=== PATIENT | female | born 1935 | race Caucasian/White ===

== ENCOUNTER → 2017-08-07 12:31 | Outpatient (CLI) | payer MEDICARE, OTHER, SELFPAY ==
--- NOTE | 2017-08-07 | DI.RAD.S_ITS ---
PROCEDURE: FL BARIUM SWALLOW W SPEECH INDICATIONS: DYSPHAGIA TECHNIQUE: Examination was conducted in conjunction with speech pathology per standard protocol. In the lateral projection, filming was performed of the patient swallowing. AP projection filming may also be performed with patient swallowing. COMPARISON: None. FINDINGS: Function: The oral preparatory phase appears normal, with proper containment. The subsequent oral propulsive phase, pharyngeal phase, and esophageal phase of swallowing also appear normal with all proffered substances. No laryngotracheal penetration or aspiration. No pathologic vallecular pooling. In the AP view with swallowing of thick barium, secondary peristalsis appeared sluggish with residual in the proximal esophagus Morphology: No cricopharyngeal bar is identified. No cervical esophageal webs. No Zenker's diverticulum. No strictures. IMPRESSION: Normal-appearing modified barium swallow. Please see speech therapist report for details. Dictated by: Srini Bauer M.D. on 08/07/2017 at 13:46 Approved by: Srini Bauer M.D. on 08/07/2017 at 13:47
--- NOTE | 2017-08-11 11:55 | ST.SWALLOW ---
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 Modified Barium Swallow Study Start: 08/07/17 14:23 Freq: Status: Active Protocol: Document 08/07/17 14:24 TLC (Rec: 08/07/17 14:27 TLC [id number]) Modified Barium Swallow Study Total Time Visit Start Time 12:50 Visit Stop Time 01:10 Total Visit Minutes 20 Referral Referring Physician Matheus Reason for Referral hoarseness, swallowing difficulties Setting Setting Outpatient Care Patient Information Identification Type Name Patient History Oxana is an 82 year old female with history of two esophageal surgeries (1998, 1999) who presents with recent onset (8 months ago) of loss of smell and taste as well as hoarseness which she states varies from day to day. She has thyroid nodules and GERD for which she takes Nexium; however, she denied any neurological history or other significant medical history. She denies any coughing or choking when swallowing, but states occasionally she feels like food/secretions get stuck in her throat. Patient Positioning Position View Lat-A/P Imaging Lateral View Textures Administered Trials Presented Thin Liquid via Spoon Thin Liquid via Cup [place] Liquid via Spoon [place] Liquid via Cup Honey Liquid via Spoon Dysphagia Blenderized Textures Regular Textures Oral Phase Source: MBSIMP (TM) (C) Bolus Specific Scoring Grid Lip Closure No Impairment (WNL) Tongue Control During Bolus Hold No Impairment (WNL) Bolus Prep/Mastication No Impairment (WNL) Bolus Transport/Lingual Motion No Impairment (WNL) Oral Residue Mild Impairment Residue Clearing Mild Impairment Additional Oral Phase Observations Observed residue collection on tongue with all textures. Pharyngeal Phase Source: MBSIMP (TM) (C) Bolus Specific Scoring Grid Delayed Initiation of Pharyngeal Swallow No Soft Palate Elevation No Impairment (WNL) Clearance of Residue Along Tongue Base No Impairment (WNL) Laryngeal Elevation No Impairment (WNL) Anterior Hyoid Movement No Impairment (WNL) Epiglottic Range of Motion No Impairment (WNL) Vallecular Residue Yes Clearance of Vallecular Residue Mild Impairment Laryngeal Vestibular Closure No Impairment (WNL) Pharyngeal Contraction No Impairment (WNL) Posterior Pharyngeal Wall Residue Yes Clearance of Posterior Pharyngeal Wall Mild Impairment Residue Upper Esophageal Sphincter Opening No Impairment (WNL) Residue in the Pyriform Sinuses Yes Clearance of Residue in the Pyriform Mild Impairment Sinuses Additional Pharyngeal Phase Observations Moderate pharyngeal residue in vallecula and pyriform sinuses with thin liquids. Trial of throat clear and double swallow decreased residue but did not clear fully. Mild residue in vallecular with nectar thick liquids and honey thick liquids. No penetration or aspiration observed during the study. A/P View Textures Administered Trials Presented [place] Liquid via Cup Dysphagia Blenderized Textures A/P View Observations Pharyngeal Contraction No Impairment (WNL) Esophageal Observations Esophageal Function Observed esophageal retention with pudding thick texture due to decreased peristalsis per radiologist. See radiologist report for further details. Clinical Impressions Findings Oxana presents with mild oropharyngeal dysphagia characterized by collection of oral and pharyngeal residue with thin liquids and solid textures which does not clear fully with a second swallow or liquid wash. Oxana may benefit from 3-5 outpatient speech therapy visits for ongoing education as well as implementation of a home exercise program consisting of pharyngeal strengthening exercises in an effort to reduce pharyngeal residue and improve overall swallow function. Given reports of vocal changes /hoarseness, recommend ENT consult for further evaluation as well as GI consult for evaluation of esophageal peristalsis. Patient Appropriate for Therapy No Recommendations Diet Liquids Order Thin Diet Order Regular Medication Recommendation As Tolerated Treatment Plan Recommended Referrals GI Consult ENT Consult Compensatory Strategies Recommendations Sitting Upright (90 deg) Double Swallow Small Bites and Sips Alternate Liquids/Solids Placement Recommendation After Discharge Home Please Sign and Return: I have reviewed this Plan of Care and certify that the skilled therapy services above are required to meet the patient???s needs. Physician Signature Date Printed Name and Credentials
== END ==
PROVIDERS: Family Provider Family Medicine; PCP Family Medicine; Visit Provider Family Medicine
DX: R13.10 Dysphagia, unspecified (principal)
CPT/HCPCS: 74230; 92611

== ENCOUNTER 2018-01-20 17:14 | Emergency (ER) | payer MEDICARE, OTHER, SELFPAY ==
--- NOTE | 2018-01-20 17:19 | DI.RAD.S_ITS ---
PROCEDURE: XR CHEST 1V INDICATIONS: chest pain TECHNIQUE: One view of the chest was acquired. COMPARISON: [facility], , CHEST 1 VIEW, 05/11/2016, 15:58. FINDINGS: Surgical changes and devices: None. Lungs and pleura: No pleural effusions or pneumothorax. Lungs are clear. Diffuse interstitial disease/scarring. Mediastinum: Mediastinal contours appear normal. Heart size is normal. Bones and chest wall: No suspicious bony lesions. Overlying soft tissues appear unremarkable. IMPRESSION: No acute disease. Dictated by: Allen Ling M.D. on 01/20/2018 at 17:43 Approved by: Allen Ling M.D. on 01/20/2018 at 17:45
[2018-01-20 17:24] VITALS: BP 140/74; PULSE 59; RESP 17; TEMP 36.6; O2SAT 100; BMI 21.9
[2018-01-20 17:30] VITALS: BP 118/73; PULSE 58; RESP 16; O2SAT 100
--- NOTE | 2018-01-20 17:37 | ED.CHESTPAIN ---
HPI - Chest Pain <Robert Rowland, DO - Last Filed: 01/24/18 07:15> General Chief Complaint: Chest Pain Stated Complaint: Chest Pains Time Seen by Provider: 01/20/18 17:32 Source: patient Mode of arrival: ambulatory Limitations: no limitations History of Present Illness HPI narrative: Patient is an 82-year-old female here for evaluation of left-sided chest pain. She states that it started yesterday morning. She states that it feels like a pressure. States that it has been a constant pain however she has had very brief episodes of having no pain. Went to bed with it last night. Had problems sleeping last night because of the pain. Had all day today. No shortness of breath. 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 States the pain is not worse with palpation or movement or deep breaths. Related Data Home Medications Medication Instructions Recorded Confirmed melatonin 3 mg PO HS #0 06/23/16 12/28/17 alprazolam 0.25 mg tablet 0.25 mg PO DAILY 08/20/17 01/20/18 cyanocobalamin (vit B-12) 1,000 1,000 mcg PO DAILY 08/20/17 12/28/17 mcg tablet esomeprazole magnesium 40 mg 40 mg PO BID cap 12/28/17 12/28/17 capsule,delayed release colesevelam [WelChol] 01/20/18 colesevelam [WelChol] 2 tab PO BID 01/20/18 01/20/18 fluticasone 1 spray INTRANASAL DAILY PRN 01/20/18 01/20/18 nefazodone 500 mg PO BEDTIME 01/20/18 01/20/18 warfarin 1 dose PO DIRECTED 01/20/18 01/20/18 Previous Rx's Medication Instructions Recorded hyoscyamine 0.125 mg 0.125 mg PO ONCE PRN #10 tab 08/20/17 disintegrating tablet FISH OIL 1,200 mg PO .QD #30 08/28/17 arginine (L-arginine) 500 mg 500 mg PO .QHS #30 cap 08/28/17 capsule calcium carbonate 500 mg calcium 500 mg PO BID #60 cap 08/28/17 (1,250 mg) capsule cholecalciferol (vitamin D3) 400 400 unit PO DAILY #30 cap 08/28/17 unit capsule ezetimibe 10 mg tablet 5 mg PO DAILY #30 tab 08/28/17 multivitamin tablet 1 tab PO DAILY #30 tab 08/28/17 niacin 50 mg tablet 50 mg PO BID #60 tab 08/28/17 trazodone 50 mg tablet 50 mg PO BEDTIME PRN #30 tab 08/28/17 Allergies Allergy/AdvReac Type Severity Reaction Status Date / Time Sulfa (Sulfonamide Allergy Severe TROUBLE Verified 01/20/18 17:24 Antibiotics) BREATHING [SULFA (SULFONAMIDE ANTIBIOTICS)] morphine [MORPHINE] Allergy Unknown Verified 01/20/18 17:24 Penicillins [PENICILLINS] Allergy Unknown Verified 01/20/18 17:24 Review of Systems <Robert Rowland DO - Last Filed: 01/24/18 07:15> Constitutional Denies fever(s) and Denies headache(s) ENT Ears, Nose, Mouth, and Throat: Denies headache(s) Cardiovascular Reports chest pain, Denies chest pain with activity, Denies edema, Denies irregular heart rhythm, Denies leg edema, Denies palpitations, Denies dyspnea and Denies slow heart rate Respiratory Denies cough and Denies dyspnea Gastrointestinal Gastrointestinal: Denies abdominal pain, Denies nausea and Denies vomiting Musculoskeletal Denies myalgias and Denies arthralgias Integumentary/Breasts Denies lesions and Denies rash Neurologic Denies confusion and Denies headache(s) Psychiatric Denies confusion Endocrine Denies palpitations Hematologic/Lymphatic Reports easy bleeding (On Coumadin) Exam <DO Guerrero Du Last Filed: 01/24/18 07:15> Initial Vital Signs Initial Vital Signs: Vital Signs Temperature 97.9 F 01/20/18 17:24 Pulse Rate 59 L 01/20/18 17:24 Respiratory Rate 17 01/20/18 17:24 Blood Pressure 140/74 01/20/18 17:24 Pulse Oximetry 100 01/20/18 17:24 Const General: cooperative, healthy appearing, comfortable, well developed, well groomed and No acute distress Orientation: alert, awake and oriented x3 HENMT Head: normal to inspection and normocephalic Chest Other: No tenderness to palpation in the left anterior chest wall Resp Effort & Inspection: normal respiratory effort and able to speak in complete sentences Auscultation: clear to auscultation bilaterally Cardio Rate: regular rate Rhythm: regular rhythm Pulses: radial pulses present GI Inspection: non-distended Palpation: soft Skin Lesions: no lesions Rashes: no rashes Neuro General: alert, awake and oriented x3 Extrem General: normal to inspection, capillary refill normal and No edema Psych Appearance: grossly normal and well kempt <Priscilla Snider DO - Last Filed: 01/20/18 20:00> Initial Vital Signs Initial Vital Signs: Vital Signs Temperature 97.9 F 01/20/18 17:24 Pulse Rate 59 L 01/20/18 17:24 Respiratory Rate 17 01/20/18 17:24 Blood Pressure 140/74 01/20/18 17:24 Pulse Oximetry 100 01/20/18 17:24 Course <Robert Rowland DO - Last Filed: 01/24/18 07:15> Orders Ordered: Discontinued Medications Sodium Chloride (Normal Saline 0.9%) 1,000 mls @ 1,000 mls/hr IV BOLUS ONE Stop: 01/20/18 18:36 Last Infusion: 01/20/18 19:24 Dose: 1,000 mls/hr Admin: 01/20/18 18:18 Dose: 1,000 mls/hr Vital Signs - 8 hr 01/20/18 17:24 01/20/18 17:30 01/20/18 17:49 Temperature 97.9 F Pulse Rate 59 L 58 L 108 H Respiratory Rate 17 16 16 Blood Pressure 140/74 Blood Pressure [Right Arm] 118/73 133/83 Pulse Oximetry 100 100 96 01/20/18 18:00 01/20/18 18:58 Temperature Pulse Rate 60 56 L Respiratory Rate 16 16 Blood Pressure Blood Pressure [Right Arm] 128/67 Pulse Oximetry 99 99 <Priscilla Snider DO - Last Filed: 01/20/18 20:00> Orders Ordered: Discontinued Medications Sodium Chloride (Normal Saline 0.9%) 1,000 mls @ 1,000 mls/hr IV BOLUS ONE Stop: 01/20/18 18:36 Last Infusion: 01/20/18 19:24 Dose: 1,000 mls/hr Admin: 01/20/18 18:18 Dose: 1,000 mls/hr Vital Signs - 8 hr 01/20/18 17:24 01/20/18 17:30 11/07/18 17:49 Temperature 97.9 F Pulse Rate 59 L 58 L 108 H Respiratory Rate 17 16 16 Blood Pressure 140/74 Blood Pressure [Right Arm] 118/73 133/83 Pulse Oximetry 100 100 96 01/20/18 18:00 01/20/18 18:58 Temperature Pulse Rate 60 56 L Respiratory Rate 16 16 Blood Pressure Blood Pressure [Right Arm] 128/67 Pulse Oximetry 99 99 MDM - Chest Pain <Robert Rowland DO - Last Filed: 01/24/18 07:15> Lab Data Attestation: I reviewed the patient's lab results. Result diagrams: 01/20/18 17:40 01/20/18 17:40 Lab Results 01/20/18 01/20/18 01/20/18 Range/Units 17:40 17:40 17:40 WBC 5.4 (4.5-11.0) X10^3/uL RBC 4.53 (4.0-5.2) X10^6/uL Hgb 14.1 (12.0-16.0) g/dL Hct 42.4 (36-46) % MCV 93.5 (80-100) fL MCH 31.0 (26-34) PG MCHC 33.2 (30-36) % RDW 13.8 (11.6-14.8) % Plt Count 265 (150-400) X10^3/uL Neut % (Auto) 65.0 (50-75) % Lymph % (Auto) 25.7 (25-40) % [place] % (Auto) 6.3 (3-14) % Eos % (Auto) 1.8 L (2-4) % Baso % (Auto) 1.2 (0-2) % Neut # (Auto) 3500 (8340-8570) /uL PT 28.7 H (10.1-12.7) SECONDS INR 2.6 H (0.9-1.3) APTT 38 H (26.4-36.2) SECONDS Sodium 143 (137-145) mmol/L Potassium 4.6 (3.4-5.1) mmol/L Chloride 108 H (98-107) mmol/L Carbon Dioxide 28 (22-32) mmol/L BUN 17 (7-17) mg/dL Creatinine 0.90 (0.52-1.04) mg/dL Estimated GFR > 60.0 (>60) mL/min BUN/Creatinine Ratio 18.9 (6-22) Glucose 125 H (80-110) mg/dL Calcium 8.9 (8.4-10.2) mg/dL Total Bilirubin 0.8 (0.2-1.3) mg/dL AST 41 H (14-36) IU/L ALT 37 (9-52) IU/L Alkaline Phosphatase 76 (38-126) U/L Total Creatine Kinase 91 (30-135) U/L CK-MB (CK-2) TNP CK-MB (CK-2) Rel Index TNP Troponin I 0.032 (0.01-0.034) ng/mL Total Protein 7.0 (6.3-8.2) g/dL Albumin 4.4 (3.5-5.0) g/dL Globulin 2.6 (1.7-4.1) g/dL Albumin/Globulin Ratio 1.7 (1.0-2.8) Lipase 68 (23-300) U/L Imaging Data Chest x-ray: Radiologist's impression: PROCEDURE: XR CHEST 1V INDICATIONS: chest pain TECHNIQUE: One view of the chest was acquired. COMPARISON: formerly [facility], CHEST 1 VIEW, 05/11/2016, 15:58. FINDINGS: Surgical changes and devices: None. Lungs and pleura: No pleural effusions or pneumothorax. Lungs are clear. Diffuse interstitial disease/scarring. Mediastinum: Mediastinal contours appear normal. Heart size is normal. Bones and chest wall: No suspicious bony lesions. Overlying soft tissues appear unremarkable. IMPRESSION: No acute disease. Dictated by: Allen Ling M.D. on 01/20/2018 at 17:43 Approved by: Allen Ling M.D. on 01/20/2018 at 17:45 ECG Data Attestation: I personally reviewed and interpreted this ECG as follows: Prior ECG tracings: not available for review Interpretation: Sinus bradycardia Ventricular rate of 58 Normal axis Normal QRS Normal QTC No ST T wave changes MDM Narrative Medical decision making narrative: Patient is on Coumadin for left lower extremity DVT. Her chest x-ray is unremarkable. EKG shows no signs of ischemia. Has had symptoms since yesterday morning. I do feel that a CT PE protocol is warranted for the discomfort. Care turned over to night provider at change of shift to follow up on CT results. <Priscilla Snider, DO - Last Filed: 01/20/18 20:00> Lab Data Attestation: I reviewed the patient's lab results. Lab Results 01/20/18 01/20/18 01/20/18 Range/Units 17:40 17:40 17:40 WBC 5.4 (4.5-11.0) X10^3/uL RBC 4.53 (4.0-5.2) X10^6/uL Hgb 14.1 (12.0-16.0) g/dL Hct 42.4 (36-46) % MCV 93.5 (80-100) fL MCH 31.0 (26-34) PG MCHC 33.2 (30-36) % RDW 13.8 (11.6-14.8) % Plt Count 265 (150-400) X10^3/uL Neut % (Auto) 65.0 (50-75) % Lymph % (Auto) 25.7 (25-40) % [place] % (Auto) 6.3 (3-14) % Eos % (Auto) 1.8 L (2-4) % Baso % (Auto) 1.2 (0-2) % Neut # (Auto) 3500 (2042-2493) /uL PT 28.7 H (10.1-12.7) SECONDS INR 2.6 H (0.9-1.3) APTT 38 H (26.4-36.2) SECONDS Sodium 143 (137-145) mmol/L Potassium 4.6 (3.4-5.1) mmol/L Chloride 108 H (98-107) mmol/L Carbon Dioxide 28 (22-32) mmol/L BUN 17 (7-17) mg/dL Creatinine 0.90 (0.52-1.04) mg/dL Estimated GFR > 60.0 (>60) mL/min BUN/Creatinine Ratio 18.9 (6-22) Glucose 125 H (80-110) mg/dL Calcium 8.9 (8.4-10.2) mg/dL Total Bilirubin 0.8 (0.2-1.3) mg/dL AST 41 H (14-36) IU/L ALT 37 (9-52) IU/L Alkaline Phosphatase 76 (38-126) U/L Total Creatine Kinase 91 (30-135) U/L CK-MB (CK-2) TNP CK-MB (CK-2) Rel Index TNP Troponin I 0.032 (0.01-0.034) ng/mL Total Protein 7.0 (6.3-8.2) g/dL Albumin 4.4 (3.5-5.0) g/dL Globulin 2.6 (1.7-4.1) g/dL Albumin/Globulin Ratio 1.7 (1.0-2.8) Lipase 68 (23-300) U/L Imaging Data Chest x-ray: Radiologist's impression: [address] [id number] [address] Scan Report Signed Patient: Oxana Spencer LMR#: [id number] : 8Acct:[id number] Age/Sex: 82 / FDate of Service: 01/20/18 Loc: ED Accession Number: [id number] Procedure: CT angio chest PE protocol Ordering Provider: Robert Rowland D.O. PROCEDURE: CT ANGIO CHEST PE PROTOCOL INDICATIONS: hx of DVT now with L sided chest pain TECHNIQUE: After the administration of intravenous contrast, 2 mm thick sections acquired from the pulmonary apices to the posterior costophrenic angles. 3-dimensional maximum intensity projection (MIP) coronal and sagittal reformats were then acquired through the thorax. For radiation dose reduction, the following was used: automated exposure control, adjustment of mA and/or kV according to patient size. COMPARISON: None. FINDINGS: Image quality: Excellent. Pulmonary arteries: Pulmonary arteries are normal in size, and demonstrate no intraluminal filling defects to suggest central pulmonary embolism. Lungs and pleura: Lungs are clear. No pleural effusions or pneumothorax. Central and peripheral airways are patent. Mediastinum: Heart size is normal, without pericardial effusion. No mediastinal or hilar adenopathy. Incidental aberrant right subclavian artery Thoracic aorta is normal in caliber and enhancement. Esophagus is normal in caliber, without hiatal hernia. Bones and chest wall: No suspicious bony lesions. Ribs and thoracic spine appear intact throughout. Thyroid gland unremarkable. No axillary or supraclavicular adenopathy. Abdomen: Visualized upper abdominal solid organs appear normal in the early arterial phase of enhancement. IMPRESSION: No evidence of pulmonary embolism. No evidence of aortic dissection. Mild cardiomegaly. No acute consolidation. Subsegmental scattered atelectasis. Dictated by: Allen Ling M.D. on 01/20/2018 at 18:52 Approved by: Allen Ling M.D. on 01/20/2018 at 18:56 CTA PE: Radiologist's impression: ECG Data Attestation: I personally reviewed and interpreted this ECG as follows: Interpretation: Sinus bradycardia with a rate of 58, P are 192, QRS 93 and QTC of 432. No ST elevation or depression. Prior EKG from 06/19/17 appears similar except III and avL. These may be flipped leads vs. nonspecific change MDM Narrative Medical decision making narrative: Patient was signed out to myself by Dr. Rowland, patient's lab work does not show any acute changes troponin. EKG does not show any acute changes. Patient has EKG from 06/19/2017 that appears similar except 3 and aVL. The may be flipped. No other ST changes appreciated. CTA for PE is negative for pulmonary embolism, no signs of dissection or consolidation, etc. Patient has had continuous chest pain since yesterday morning, with no elevation in troponin or concerning EKG changes. The rest of her lab work seems fairly appropriate. Her CTA does not show a PE, dissection or other changes. She have a history of esophageal surgery but this also does not show any acute findings. She states she has had some issues with GERD and reflux but this feels different. We discussed signs and symptoms to watch and reasons to return emergently. Patient is comfortable with the plan at this time. She has not had anything for pain but she states she can take Tylenol if she feels she needs it she feels that it is almost gone at this time. Discharge Plan Departure Patient Disposition: Home Clinical Impression: Chest pain Discharge Date/Time: 01/20/18 19:17 Interventions: ED Discharge Assessment Last Done: 01/20/18 19:27 Instructions: DI for Chest Pain Activity Restrictions/Additional Instructions: Follow-up with your primary care physician in the next 1-2 days for recheck. Call for an appointment. Continue home medications as prescribed. Return to the emergency department for recurrent or worsening symptoms, shortness of breath, passing out or lightheadedness, new weakness, numbness or other new or concerning symptoms. Prescriptions: No Action melatonin 3 MG tablet 3 mg PO HS Qty: 0 RF: 0 esomeprazole magnesium [Nexium] 40 mg capsule,delayed release(DR/EC) 40 mg PO BID RF: 0 hyoscyamine sulfate 0.125 mg tablet,disintegrating 0.125 mg PO ONCE PRN (Reason: dyspepsia) Qty: 10 RF: 0 alprazolam 0.25 mg tablet 0.25 mg PO DAILY RF: 0 cyanocobalamin (vitamin B-12) [Vitamin B-12] 1,000 mcg tablet 1,000 mcg PO DAILY RF: 0 multivitamin tablet 1 tab PO DAILY Qty: 30 RF: 0 trazodone 50 mg tablet 50 mg PO BEDTIME PRN (Reason: insomnia) Qty: 30 RF: 0 calcium carbonate 500 mg calcium (1,250 mg) capsule 500 mg PO BID Qty: 60 RF: 0 niacin 50 mg tablet 50 mg PO BID Qty: 60 RF: 0 arginine (L-arginine) 500 mg capsule 500 mg PO .QHS Qty: 30 RF: 0 cholecalciferol (vitamin D3) 400 unit capsule 400 unit PO DAILY Qty: 30 RF: 0 ezetimibe 10 mg tablet 5 mg PO DAILY Qty: 30 RF: 0 FISH OIL 1,200 mg 1,200 mg PO .QD Qty: 30 RF: 0 colesevelam [WelChol] 625 mg tablet RF: 0 fluticasone 50 mcg/actuation spray,suspension 1 spray Intranasal DAILY PRN (Reason: Allergy Symptoms) RF: 0 nefazodone 250 mg tablet 500 mg PO BEDTIME RF: 0 colesevelam [WelChol] 625 mg tablet 2 tab PO BID RF: 0 warfarin 5 mg tablet 1 dose PO DIRECTED RF: 0 Referrals: Evita Jarvis DO [Primary Care Provider] -
[2018-01-20 17:49] VITALS: BP 133/83; PULSE 108; RESP 16; O2SAT 96
[2018-01-20 17:52] LABS: Add Manual Diff / Slide Review NO; Basophils Percent Auto 1.2 % (0-2); Eosinophils Percent Auto 1.8 % (2-4); Hematocrit 42.4 % (36-46); Hemoglobin 14.1 g/dL (12.0-16.0); Lymphocytes Percent Auto 25.7 % (25-40); Mean Corpuscular HGB Conc 33.2 % (30-36); Mean Corpuscular Volume 93.5 fL (80-100); Monocytes Percent Auto 6.3 % (3-14); Neutrophils Absolute Auto 3500 /uL (3000-5900); Platelet Count 265 X10^3/uL (150-400); Red Blood Cell Count 4.53 X10^6/uL (4.0-5.2); Red Cell Distribution Width 13.8 % (11.6-14.8); White Blood Cell Count 5.4 X10^3/uL (4.5-11.0)
--- NOTE | 2018-01-20 17:53 | PC.NURSE ---
pt reports, left chest tightness intermittent relief lasting seconds, then tight again , denies other associated sxs. denies fever,vomiting or diarrhea, denies trauma or injuries. hx of dvt , pt on warfarin.
[2018-01-20 17:59] LABS: INR 2.6 (0.9-1.3); Prothrombin Time 28.7 SECONDS (10.1-12.7)
[2018-01-20 18:00] VITALS: BP 128/67; PULSE 60; RESP 16; O2SAT 99
[2018-01-20 18:01] LABS: PTT Partial Thromboplastin Tim 38 SECONDS (26.4-36.2)
[2018-01-20 18:05] LABS: Alanine Aminotransferase 37 IU/L (9-52); Albumin 4.4 g/dL (3.5-5.0); Albumin Globulin Ratio 1.7 (1.0-2.8); Alkaline Phosphatase 76 U/L (38-126); Aspartate Aminotransferase 41 IU/L (14-36); BUN Creatinine Ratio 18.9 (6-22); Bilirubin Total 0.8 mg/dL (0.2-1.3); Blood Urea Nitrogen 17 mg/dL (7-17); Calcium 8.9 mg/dL (8.4-10.2); Carbon Dioxide 28 mmol/L (22-32); Chloride 108 mmol/L (98-107); Creatine Kinase 91 U/L (30-135); Estimated Glomerular Filt Rate > 60.0 mL/min (>60); Globulin 2.6 g/dL (1.7-4.1); Glucose 125 mg/dL (80-110); Lipase 68 U/L (23-300); Sodium 143 mmol/L (137-145)
[2018-01-20 18:07] LABS: HEMOLYSIS 68 (0-50)
[2018-01-20 18:08] LABS: Potassium 4.6 mmol/L (3.4-5.1)
[2018-01-20 18:16] LABS: Troponin I 0.032 ng/mL (0.01-0.034)
[2018-01-20] MEDS: SODIUM CHLORIDE 0.9% 1,000 ML 1000 ML IV (18:18)
[2018-01-20 18:58] VITALS: PULSE 56; RESP 16; O2SAT 99
== END 2018-01-20 19:17 | disposition home or self-care (01) ==
PROVIDERS: Emergency Medicine; Emergency Provider Emergency Medicine; Family Provider Family Medicine; PCP Family Medicine
DX: R07.89 Other chest pain (principal)
CPT/HCPCS: 36591; 71045; 71275; 80053; 82550; 83690; 84484; 85025; 85610; 85730; 93005; 93041; 96360; 99284; 99285; Q9967

== ENCOUNTER → 2018-02-06 10:54 | Outpatient (CLI) | payer MEDICARE, OTHER, SELFPAY | PROVIDERS: Family Provider Family Medicine; PCP Family Medicine; Visit Provider Physician Assistant | DX: N39.0 Urinary tract infection, site not specified (principal) | CPT/HCPCS: 87077; 87086; 87186 ==

== ENCOUNTER → 2018-03-22 11:06 | Outpatient (CLI) | payer MEDICARE, OTHER, SELFPAY | PROVIDERS: Family Provider Family Medicine; PCP Family Medicine; Visit Provider Physician Assistant | DX: R30.0 Dysuria (principal) | CPT/HCPCS: 87077; 87086; 87186 ==

== ENCOUNTER 2018-03-22 19:46 | Emergency (ER) | payer MEDICARE, OTHER, SELFPAY ==
[2018-03-22 19:49] VITALS: BP 133/69; PULSE 60; RESP 14; TEMP 36.3; O2SAT 98
--- NOTE | 2018-03-22 19:52 | DI.RAD.S_ITS ---
PROCEDURE: XR KNEE LT 3V INDICATIONS: fall TECHNIQUE: 3 views of the knee were acquired. COMPARISON: None. FINDINGS: Bones: No fractures or dislocations. No suspicious bony lesions. Soft tissues: Mild joint effusion. No suspicious soft tissue calcifications. IMPRESSION: Mild effusion. No visualized acute fracture or dislocation. However, if clinical concern and/or pain persist, short interval imaging followup in 7-10 days is recommended, as occult injury cannot be definitively excluded. Dictated by: Sirisha Mason M.D. on 03/22/2018 at 20:07 Approved by: Sirisha Mason M.D. on 03/22/2018 at 20:08
[2018-03-22] MEDS: ACETAMINOPHEN 325 MG TABLET 650 MG PO (19:55)
--- NOTE | 2018-03-22 20:11 | ED_ITS ---
HPI - Extremity Injury (Lower) <Anusha Vanegas PA-C - Last Filed: 03/22/18 21:48> General Chief Complaint: Extremity Injury, Lower Stated Complaint: FALL LEFT KNEE INJURY Time Seen by Provider: 03/22/18 20:05 Source: patient Mode of arrival: ambulatory Limitations: no limitations History of Present Illness HPI Narrative: This 82-year-old female states that she was walking on a hardwood floor in socks when she slipped and fell forward, taking the brunt of the impact on her left knee, a little bit on her right. She states that she has had pain in the left medial knee area since. She denies any other injury such as head contusion, or pain elsewhere in the extremity. She states that it has been very difficult to try to walk secondary to the pain. Related Data Home Medications Medication Instructions Recorded Confirmed melatonin 3 mg PO HS #0 06/23/16 03/22/18 alprazolam 0.25 mg tablet 0.25 mg PO DAILY 08/20/17 03/22/18 cyanocobalamin (vit B-12) 1,000 1,000 mcg PO DAILY 08/20/17 03/22/18 mcg tablet esomeprazole magnesium 40 mg 40 mg PO BID cap 12/28/17 03/22/18 capsule,delayed release colesevelam [WelChol] 01/20/18 03/22/18 colesevelam [WelChol] 2 tab PO BID 01/20/18 03/22/18 fluticasone 1 spray INTRANASAL DAILY PRN 01/20/18 03/22/18 nefazodone 500 mg PO BEDTIME 01/20/18 03/22/18 warfarin 1 dose PO DIRECTED 01/20/18 03/22/18 Previous Rx's Medication Instructions Recorded hyoscyamine 0.125 mg 0.125 mg PO ONCE PRN #10 tab 08/20/17 disintegrating tablet FISH OIL 1,200 mg PO .QD #30 08/28/17 arginine (L-arginine) 500 mg 500 mg PO .QHS #30 cap 08/28/17 capsule calcium carbonate 500 mg calcium 500 mg PO BID #60 cap 08/28/17 (1,250 mg) capsule cholecalciferol (vitamin D3) 400 400 unit PO DAILY #30 cap 08/28/17 unit capsule ezetimibe 10 mg tablet 5 mg PO DAILY #30 tab 08/28/17 multivitamin tablet 1 tab PO DAILY #30 tab 08/28/17 niacin 50 mg tablet 50 mg PO BID #60 tab 08/28/17 trazodone 50 mg tablet 50 mg PO BEDTIME PRN #30 tab 08/28/17 lidocaine [Lidoderm] 2 patch TOP DAILY PRN #30 each 03/22/18 nitrofurantoin 100 mg PO BID 7 Days #14 cap 03/22/18 monohydrate/macrocrystals 100 mg capsule Allergies Allergy/AdvReac Type Severity Reaction Status Date / Time Sulfa (Sulfonamide Allergy Severe TROUBLE Verified 03/22/18 10:55 Antibiotics) BREATHING [SULFA (SULFONAMIDE ANTIBIOTICS)] morphine [MORPHINE] Allergy Unknown Verified 03/22/18 10:55 Penicillins [PENICILLINS] Allergy Unknown Verified 03/22/18 10:55 Review of Systems <TREVON Patricia Last Filed: 03/22/18 21:48> Review of Systems All systems reviewed & are unremarkable except as noted in HPI and below Exam <TREVON Patricia Last Filed: 03/22/18 21:48> Narrative Exam Narrative: GENERAL APPEARANCE: Patient sitting comfortably, in no distress. LUNGS: Clear to auscultation bilaterally. HEART: Rate and rhythm regular without murmur, normal S1 and S2, no S3 or S4. MUSCULOSKELETAL: Left medial knee there is mild effusion. Exquisitely tender over the medial joint line as well as the soft tissue medial to the joint line, inferior border of the femur and superior border of the tibia medially. No tenderness elsewhere over the thigh, hip, lower leg, ankle or foot. She has reduced left knee flexion to about 90? with tenderness, and extension to about 10? with tenderness. Normal range of motion in the ankle and foot NEUROVASCULAR: Left foot is warm and pink with pedal pulses intact and sensation grossly intact over the lower extremity Initial Vital Signs Initial Vital Signs: Vital Signs Temperature 97.4 F L 03/22/18 19:49 Pulse Rate 60 03/22/18 19:49 Respiratory Rate 14 03/22/18 19:49 Blood Pressure 133/69 03/22/18 19:49 Pulse Oximetry 98 03/22/18 19:49 <Robert Rowland DO - Last Filed: 03/22/18 23:54> Initial Vital Signs Initial Vital Signs: Vital Signs Temperature 97.4 F L 03/22/18 19:49 Pulse Rate 60 03/22/18 19:49 Respiratory Rate 14 03/22/18 19:49 Blood Pressure 133/69 03/22/18 19:49 Pulse Oximetry 98 03/22/18 19:49 Course <Anusha Vanegas PA-C - Last Filed: 03/22/18 21:48> Orders Ordered: ED Orders 03/22/18 19:52 XR knee LT 3V Stat Discontinued Medications Acetaminophen (Tylenol) 650 mg PO NOW ONE Stop: 03/22/18 19:53 Last Admin: 03/22/18 19:55 Dose: 650 mg Lidocaine (Lidoderm) 2 each TOP NOW ONE Stop: 03/22/18 20:20 Last Admin: 03/22/18 20:28 Dose: 2 each Vital Signs - 8 hr 03/22/18 19:49 03/22/18 21:22 Temperature 97.4 F L Pulse Rate 60 65 Respiratory Rate 14 15 Blood Pressure 133/69 Blood Pressure [Left Arm] 110/61 Pulse Oximetry 98 100 <Robert Rowland DO - Last Filed: 03/22/18 23:54> Orders Ordered: ED Orders 03/22/18 19:52 XR knee LT 3V Stat Discontinued Medications Acetaminophen (Tylenol) 650 mg PO NOW ONE Stop: 03/22/18 19:53 Last Admin: 03/22/18 19:55 Dose: 650 mg Lidocaine (Lidoderm) 2 each TOP NOW ONE Stop: 03/22/18 20:20 Last Admin: 03/22/18 20:28 Dose: 2 each Vital Signs - 8 hr 03/22/18 19:49 03/22/18 21:22 Temperature 97.4 F L Pulse Rate 60 65 Respiratory Rate 14 15 Blood Pressure 133/69 Blood Pressure [Left Arm] 110/61 Pulse Oximetry 98 100 MDM - Extremity Injury (Lower) <Anusha Vanegas PA-C - Last Filed: 03/22/18 21:48> Imaging Data knee: Radiologist's impression: View Report History [address] [address] XRay Report Signed Patient: Oxana Spencer MR#: [id number] : 1935 Acct:[id number] Age/Sex: 82 / F Date of Service: 03/22/18 Loc: ED Accession Number: [id number] Procedure: XR knee LT 3V Ordering Provider: Robert Rowland D.O. PROCEDURE: XR KNEE LT 3V INDICATIONS: fall TECHNIQUE: 3 views of the knee were acquired. COMPARISON: None. FINDINGS: Bones: No fractures or dislocations. No suspicious bony lesions. Soft tissues: Mild joint effusion. No suspicious soft tissue calcifications. IMPRESSION: Mild effusion. No visualized acute fracture or dislocation. However , if clinical concern and/or pain persist, short interval imaging followup in 7-10 days is recommended, as occult injury cannot be definitively excluded. Dictated by: Sirisha Mason M.D. on 03/22/2018 at 20:07 Approved by: Sirisha Mason M.D. on 03/22/2018 at 20:08 Discharge Plan Departure Patient Disposition: Home Clinical Impression: Contusion of knee, left, Effusion of left knee joint Discharge Date/Time: 03/22/18 21:45 Interventions: ED Discharge Assessment Last Done: 03/22/18 21:53 Instructions: DI for Knee Effusion, DI for Knee Pain Activity Restrictions/Additional Instructions: Please return if you have any acutely worsening symptoms. Otherwise, please use the knee brace any time your bearing weight, avoid stairs and uneven surfaces. A little bit of gentle walking is okay as you tolerate. Take Tylenol for pain and I have printed a prescription for the patches we put on tonight if you find them helpful (if your insurance does not cover it, you can get a similar patch of 4% lidocaine [id number]). Please follow-up with your PCP by the 1st of next week to assess her progress. As we talked about, you may need further imaging studies or testing if you are not getting better Prescriptions: New lidocaine [Lidoderm] 5 % adhesive patch,medicated 2 patch TOP DAILY PRN (Reason: knee pain/swelling) Qty: 30 RF: 0 No Action nitrofurantoin monohyd/m-cryst 100 mg capsule 100 mg PO BID 7 Days Qty: 14 RF: 0 melatonin 3 MG tablet 3 mg PO HS Qty: 0 RF: 0 esomeprazole magnesium [Nexium] 40 mg capsule,delayed release(DR/EC) 40 mg PO BID RF: 0 hyoscyamine sulfate 0.125 mg tablet,disintegrating 0.125 mg PO ONCE PRN (Reason: dyspepsia) Qty: 10 RF: 0 alprazolam 0.25 mg tablet 0.25 mg PO DAILY RF: 0 cyanocobalamin (vitamin B-12) [Vitamin B-12] 1,000 mcg tablet 1,000 mcg PO DAILY RF: 0 multivitamin tablet 1 tab PO DAILY Qty: 30 RF: 0 trazodone 50 mg tablet 50 mg PO BEDTIME PRN (Reason: insomnia) Qty: 30 RF: 0 calcium carbonate 500 mg calcium (1,250 mg) capsule 500 mg PO BID Qty: 60 RF: 0 niacin 50 mg tablet 50 mg PO BID Qty: 60 RF: 0 arginine (L-arginine) 500 mg capsule 500 mg PO .QHS Qty: 30 RF: 0 cholecalciferol (vitamin D3) 400 unit capsule 400 unit PO DAILY Qty: 30 RF: 0 ezetimibe 10 mg tablet 5 mg PO DAILY Qty: 30 RF: 0 FISH OIL 1,200 mg 1,200 mg PO .QD Qty: 30 RF: 0 colesevelam [WelChol] 625 mg tablet RF: 0 fluticasone 50 mcg/actuation spray,suspension 1 spray Intranasal DAILY PRN (Reason: Allergy Symptoms) RF: 0 nefazodone 250 mg tablet 500 mg PO BEDTIME RF: 0 colesevelam [WelChol] 625 mg tablet 2 tab PO BID RF: 0 warfarin 5 mg tablet 1 dose PO DIRECTED RF: 0 Referrals: Evita Jarvis DO [Primary Care Provider] - <Robert Rowland DO - Last Filed: 03/22/18 23:54> Cosign ED Attending Phani Attestation: I was available for consultation during this patient's emergency department encounter
[2018-03-22] MEDS: LIDOCAINE PATCH 1 EACH ADH..PATCH 2 EACH TOP (20:28)
[2018-03-22 21:22] VITALS: BP 110/61; PULSE 65; RESP 15; O2SAT 100
== END 2018-03-22 21:45 | disposition home or self-care (01) ==
PROVIDERS: Emergency Provider Internal Medicine; Family Provider Family Medicine; PCP Family Medicine
DX: S80.02XA Contusion of left knee, initial encounter (principal); M25.462 Effusion, left knee; W19.XXXA Unspecified fall, initial encounter
CPT/HCPCS: 73562; 99283

== ENCOUNTER → 2018-04-19 12:16 | Outpatient (CLI) | payer MEDICARE, OTHER, SELFPAY ==
[2018-04-19 14:27] LABS: INR 3.5 (0.9-1.3); Prothrombin Time 41.3 SECONDS (10.1-12.7)
== END ==
PROVIDERS: Family Provider Family Medicine; PCP Family Medicine; Visit Provider Family Medicine
DX: I82.409 Acute embolism and thrombosis of unspecified deep veins of unspecified lower extremity (principal)
CPT/HCPCS: 36415; 85610

== ENCOUNTER 2018-04-26 14:06 | Emergency (ER) | payer MEDICARE, OTHER, SELFPAY ==
[2018-04-26 14:09] VITALS: BP 131/69; PULSE 63; RESP 18; TEMP 36.1; O2SAT 99
--- NOTE | 2018-04-26 14:26 | DI.US.S_ITS ---
PROCEDURE: US PERIPH VENOUS LOW EXTREM LT INDICATIONS: PAIN BEHIND KNEE, HX OF DVT TECHNIQUE: Real-time imaging, as well as color and pulse Doppler interrogation, were performed of the lower extremity deep veins from the inguinal ligament to the popliteal fossa. COMPARISON: [facility], , PVE UNILATERAL LEFT, 03/12/2013, 10:25. FINDINGS: The deep veins are normally compressible, and free of intraluminal thrombus. Color and pulse Doppler demonstrate normal phasic intraluminal flow. There is normal augmentation response to distal compression maneuver. In the medial aspect of the left knee in the area of swelling and recent trauma, there is a loculated subcutaneous collection measuring approximately 4.2 x 0.8 x 2.6 cm. There is no internal vascularity on color Doppler interrogation. Findings likely represent a hematoma. There is a fluid collection in the popliteal fossa measuring approximately 2.0 x 2.1 x 1.8 cm compatible with a Bryant's cyst. IMPRESSION: 1. No evidence of deep venous thrombosis in the left lower extremity. 2. Subcutaneous fluid collection medially in the knee likely represents a hematoma given history of trauma. 3. Fluid collection in the popliteal fossa compatible with a Bryant's cyst. Dictated by: Sudeep Ricks M.D. on 04/26/2018 at 15:11 Approved by: Sudeep Ricks M.D. on 04/26/2018 at 15:13
[2018-04-26 15:32] LABS: Add Manual Diff / Slide Review NO; Basophils Absolute Auto 100 /uL (0-100); Basophils Percent Auto 2.2 % (0-2); Eosinophils Absolute Auto 100 /uL (0-450); Eosinophils Percent Auto 2.1 % (2-4); Hematocrit 41.7 % (36-46); Hemoglobin 13.7 g/dL (12.0-16.0); Lymphocytes Absolute Auto 1300 /uL (1100-4500); Lymphocytes Percent Auto 25.4 % (25-40); Mean Corpuscular Hemoglobin 30.3 PG (26-34); Monocytes Absolute Auto 400 /uL (0-900); Monocytes Percent Auto 7.5 % (3-14); Neutrophils Absolute Auto 3300 /uL (1500-7000); Neutrophils Percent Auto 62.8 % (50-75); Platelet Count 276 X10^3/uL (150-400); Red Blood Cell Count 4.53 X10^6/uL (4.0-5.2); Red Cell Distribution Width 14.1 % (11.6-14.8); White Blood Cell Count 5.2 X10^3/uL (4.5-11.0)
[2018-04-26 15:35] LABS: INR 2.6 (0.9-1.3); Prothrombin Time 30.8 SECONDS (10.1-12.7)
--- NOTE | 2018-04-26 16:01 | ED.EXTPRO ---
HPI - Extremity Problem <CLAUDIO Holland - Last Filed: 04/26/18 21:58> General Chief complaint: Extremity Problem,Nontraumatic Stated complaint: left leg behind knee,pain, thinks blood clot Time Seen by Provider: 04/26/18 15:32 Source: patient Mode of arrival: ambulatory Limitations: no limitations History of Present Illness HPI Narrative: 83-year-old female with history of a DVT and is a nonsmoker here for complaint of a swelling and discomfort to her left knee. She reports she has had swelling to the left knee since she had a fall 1 month ago. She slipped on the floor causing her to land on her and knee. She reports that she has had pain and swelling to the knee since this timeframe. She was seen in the emergency room for this and x-ray was negative for fracture. She was put in a knee immobilizer for support and comfort. She reports she has not been using the knee immobilizer over the past couple of weeks. She denies any new trauma to the knee. She states she has had a history of DVT and she is concerned for a blood clot. She is currently on blood thinners. No other concerns or complaints at this timeframe. She is ambulatory into the emergency room. Complaint: extremity swelling Related Data Home Medications Medication Instructions Recorded Confirmed melatonin 3 mg PO HS #0 06/23/16 03/31/18 alprazolam 0.25 mg tablet 0.25 mg PO DAILY 08/20/17 04/26/18 cyanocobalamin (vit B-12) 1,000 1,000 mcg PO DAILY 08/20/17 03/31/18 mcg tablet esomeprazole magnesium 40 mg 40 mg PO BID cap 12/28/17 04/26/18 capsule,delayed release colesevelam [WelChol] 2 tab PO BID 01/20/18 04/26/18 fluticasone 1 spray INTRANASAL DAILY PRN 01/20/18 03/31/18 nefazodone 500 mg PO BEDTIME 01/20/18 04/26/18 warfarin 1 dose PO DIRECTED 01/20/18 04/26/18 Previous Rx's Medication Instructions Recorded hyoscyamine 0.125 mg 0.125 mg PO ONCE PRN #10 tab 08/20/17 disintegrating tablet FISH OIL 1,200 mg PO .QD #30 08/28/17 arginine (L-arginine) 500 mg 500 mg PO .QHS #30 cap 08/28/17 capsule calcium carbonate 500 mg calcium 500 mg PO BID #60 cap 08/28/17 (1,250 mg) capsule cholecalciferol (vitamin D3) 400 400 unit PO DAILY #30 cap 08/28/17 unit capsule ezetimibe 10 mg tablet 5 mg PO DAILY #30 tab 08/28/17 multivitamin tablet 1 tab PO DAILY #30 tab 08/28/17 niacin 50 mg tablet 50 mg PO BID #60 tab 08/28/17 trazodone 50 mg tablet 50 mg PO BEDTIME PRN #30 tab 08/28/17 lidocaine [Lidoderm] 2 patch TOP DAILY PRN #30 each 03/22/18 Allergies Allergy/AdvReac Type Severity Reaction Status Date / Time Sulfa (Sulfonamide Allergy Severe TROUBLE Verified 03/31/18 09:53 Antibiotics) BREATHING [SULFA (SULFONAMIDE ANTIBIOTICS)] morphine [MORPHINE] Allergy Unknown Verified 03/31/18 09:53 Penicillins [PENICILLINS] Allergy Unknown Verified 03/31/18 09:53 Review of Systems <CLAUDIO Holland - Last Filed: 04/26/18 21:58> Constitutional Denies chills, Denies fever(s), Denies lethargy and Denies weakness Eyes Denies change in vision, Denies eye discharge, Denies irritation and Denies loss of vision ENT Ears, Nose, Mouth, and Throat: Denies change in voice, Denies neck pain, Denies sore throat and Denies throat swelling Cardiovascular Denies chest pain, Denies irregular heart rhythm, Denies lightheadedness, Denies palpitations and Denies orthopnea Respiratory Denies wheezing Musculoskeletal Denies neck pain Comments: Left knee swelling and pain Integumentary/Breasts Denies pruritus, Denies erythema, Denies rash and Denies wounds Neurologic Denies confusion, Denies loss of vision and Denies weakness Psychiatric Denies anxiety, Denies confusion, Denies depression, Denies homicidal ideation and Denies suicidal ideation Endocrine Denies palpitations Allergic/Immunologic Denies urticaria, Denies throat swelling and Denies wheezing PFSH <CLAUDIO Holland - Last Filed: 04/26/18 21:58> Medical History Tubular adenoma of colon (Resolved ~04/2016) Insomnia (Chronic) Carpal tunnel syndrome, right (Chronic 2014) Left 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 (Resolved 1994) 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) Thyroid nodule (Chronic 05/24/15) Gastroesophageal reflux disease (Resolved 1997) Asymptomatic carotid artery stenosis (Chronic 05/25/15) Hyperlipidemia (Chronic 01/08/15) Lactose intolerance in adult (Chronic 10/20/16) 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) Anxiety (Chronic) Asthma (Chronic) Depression (Chronic) Eczema (Chronic) Hayfever (Chronic) Peptic ulcer disease (Chronic 1982) Plantar warts (Chronic 1951) Whiplash injury (Chronic) Anemia (Resolved) BCC (basal cell carcinoma of skin) (Resolved 2010) Cataract (Resolved) Chicken pox (Resolved) Colon polyps (Resolved 1991) Fibroids (Resolved 1994) Measles (Resolved) Painful menstrual periods (Resolved) Surgical History Anesthesia (Resolved) History of fundoplication (Resolved 2000) History of phacoemulsification of cataract of left eye with intraocular lens implantation (Resolved 04/12/14) History of phacoemulsification of cataract of right eye with intraocular lens implantation (Resolved 03/22/14) History of tonsillectomy (Resolved ~194) Status post appendectomy (Resolved) Status post cholecystectomy (Resolved) Status post hysterectomy (Resolved 1995) Status post knee surgery (Resolved 1994) History of cataract removal with insertion of prosthetic lens (03/22/14) History of cataract removal with insertion of prosthetic lens (04/12/14) Family History Son Age: 58 CAD (coronary artery disease) Heart attack Son Age: 53 Prostate cancer Father Heart disease Cardiac aneurysm Sister Age: 77 Malignant neoplasm of female breast, unspecified laterality, unspecified site of breast Brother No problems noted. Son No problems noted. Grandfather Heart attack Grandmother Cancer Mother Ovarian cancer Social History Smoking Status: Never smoker Social History Smoking Status: Never smoker Exam <CLAUDIO Holland - Last Filed: 04/26/18 21:58> Initial Vital Signs Initial Vital Signs: Vital Signs Temperature 97.0 F L 04/26/18 14:09 Pulse Rate 63 04/26/18 14:09 Respiratory Rate 18 04/26/18 14:09 Blood Pressure 131/69 04/26/18 14:09 Pulse Oximetry 99 04/26/18 14:09 Const General: cooperative and well developed Nutritional Appearance: well nourished Orientation: alert, awake, oriented x3 and not confused HENIL Mouth: oral mucosae normal and moist mucous membranes Eyes Conjunctivae: conjunctivae normal Sclera: sclerae normal Pupils: PERRL EOM: EOM intact bilaterally Cardio Rate: regular rate Rhythm: regular rhythm Heart Sounds: no click, no gallops, no murmurs and no rubs Pulses: normal peripheral pulses Neuro General: alert, oriented x3, gait normal and no focal motor deficits Speech: speech normal Extrem Other: Slight swelling to the medial aspect of the right knee. No ecchymosis. No open lesions. Full range of motion to the right knee. Distal sensation is intact. Distal pulses are intact. No signs of trauma. <Priscilla Snider DO - Last Filed: 04/30/18 07:10> Initial Vital Signs Initial Vital Signs: Vital Signs Temperature 97.0 F L 04/26/18 14:09 Pulse Rate 63 04/26/18 14:09 Respiratory Rate 18 04/26/18 14:09 Blood Pressure 131/69 04/26/18 14:09 Pulse Oximetry 99 04/26/18 14:09 Course <CLAUDIO Holland - Last Filed: 04/26/18 21:58> Orders Ordered: ED Orders 04/26/18 14:26 US periph venous low extrem lt Stat 04/26/18 15:22 CBC [Complete Blood Count AUTO DIFF] Stat PT [Prothrombin Time INR] Stat Vital Signs - 8 hr 04/26/18 14:09 04/26/18 16:10 Temperature 97.0 F L Pulse Rate 63 56 L Respiratory Rate 18 16 Blood Pressure 131/69 Blood Pressure [Left Arm] 148/77 H Pulse Oximetry 99 100 <Priscilla Snider DO - Last Filed: 04/30/18 07:10> Orders Ordered: ED Orders 04/26/18 14:26 US periph venous low extrem lt Stat 04/26/18 15:22 CBC [Complete Blood Count AUTO DIFF] Stat PT [Prothrombin Time INR] Stat Vital Signs - 8 hr 04/26/18 14:09 04/26/18 16:10 Temperature 97.0 F L Pulse Rate 63 56 L Respiratory Rate 18 16 Blood Pressure 131/69 Blood Pressure [Left Arm] 148/77 H Pulse Oximetry 99 100 MDM - Extremity (Nontraumatic) <CLAUDIO Holland - Last Filed: 04/26/18 21:58> Lab Data Result diagrams: 04/26/18 15:22 Lab Results 04/26/18 04/26/18 Range/Units 15:22 15:22 WBC 5.2 (4.5-11.0) X10^3/uL RBC 4.53 (4.0-5.2) X10^6/uL Hgb 13.7 (12.0-16.0) g/dL Hct 41.7 (36-46) % MCV 92.0 (80-100) fL MCH 30.3 (26-34) PG MCHC 33.0 (30-36) % RDW 14.1 (11.6-14.8) % Plt Count 276 (150-400) X10^3/uL Neut % (Auto) 62.8 (50-75) % Lymph % (Auto) 25.4 (25-40) % [place] % (Auto) 7.5 (3-14) % Eos % (Auto) 2.1 (2-4) % Baso % (Auto) 2.2 H (0-2) % Neut # (Auto) 3300 (7387-0644) /uL Lymph # (Auto) 1300 (6959-2720) /uL [place] # (Auto) 400 (0-900) /uL Eos # (Auto) 100 (0-450) /uL Baso # (Auto) 100 (0-100) /uL PT 30.8 H D (10.1-12.7) SECONDS INR 2.6 H (0.9-1.3) Imaging Data Venous US: Radiologist's impression: [address] [address] Ultrasound Report Signed Patient: Oxana Spencer LMR#: [id number] : 1936Acct:[id number] Age/Sex: 83 / FDate of Service: 04/26/18 Loc: ED Accession Number: [id number] Procedure: US perip venous low extrem lt Ordering Provider: Priscilla Snider D.O. PROCEDURE: US PERIPH VENOUS LOW EXTREM LT INDICATIONS: PAIN BEHIND KNEE, HX OF DVT TECHNIQUE: Real-time imaging, as well as color and pulse Doppler interrogation, were performed of the lower extremity deep veins from the inguinal ligament to the popliteal fossa. COMPARISON: [facility], , PVE UNILATERAL LEFT, 03/12/2013, 10:25. FINDINGS: The deep veins are normally compressible, and free of intraluminal thrombus. Color and pulse Doppler demonstrate normal phasic intraluminal flow. There is normal augmentation response to distal compression maneuver. In the medial aspect of the left knee in the area of swelling and recent trauma, there is a loculated subcutaneous collection measuring approximately 4.2 x 0.8 x 2.6 cm. There is no internal vascularity on color Doppler interrogation. Findings likely represent a hematoma. There is a fluid collection in the popliteal fossa measuring approximately 2.0 x 2.1 x 1.8 cm compatible with a Bryant's cyst. IMPRESSION: 1. No evidence of deep venous thrombosis in the left lower extremity. 2. Subcutaneous fluid collection medially in the knee likely represents a hematoma given history of trauma. 3. Fluid collection in the popliteal fossa compatible with a Bryant's cyst. Dictated by: Sudeep Ricks M.D. on 04/26/2018 at 15:11 Approved by: Sudeep Ricks M.D. on 04/26/2018 at 15:13 [facility] Narrative Medical decision making narrative: CBC was obtained was unremarkable. INR was 2.6 today. ultrasound of the left lower extremity was obtained was negative for any DVT. Ultrasound does show hematoma to the medial aspect of the left knee and also a signs of a Bryant cyst. Due to length of symptoms will have patient follow up with primary care provider for discussion of MRI of the left knee for further evaluation. Patient instructed to use her knee immobilizer for comfort and support. Use [id number] Tylenol as needed for any discomfort. Elevation help with any swelling. For any worsening symptoms return emergency room. <Priscilla Snider DO - Last Filed: 04/30/18 07:10> Lab Data Lab Results 04/26/18 04/26/18 Range/Units 15:22 15:22 WBC 5.2 (4.5-11.0) X10^3/uL RBC 4.53 (4.0-5.2) X10^6/uL Hgb 13.7 (12.0-16.0) g/dL Hct 41.7 (36-46) % MCV 92.0 (80-100) fL MCH 30.3 (26-34) PG MCHC 33.0 (30-36) % RDW 14.1 (11.6-14.8) % Plt Count 276 (150-400) X10^3/uL Neut % (Auto) 62.8 (50-75) % Lymph % (Auto) 25.4 (25-40) % [place] % (Auto) 7.5 (3-14) % Eos % (Auto) 2.1 (2-4) % Baso % (Auto) 2.2 H (0-2) % Neut # (Auto) 3300 (8981-4879) /uL Lymph # (Auto) 1300 (1545-4741) /uL [place] # (Auto) 400 (0-900) /uL Eos # (Auto) 100 (0-450) /uL Baso # (Auto) 100 (0-100) /uL PT 30.8 H D (10.1-12.7) SECONDS INR 2.6 H (0.9-1.3) Discharge Plan Departure Patient Disposition: Home Clinical Impression: Traumatic hematoma of left knee Qualifiers: Encounter type: initial encounter Qualified Code(s): S80.02XA - Contusion of left knee, initial encounter Discharge Date/Time: 04/26/18 16:29 Interventions: ED Discharge Assessment Last Done: 04/26/18 16:26 Instructions: DI for Knee Effusion Activity Restrictions/Additional Instructions: Ultrasound of the left lower extremity was obtained was negative for any blood clots. Signs and symptoms presents as swelling is secondary to a initial injury of the left knee 1 month ago. Due to the amount of time since injury and still had painful and swelling recommend following up with primary care provider and have discussion but obtain MRI for further evaluation. Use knee brace for comfort and support. Elevation help with any swelling. Use [id number] Tylenol as needed for any discomfort. For any worsening symptoms return to the emergency room. Prescriptions: No Action melatonin 3 MG tablet 3 mg PO HS Qty: 0 RF: 0 esomeprazole magnesium [Nexium] 40 mg capsule,delayed release(DR/EC) 40 mg PO BID RF: 0 hyoscyamine sulfate 0.125 mg tablet,disintegrating 0.125 mg PO ONCE PRN (Reason: dyspepsia) Qty: 10 RF: 0 alprazolam 0.25 mg tablet 0.25 mg PO DAILY RF: 0 cyanocobalamin (vitamin B-12) [Vitamin B-12] 1,000 mcg tablet 1,000 mcg PO DAILY RF: 0 multivitamin tablet 1 tab PO DAILY Qty: 30 RF: 0 trazodone 50 mg tablet 50 mg PO BEDTIME PRN (Reason: insomnia) Qty: 30 RF: 0 calcium carbonate 500 mg calcium (1,250 mg) capsule 500 mg PO BID Qty: 60 RF: 0 niacin 50 mg tablet 50 mg PO BID Qty: 60 RF: 0 arginine (L-arginine) 500 mg capsule 500 mg PO .QHS Qty: 30 RF: 0 cholecalciferol (vitamin D3) 400 unit capsule 400 unit PO DAILY Qty: 30 RF: 0 ezetimibe 10 mg tablet 5 mg PO DAILY Qty: 30 RF: 0 FISH OIL 1,200 mg 1,200 mg PO .QD Qty: 30 RF: 0 fluticasone 50 mcg/actuation spray,suspension 1 spray Intranasal DAILY PRN (Reason: Allergy Symptoms) RF: 0 nefazodone 250 mg tablet 500 mg PO BEDTIME RF: 0 colesevelam [WelChol] 625 mg tablet 2 tab PO BID RF: 0 warfarin 5 mg tablet 1 dose PO DIRECTED RF: 0 lidocaine [Lidoderm] 5 % adhesive patch,medicated 2 patch TOP DAILY PRN (Reason: knee pain/swelling) Qty: 30 RF: 0 Referrals: Evita Jarvis DO [Primary Care Provider] - <Priscilla Snider DO - Last Filed: 04/30/18 07:10> Cosign ED Attending Cosignature Attestation: I was immediately available in the department for consultation. This documentation has been reviewed and I agree with assessment and plan. Supervised by Priscilla Snider DO
[2018-04-26 16:10] VITALS: BP 148/77; PULSE 56; RESP 16; O2SAT 100
--- NOTE | 2018-04-26 16:23 | ED_ITS ---
HPI - Extremity Problem <CLAUDIO Holland - Last Filed: 04/26/18 21:58> General Chief complaint: Extremity Problem,Nontraumatic Stated complaint: left leg behind knee,pain, thinks blood clot Time Seen by Provider: 04/26/18 15:32 Source: patient Mode of arrival: ambulatory Limitations: no limitations History of Present Illness HPI Narrative: 83-year-old female with history of a DVT and is a nonsmoker here for complaint of a swelling and discomfort to her left knee. She reports she has had swelling to the left knee since she had a fall 1 month ago. She slipped on the floor causing her to land on her and knee. She reports that she has had pain and swelling to the knee since this timeframe. She was seen in the emergency room for this and x-ray was negative for fracture. She was put in a knee immobilizer for support and comfort. She reports she has not been using the knee immobilizer over the past couple of weeks. She denies any new trauma to the knee. She states she has had a history of DVT and she is concerned for a blood clot. She is currently on blood thinners. No other concerns or complaints at this timeframe. She is ambulatory into the emergency room. Complaint: extremity swelling Related Data Home Medications Medication Instructions Recorded Confirmed melatonin 3 mg PO HS #0 06/23/16 03/31/18 alprazolam 0.25 mg tablet 0.25 mg PO DAILY 08/20/17 04/26/18 cyanocobalamin (vit B-12) 1,000 1,000 mcg PO DAILY 08/20/17 03/31/18 mcg tablet esomeprazole magnesium 40 mg 40 mg PO BID cap 12/28/17 04/26/18 capsule,delayed release colesevelam [WelChol] 2 tab PO BID 01/20/18 04/26/18 fluticasone 1 spray INTRANASAL DAILY PRN 01/20/18 03/31/18 nefazodone 500 mg PO BEDTIME 01/20/18 04/26/18 warfarin 1 dose PO DIRECTED 01/20/18 04/26/18 Previous Rx's Medication Instructions Recorded hyoscyamine 0.125 mg 0.125 mg PO ONCE PRN #10 tab 08/20/17 disintegrating tablet FISH OIL 1,200 mg PO .QD #30 08/28/17 arginine (L-arginine) 500 mg 500 mg PO .QHS #30 cap 08/28/17 capsule calcium carbonate 500 mg calcium 500 mg PO BID #60 cap 08/28/17 (1,250 mg) capsule cholecalciferol (vitamin D3) 400 400 unit PO DAILY #30 cap 08/28/17 unit capsule ezetimibe 10 mg tablet 5 mg PO DAILY #30 tab 08/28/17 multivitamin tablet 1 tab PO DAILY #30 tab 08/28/17 niacin 50 mg tablet 50 mg PO BID #60 tab 08/28/17 trazodone 50 mg tablet 50 mg PO BEDTIME PRN #30 tab 08/28/17 lidocaine [Lidoderm] 2 patch TOP DAILY PRN #30 each 03/22/18 Allergies Allergy/AdvReac Type Severity Reaction Status Date / Time Sulfa (Sulfonamide Allergy Severe TROUBLE Verified 03/31/18 09:53 Antibiotics) BREATHING [SULFA (SULFONAMIDE ANTIBIOTICS)] morphine [MORPHINE] Allergy Unknown Verified 03/31/18 09:53 Penicillins [PENICILLINS] Allergy Unknown Verified 03/31/18 09:53 Review of Systems <CLAUDIO Holland - Last Filed: 04/26/18 21:58> Constitutional Denies chills, Denies fever(s), Denies lethargy and Denies weakness Eyes Denies change in vision, Denies eye discharge, Denies irritation and Denies loss of vision ENT Ears, Nose, Mouth, and Throat: Denies change in voice, Denies neck pain, Denies sore throat and Denies throat swelling Cardiovascular Denies chest pain, Denies irregular heart rhythm, Denies lightheadedness, Denies palpitations and Denies orthopnea Respiratory Denies wheezing Musculoskeletal Denies neck pain Comments: Left knee swelling and pain Integumentary/Breasts Denies pruritus, Denies erythema, Denies rash and Denies wounds Neurologic Denies confusion, Denies loss of vision and Denies weakness Psychiatric Denies anxiety, Denies confusion, Denies depression, Denies homicidal ideation and Denies suicidal ideation Endocrine Denies palpitations Allergic/Immunologic Denies urticaria, Denies throat swelling and Denies wheezing PFSH <LCAUDIO Holland - Last Filed: 04/26/18 21:58> Medical History Tubular adenoma of colon (Resolved ~04/2016) Insomnia (Chronic) Carpal tunnel syndrome, right (Chronic 2014) Left leg DVT (Resolved 1994) 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) Thyroid nodule (Chronic 05/24/15) Gastroesophageal reflux disease (Resolved 1997) Asymptomatic carotid artery stenosis (Chronic 05/25/15) Hyperlipidemia (Chronic 01/08/15) Lactose intolerance in adult (Chronic 10/20/16) 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) Anxiety (Chronic) Asthma (Chronic) Depression (Chronic) Eczema (Chronic) Hayfever (Chronic) Peptic ulcer disease (Chronic 1982) Plantar warts (Chronic 1951) Whiplash injury (Chronic) Anemia (Resolved) BCC (basal cell carcinoma of skin) (Resolved 2010) Cataract (Resolved) Chicken pox (Resolved) Colon polyps (Resolved 1991) Fibroids (Resolved 1994) Measles (Resolved) Painful menstrual periods (Resolved) Surgical History Anesthesia (Resolved) History of fundoplication (Resolved 2000) History of phacoemulsification of cataract of left eye with intraocular lens implantation (Resolved 04/12/14) History of phacoemulsification of cataract of right eye with intraocular lens implantation (Resolved 03/22/14) History of tonsillectomy (Resolved ~194) Status post appendectomy (Resolved) Status post cholecystectomy (Resolved) Status post hysterectomy (Resolved 1995) Status post knee surgery (Resolved 1994) History of cataract removal with insertion of prosthetic lens (03/22/14) History of cataract removal with insertion of prosthetic lens (04/12/14) Family History Son Age: 58 CAD (coronary artery disease) Heart attack Son Age: 53 Prostate cancer Father Heart disease Cardiac aneurysm Sister Age: 77 Malignant neoplasm of female breast, unspecified laterality, unspecified site of breast Brother No problems noted. Son No problems noted. Grandfather Heart attack Grandmother Cancer Mother Ovarian cancer Social History Smoking Status: Never smoker Social History Smoking Status: Never smoker Exam <CLAUDIO Holland - Last Filed: 04/26/18 21:58> Initial Vital Signs Initial Vital Signs: Vital Signs Temperature 97.0 F L 04/26/18 14:09 Pulse Rate 63 04/26/18 14:09 Respiratory Rate 18 04/26/18 14:09 Blood Pressure 131/69 04/26/18 14:09 Pulse Oximetry 99 04/26/18 14:09 Const General: cooperative and well developed Nutritional Appearance: well nourished Orientation: alert, awake, oriented x3 and not confused HENNJ Mouth: oral mucosae normal and moist mucous membranes Eyes Conjunctivae: conjunctivae normal Sclera: sclerae normal Pupils: PERRL EOM: EOM intact bilaterally Cardio Rate: regular rate Rhythm: regular rhythm Heart Sounds: no click, no gallops, no murmurs and no rubs Pulses: normal peripheral pulses Neuro General: alert, oriented x3, gait normal and no focal motor deficits Speech: speech normal Extrem Other: Slight swelling to the medial aspect of the right knee. No ecchymosis. No open lesions. Full range of motion to the right knee. Distal sensation is intact. Distal pulses are intact. No signs of trauma. <Priscilla Snider DO - Last Filed: 04/30/18 07:10> Initial Vital Signs Initial Vital Signs: Vital Signs Temperature 97.0 F L 04/26/18 14:09 Pulse Rate 63 04/26/18 14:09 Respiratory Rate 18 04/26/18 14:09 Blood Pressure 131/69 04/26/18 14:09 Pulse Oximetry 99 04/26/18 14:09 Course <CLAUDIO Holland - Last Filed: 04/26/18 21:58> Orders Ordered: ED Orders 04/26/18 14:26 US periph venous low extrem lt Stat 04/26/18 15:22 CBC [Complete Blood Count AUTO DIFF] Stat PT [Prothrombin Time INR] Stat Vital Signs - 8 hr 04/26/18 14:09 04/26/18 16:10 Temperature 97.0 F L Pulse Rate 63 56 L Respiratory Rate 18 16 Blood Pressure 131/69 Blood Pressure [Left Arm] 148/77 H Pulse Oximetry 99 100 <Priscilla Snider DO - Last Filed: 04/30/18 07:10> Orders Ordered: ED Orders 04/26/18 14:26 US periph venous low extrem lt Stat 04/26/18 15:22 CBC [Complete Blood Count AUTO DIFF] Stat PT [Prothrombin Time INR] Stat Vital Signs - 8 hr 04/26/18 14:09 04/26/18 16:10 Temperature 97.0 F L Pulse Rate 63 56 L Respiratory Rate 18 16 Blood Pressure 131/69 Blood Pressure [Left Arm] 148/77 H Pulse Oximetry 99 100 MDM - Extremity (Nontraumatic) <CLAUDIO Holland - Last Filed: 04/26/18 21:58> Lab Data Result diagrams: 04/26/18 15:22 Lab Results 04/26/18 04/26/18 Range/Units 15:22 15:22 WBC 5.2 (4.5-11.0) X10^3/uL RBC 4.53 (4.0-5.2) X10^6/uL Hgb 13.7 (12.0-16.0) g/dL Hct 41.7 (36-46) % MCV 92.0 (80-100) fL MCH 30.3 (26-34) PG MCHC 33.0 (30-36) % RDW 14.1 (11.6-14.8) % Plt Count 276 (150-400) X10^3/uL Neut % (Auto) 62.8 (50-75) % Lymph % (Auto) 25.4 (25-40) % Sheridan % (Auto) 7.5 (3-14) % Eos % (Auto) 2.1 (2-4) % Baso % (Auto) 2.2 H (0-2) % Neut # (Auto) 3300 (4245-0162) /uL Lymph # (Auto) 1300 (3066-6583) /uL [place]idan # (Auto) 400 (0-900) /uL Eos # (Auto) 100 (0-450) /uL Baso # (Auto) 100 (0-100) /uL PT 30.8 H D (10.1-12.7) SECONDS INR 2.6 H (0.9-1.3) Imaging Data Venous US: Radiologist's impression: [address] [address] Ultrasound Report Signed Patient: Oxana Spencer LMR#: [id number] : 1936Acct:[id number] Age/Sex: 83 / FDate of Service: 04/26/18 Loc: ED Accession Number: [id number] Procedure: US perip venous low extrem lt Ordering Provider: Priscilla Snider D.O. PROCEDURE: US PERIPH VENOUS LOW EXTREM LT INDICATIONS: PAIN BEHIND KNEE, HX OF DVT TECHNIQUE: Real-time imaging, as well as color and pulse Doppler interrogation, were performed of the lower extremity deep veins from the inguinal ligament to the popliteal fossa. COMPARISON: [facility], , PVE UNILATERAL LEFT, 03/12/2013, 10:25. FINDINGS: The deep veins are normally compressible, and free of intraluminal thrombus. Color and pulse Doppler demonstrate normal phasic intraluminal flow. There is normal augmentation response to distal compression maneuver. In the medial aspect of the left knee in the area of swelling and recent trauma, there is a loculated subcutaneous collection measuring approximately 4.2 x 0.8 x 2.6 cm. There is no internal vascularity on color Doppler interrogation. Findings likely represent a hematoma. There is a fluid collection in the popliteal fossa measuring approximately 2.0 x 2.1 x 1.8 cm compatible with a Bryant's cyst. IMPRESSION: 1. No evidence of deep venous thrombosis in the left lower extremity. 2. Subcutaneous fluid collection medially in the knee likely represents a hematoma given history of trauma. 3. Fluid collection in the popliteal fossa compatible with a Bryant's cyst. Dictated by: Sudeep Ricks M.D. on 04/26/2018 at 15:11 Approved by: Sudeep Ricks M.D. on 04/26/2018 at 15:13 [facility] Narrative Medical decision making narrative: CBC was obtained was unremarkable. INR was 2.6 today. ultrasound of the left lower extremity was obtained was negative for any DVT. Ultrasound does show hematoma to the medial aspect of the left knee and also a signs of a Bryant cyst. Due to length of symptoms will have patient follow up with primary care provider for discussion of MRI of the left knee for further evaluation. Patient instructed to use her knee immobilizer for comfort and support. Use [id number] Tylenol as needed for any discomfort. Elevation help with any swelling. For any worsening symptoms return emergency room. <Priscilla Snider DO - Last Filed: 04/30/18 07:10> Lab Data Lab Results 04/26/18 04/26/18 Range/Units 15:22 15:22 WBC 5.2 (4.5-11.0) X10^3/uL RBC 4.53 (4.0-5.2) X10^6/uL Hgb 13.7 (12.0-16.0) g/dL Hct 41.7 (36-46) % MCV 92.0 (80-100) fL MCH 30.3 (26-34) PG MCHC 33.0 (30-36) % RDW 14.1 (11.6-14.8) % Plt Count 276 (150-400) X10^3/uL Neut % (Auto) 62.8 (50-75) % Lymph % (Auto) 25.4 (25-40) % Sheridan % (Auto) 7.5 (3-14) % Eos % (Auto) 2.1 (2-4) % Baso % (Auto) 2.2 H (0-2) % Neut # (Auto) 3300 (7140-1811) /uL Lymph # (Auto) 1300 (3064-0978) /uL Sheridan # (Auto) 400 (0-900) /uL Eos # (Auto) 100 (0-450) /uL Baso # (Auto) 100 (0-100) /uL PT 30.8 H D (10.1-12.7) SECONDS INR 2.6 H (0.9-1.3) Discharge Plan Departure Patient Disposition: Home Clinical Impression: Traumatic hematoma of left knee Qualifiers: Encounter type: initial encounter Qualified Code(s): S80.02XA - Contusion of left knee, initial encounter Discharge Date/Time: 04/26/18 16:29 Interventions: ED Discharge Assessment Last Done: 04/26/18 16:26 Instructions: DI for Knee Effusion Activity Restrictions/Additional Instructions: Ultrasound of the left lower extremity was obtained was negative for any blood clots. Signs and symptoms presents as swelling is secondary to a initial injury of the left knee 1 month ago. Due to the amount of time since injury and still had painful and swelling recommend following up with primary care provider and have discussion but obtain MRI for further evaluation. Use knee brace for comfort and support. Elevation help with any swelling. Use [id number] Tylenol as needed for any discomfort. For any worsening symptoms return to the emergency room. Prescriptions: No Action melatonin 3 MG tablet 3 mg PO HS Qty: 0 RF: 0 esomeprazole magnesium [Nexium] 40 mg capsule,delayed release(DR/EC) 40 mg PO BID RF: 0 hyoscyamine sulfate 0.125 mg tablet,disintegrating 0.125 mg PO ONCE PRN (Reason: dyspepsia) Qty: 10 RF: 0 alprazolam 0.25 mg tablet 0.25 mg PO DAILY RF: 0 cyanocobalamin (vitamin B-12) [Vitamin B-12] 1,000 mcg tablet 1,000 mcg PO DAILY RF: 0 multivitamin tablet 1 tab PO DAILY Qty: 30 RF: 0 trazodone 50 mg tablet 50 mg PO BEDTIME PRN (Reason: insomnia) Qty: 30 RF: 0 calcium carbonate 500 mg calcium (1,250 mg) capsule 500 mg PO BID Qty: 60 RF: 0 niacin 50 mg tablet 50 mg PO BID Qty: 60 RF: 0 arginine (L-arginine) 500 mg capsule 500 mg PO .QHS Qty: 30 RF: 0 cholecalciferol (vitamin D3) 400 unit capsule 400 unit PO DAILY Qty: 30 RF: 0 ezetimibe 10 mg tablet 5 mg PO DAILY Qty: 30 RF: 0 FISH OIL 1,200 mg 1,200 mg PO .QD Qty: 30 RF: 0 fluticasone 50 mcg/actuation spray,suspension 1 spray Intranasal DAILY PRN (Reason: Allergy Symptoms) RF: 0 nefazodone 250 mg tablet 500 mg PO BEDTIME RF: 0 colesevelam [WelChol] 625 mg tablet 2 tab PO BID RF: 0 warfarin 5 mg tablet 1 dose PO DIRECTED RF: 0 lidocaine [Lidoderm] 5 % adhesive patch,medicated 2 patch TOP DAILY PRN (Reason: knee pain/swelling) Qty: 30 RF: 0 Referrals: Evita Jarvis DO [Primary Care Provider] - <Priscilla Snider DO - Last Filed: 04/30/18 07:10> Cosign ED Attending Cosignature Attestation: I was immediately available in the department for consultation. This documentation has been reviewed and I agree with assessment and plan. Supervised by Priscilla Snider DO
== END 2018-04-26 16:29 | disposition home or self-care (01) ==
PROVIDERS: Emergency Medicine; Emergency Provider Nurse Practitioner Family; Family Provider Family Medicine; PCP Family Medicine
DX: S80.02XA Contusion of left knee, initial encounter (principal)
CPT/HCPCS: 36415; 85025; 85610; 93971; 99282; 99284

== ENCOUNTER → 2018-05-07 16:26 | Outpatient (CLI) | payer MEDICARE, OTHER, SELFPAY ==
--- NOTE | 2018-05-07 16:28 | DI.MRI.S_ITS ---
PROCEDURE: MR KNEE LT WO CON INDICATIONS: Left knee pain and swelling TECHNIQUE: Noncontrast sagittal PD fast spin echo and T2 fast spin echo with fat saturation, sagittal 3-D FLASH with fat saturation; coronal T1 spin echo and PD fast spin echo with fat saturation, and axial PD fast spin echo with fat saturation through the knee. COMPARISON: None. FINDINGS: Image quality: Excellent. Menisci: There is amorphous and linear high signal intensity within the medial meniscal body and posterior horn, demonstrating inferior articular surface extension, indicating complex tearing. There is linear oblique high T2 signal intensity traversing the anterior horn lateral meniscus, demonstrating inferior articular surface extension, indicating oblique tearing. There is detachment of the anterior and posterior horns of the lateral meniscus. Cruciate ligaments: The anterior and posterior cruciate ligaments appear intact. Medial structures: The medial collateral ligament demonstrates high-grade partial-thickness tearing within its mid and superior aspects. Visualized portions of the pes anserinus tendons appear normal. No abnormal bursal fluid. Lateral structures: The lateral collateral ligament, long and short heads of the biceps femoris tendon appear intact. The popliteus tendon appears normal. Iliotibial band appears normal. Anterior structures: The quadriceps and patellar tendons appear intact. Patellar alignment is normal. No femoral trochlear dysplasia or ventral trochlear prominence. No edema in the infrapatellar fat pad. Bones and cartilage: No bone marrow contusions or fractures. There is moderate diffuse articular cartilage loss overlying the weightbearing aspects of the medial femoral condyle and medial tibial plateau. Moderate diffuse articular cartilage loss overlies the weightbearing aspect of lateral femoral condyle and lateral tibial plateau. Joint space: There is a small knee joint effusion and a small Bryant's cyst. Normal appearing synovial plicae are incidentally noted. IMPRESSION: 1. Medial and lateral meniscal tearing. 2. Partial-thickness medial collateral ligament tear. 3. Knee joint effusion and Bryant's cyst. Dictated by: Moira Willis M.D. on 05/10/2018 at 8:53 Approved by: Moira Willis M.D. on 05/10/2018 at 8:57
== END ==
PROVIDERS: Family Provider Family Medicine; PCP Family Medicine; Visit Provider Family Medicine
DX: S83.232A Complex tear of medial meniscus, current injury, left knee, initial encounter (principal); S83.282A Other tear of lateral meniscus, current injury, left knee, initial encounter; S83.411A Sprain of medial collateral ligament of right knee, initial encounter; M25.562 Pain in left knee; M71.22 Synovial cyst of popliteal space [Baker], left knee; M25.462 Effusion, left knee
CPT/HCPCS: 73721

== ENCOUNTER 2018-05-11 10:30 | Outpatient (RCR) | payer MEDICARE, OTHER, SELFPAY | END 2018-05-11 13:13 | LOC: SP 10:30 | PROVIDERS: Family Provider Family Medicine; PCP Family Medicine; Visit Provider Otolaryngology | DX: R49.0 Dysphonia (principal); R13.10 Dysphagia, unspecified | CPT/HCPCS: 92507; 92520; 92524; 92611 ==

== ENCOUNTER → 2018-05-29 09:37 | Outpatient (CLI) | payer MEDICARE, OTHER, SELFPAY | PROVIDERS: Family Provider Family Medicine; PCP Family Medicine; Visit Provider Physician Assistant | DX: N39.0 Urinary tract infection, site not specified (principal) | CPT/HCPCS: 87077; 87086; 87186 ==

== ENCOUNTER → 2018-07-22 10:56 | Outpatient (CLI) | payer MEDICARE, OTHER, SELFPAY ==
--- NOTE | 2018-07-22 | DI.MRI.S_ITS ---
PROCEDURE: MR LUMBAR SPINE WO CON INDICATIONS: LOW BACK PAIN TECHNIQUE: Noncontrast sagittal T1 spin echo and T2 fast echo, sagittal STIR, axial T1 and T2 fast spin echo through the lumbar spine. In cases with scoliosis, additional coronal T2 fast spin echo may be performed. COMPARISON: None. FINDINGS: Image quality: Excellent. Alignment and Curvature: There is normal bony alignment. Bone Marrow: Marrow is of normal overall signal. No acute vertebral body compression fractures. Spinal Cord: Conus medullaris terminates at the L1-L2 level. Visualized cord demonstrates normal signal and size. Paraspinous Soft Tissues: No paravertebral masses. L1-L2: Normal appearance. L2-L3: Broad-based posterior disc bulge and bilateral facet disease. No canal or lateral recess narrowing. No foraminal stenosis. L3-L4: Broad-based posterior disc bulge and bilateral facet arthropathy. Minimal central canal narrowing. Partial effacement of the lateral recesses although bilaterally symmetric appearance. No definite foraminal stenosis L4-L5: Broad-based posterior disc bulge bilateral facet arthropathy. Minimal central canal narrowing. Mild partial effacement of both lateral recesses although symmetric appearance. Mild bilateral foraminal narrowing L5-S1: Normal appearance. Broad-based posterior disc bulge and bilateral facet arthropathy. No central canal narrowing. Lateral recesses appear patent. Minimal bilateral foraminal narrowing IMPRESSION: No high-grade canal or foraminal stenosis. Mild lower lumbar degenerative disc disease and facet arthropathy as above. Dictated by: Allen Ling M.D. on 07/22/2018 at 13:53 Approved by: Allen Ling M.D. on 07/22/2018 at 13:59
== END ==
PROVIDERS: Family Provider Family Medicine; PCP Family Medicine; Visit Provider Physical Medicine & Rehabilitation Pain Medicine
DX: M54.5 Low back pain (principal); M51.36 Other intervertebral disc degeneration, lumbar region; M51.37 Other intervertebral disc degeneration, lumbosacral region; M47.816 Spondylosis without myelopathy or radiculopathy, lumbar region; M47.817 Spondylosis without myelopathy or radiculopathy, lumbosacral region
CPT/HCPCS: 72148

== ENCOUNTER → 2018-08-04 12:28 | Outpatient (CLI) | payer MEDICARE, OTHER, SELFPAY ==
--- NOTE | 2018-08-04 12:30 | DI.US.S_ITS ---
PROCEDURE: US THYROID INDICATIONS: NODULE TECHNIQUE: Real-time scanning was performed of the thyroid gland, with image documentation. COMPARISON: [facility], US, THYROID, 07/08/2017, 13:16. FINDINGS: Right: Thyroid lobe measures 4.6 x 1.4 x 1.5 cm, and is homogeneous in echotexture. 3 mm colloid cyst. Left: Thyroid lobe measures 4.6 x 1.4 x 1.2 cm, and is homogenous in echotexture. Isthmus: 3.0 mm thick. Nodule number: 1 Location: Fragment Size: Unchanged 1.5 x 0.7 cm. Composition: Solid Echogenicity: Hypoechoic Shape: wider than tall. Margins: Smooth Echogenic foci: None Total points: 4 ACR TI-RADS category: Moderately suspicious IMPRESSION: Stable appearance of left thyroid nodule. Recommend continued followup ultrasound as detailed below. ACR TI-RADS definitions and recommendations: TI-RADS 1 (benign): 0 points. FNA not needed. TI-RADS 2 (not suspicious): 2 points. FNA not needed. TI-RADS 3 (mildly suspicious): 3 points. * FNA if 2.5 cm or larger, follow up if 1.5 cm or larger (at 1, 3, and 5 years). TI-RADS 4 (moderately suspicious): 4-6 points. * FNA if 1.5 cm or larger, follow up if 1 cm or larger (at 1, 2, 3, and 5 years). TI-RADS 5 (highly suspicious): 7 points or more. * FNA if 1 cm or larger, follow up if 0.5 cm or larger (every year for 5 years). Dictated by: Domenico SHIN Interpreted: Raimundo Vasquez MD on 08/04/2018 at 14:32 Approved by: Raimundo Vasquez M.D. on 08/04/2018 at 14:47
--- NOTE | 2018-08-04 12:30 | DI.US.S_ITS ---
PROCEDURE: US CAROTID DOPPLER BI INDICATIONS: STENOSIS TECHNIQUE: Color and pulse Doppler interrogation was performed of both carotid systems, with image documentation and velocity measurements. COMPARISON: [facility], , CAROTID ARTERY DOPPLER BILAT, 07/08/2017, 13:08. FINDINGS: Stenosis calculations are based on SRU (Society of Radiologists in Ultrasound) criteria. Right side: Brachial blood pressure: 116/72 mm Hg. Common carotid artery peak systolic velocity: 73 cm/sec. Internal carotid artery peak systolic velocity: 75 cm/sec. Internal carotid artery end diastolic velocity: 26 cm/sec. External carotid artery peak systolic velocity: 75 cm/sec. ICA/CCA peak systolic ratio: 1.0. [place] scale imaging description: Minimal scattered plaque. Percent internal carotid artery stenosis: Less than 50%. Vertebral artery: Flow direction is antegrade. Left side: Brachial blood pressure: 114/73 mm Hg. Common carotid artery peak systolic velocity: 102 cm/sec. Internal carotid artery peak systolic velocity: 70 cm/sec. Internal carotid artery end diastolic velocity: 24 cm/sec. External carotid artery peak systolic velocity: 40 cm/sec. ICA/CCA peak systolic ratio: 0.7. [place] scale imaging description: Minimal scattered plaque. Percent internal carotid artery stenosis: Less than 50%. Vertebral artery: Flow direction is antegrade. IMPRESSION: Stable less than 50% bilateral internal carotid artery stenosis. Dictated by: Domenico Heaton [facility] Interpreted: Raimundo Vasquez MD on 08/04/2018 at 14:34 Approved by: Raimundo Vasquez M.D. on 08/04/2018 at 14:47
== END ==
PROVIDERS: Family Provider Family Medicine; PCP Family Medicine; Visit Provider Family Medicine
DX: E04.1 Nontoxic single thyroid nodule (principal); I65.23 Occlusion and stenosis of bilateral carotid arteries
CPT/HCPCS: 76536; 93880

== ENCOUNTER 2018-11-17 19:45 | Emergency (ER) | payer MEDICARE, OTHER, SELFPAY ==
[2018-11-17 19:53] VITALS: BP 157/77; PULSE 60; RESP 16; TEMP 36.6; O2SAT 99
[2018-11-17 20:00] VITALS: BP 158/84; PULSE 60; PULSE 61; RESP 15; RESP 18; O2SAT 98; O2SAT 99
--- NOTE | 2018-11-17 20:02 | ED.CHESTPAIN ---
HPI - Chest Pain General Chief Complaint: Chest Pain Stated Complaint: states light chest pain from left to right side Time Seen by Provider: 11/17/18 19:58 Source: patient Mode of arrival: ambulatory Limitations: no limitations History of Present Illness HPI narrative: 83-year-old female with history of DVT on Coumadin and angina presents with a chief complaint of a vague left-sided chest pain that moves to the right without any provocation, palliation. She states this discomfort is there with waxing and waning intensity and has been for many weeks. She denies associated symptoms such as dizziness, weakness or lightheadedness. She denies any shortness of breath nor nausea or vomiting. She frequently is at the gym and uses the treadmill and denies any change in her symptoms with exertion. She denies any injury, recent travel or history of the same MD complaint: chest pain Onset (ago): week(s) Duration: intermittent Pain location: left chest and right chest Severity: moderate Quality: aching Pain radiation: none Relieving factors: nothing Exacerbating factors: nothing Treatments prior to arrival chest pain: none Related Data Home Medications Medication Instructions Recorded Confirmed melatonin 3 mg PO HS #0 06/23/16 05/31/18 alprazolam 0.25 mg tablet 0.25 mg PO DAILY 08/20/17 05/31/18 cyanocobalamin (vitamin B-12) 1,000 mcg PO DAILY 08/20/17 05/31/18 1,000 mcg tablet esomeprazole magnesium 40 mg 40 mg PO BID cap 12/28/17 05/31/18 capsule,delayed release colesevelam [WelChol] 2 tab PO BID 01/20/18 05/31/18 nefazodone 500 mg PO BEDTIME 01/20/18 05/31/18 Previous Rx's Medication Instructions Recorded hyoscyamine sulfate 0.125 mg 0.125 mg PO ONCE PRN #10 tab 08/20/17 disintegrating tablet FISH OIL 1,200 mg PO .QD #30 08/28/17 arginine (L-arginine) 500 mg 500 mg PO .QHS #30 cap 08/28/17 capsule calcium carbonate 500 mg calcium 500 mg PO BID #60 cap 08/28/17 (1,250 mg) capsule cholecalciferol (vitamin D3) 400 400 unit PO DAILY #30 cap 08/28/17 unit capsule multivitamin 1 tab PO DAILY #30 tab 08/28/17 niacin 50 mg tablet 50 mg PO BID #60 tab 08/28/17 trazodone 50 mg tablet 50 mg PO BEDTIME PRN #30 tab 08/28/17 warfarin 5 mg tablet 5 mg PO DIRECTED #90 tab 10/11/18 Allergies Allergy/AdvReac Type Severity Reaction Status Date / Time Sulfa (Sulfonamide Allergy Severe TROUBLE Verified 05/31/18 13:01 Antibiotics) BREATHING [SULFA (SULFONAMIDE ANTIBIOTICS)] morphine [MORPHINE] Allergy Unknown Verified 05/31/18 13:01 Penicillins [PENICILLINS] Allergy Unknown Verified 05/31/18 13:01 Review of Systems Constitutional Constitutional: Denies chills, Denies fatigue, Denies fever(s), Denies frequent falls, Denies lethargy and Denies weakness Eyes Eyes: Denies change in vision, Denies eye discharge, Denies irritation and Denies loss of vision ENT Ears, Nose, Mouth, and Throat: Denies change in voice, Denies dizziness, Denies neck pain, Denies sore throat and Denies throat swelling Cardiovascular Cardiovascular: Reports chest pain, Denies irregular heart rhythm, Denies lightheadedness, Denies palpitations, Denies dyspnea, Denies dyspnea on exertion and Denies orthopnea Respiratory Respiratory: Denies cough, Denies dyspnea, Denies dyspnea on exertion and Denies wheezing Gastrointestinal Gastrointestinal: Denies abdominal pain, Denies change in bowel habits, Denies diarrhea, Denies nausea and Denies vomiting Genitourinary Genitourinary: Denies hematuria, Denies flank pain, Denies urinary incontinence and Denies urinary urgency Musculoskeletal Musculoskeletal: Denies back pain, Denies muscle weakness, Denies neck pain, Denies numbness and Denies tingling Integumentary/Breasts Skin/Breast: Denies pruritus, Denies erythema, Denies rash and Denies wounds Neurologic Neurologic: Denies behavioral changes, Denies confusion, Denies dizziness, Denies frequent falls, Denies loss of vision, Denies numbness, Denies tingling and Denies weakness Psychiatric Psychiatric: Denies anxiety, Denies behavioral changes, Denies confusion, Denies depression, Denies homicidal ideation and Denies suicidal ideation Endocrine Endocrine: Denies fatigue, Denies flushing and Denies palpitations Hematologic/Lymphatic Hematologic/Lymphatic: Denies easy bruising Allergic/Immunologic Allergic/Immunologic: Denies urticaria, Denies throat swelling and Denies wheezing [facility] Medical History Anemia (Resolved) Anxiety (Chronic) Asthma (Chronic) Asymptomatic carotid artery stenosis (Chronic 05/25/15) BCC (basal cell carcinoma of skin) (Resolved 2010) Carpal tunnel syndrome, right (Chronic 2014) Cataract (Resolved) Chicken pox (Resolved) Colon polyps (Resolved 1991) Depression (Chronic) Eczema (Chronic) Fibroids (Resolved 1994) Gastroesophageal reflux disease (Resolved 1997) Hayfever (Chronic) Hyperlipidemia (Chronic 01/08/15) Insomnia (Chronic) Lactose intolerance in adult (Chronic 10/20/16) Left leg DVT (Resolved 1994) group home 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) Measles (Resolved) Painful menstrual periods (Resolved) Peptic ulcer disease (Chronic 1982) Plantar warts (Chronic 1951) 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) Thyroid nodule (Chronic 05/24/15) Tubular adenoma of colon (Resolved ~04/2016) Whiplash injury (Chronic) Surgical History Anesthesia (Resolved) History of cataract removal with insertion of prosthetic lens (03/22/14) History of cataract removal with insertion of prosthetic lens (04/12/14) History of fundoplication (Resolved 2000) History of phacoemulsification of cataract of left eye with intraocular lens implantation (Resolved 04/12/14) History of phacoemulsification of cataract of right eye with intraocular lens implantation (Resolved 03/22/14) History of tonsillectomy (Resolved ~194) Status post appendectomy (Resolved) Status post cholecystectomy (Resolved) Status post hysterectomy (Resolved 1995) Status post knee surgery (Resolved 1994) Family History Son Age: 58 CAD (coronary artery disease) Heart attack Son Age: 53 Prostate cancer Father Heart disease Cardiac aneurysm Sister Age: 77 Malignant neoplasm of female breast, unspecified laterality, unspecified site of breast Brother No problems noted. Son No problems noted. Grandfather Heart attack Grandmother Cancer Mother Ovarian cancer Social History Smoking Status: Never smoker Family History Son Age: 58 CAD (coronary artery disease) Heart attack Son Age: 53 Prostate cancer Father Heart disease Cardiac aneurysm Sister Age: 77 Malignant neoplasm of female breast, unspecified laterality, unspecified site of breast Brother No problems noted. Son No problems noted. Grandfather Heart attack Grandmother Cancer Mother Ovarian cancer Social History Smoking Status: Never smoker Exam Narrative Exam Narrative: GENERAL: [83] year old patient appears stated age. Well-nourished, well-developed patient, in mild distress. HEAD: Atraumatic. Normocephalic. EYES: Pupils equal round and reactive. Extraocular motions intact. No scleral icterus. No injection or drainage. ENT: Nose without bleeding, purulent drainage. Throat without erythema, tonsillar hypertrophy or exudate. Airway patent. NECK: Trachea midline. Non tender CARDIOVASCULAR: Right-sided chest pain reproducible to palpation Regular rate and rhythm without murmurs, gallops, or rubs. RESPIRATORY: Clear to auscultation. Breath sounds equal bilaterally. No wheezes, rales, or rhonchi. GASTROINTESTINAL: Abdomen soft, non-tender, nondistended. EXTREMITIES: No edema or joint tenderness. BACK: Nontender without deformity or crepitance. No flank tenderness. NEURO: AOx3. SKIN: No rash or erythema of visible areas Initial Vital Signs Initial Vital Signs: Vital Signs Temperature 98 F 11/17/18 19:53 Pulse Rate 60 11/17/18 19:53 Respiratory Rate 16 11/17/18 19:53 Blood Pressure 157/77 H 11/17/18 19:53 Pulse Oximetry 99 11/17/18 19:53 Course Orders Ordered: ED Orders 11/17/18 19:59 EKG-12 Lead Stat 11/17/18 20:09 CT angio chest PE protocol Stat 11/17/18 20:10 Complete Blood Count AUTO DIFF Stat Comprehensive Metabolic Panel Stat Lipase Stat Partial Thromboplastin Time Stat Prothrombin Time INR Stat Troponin & CK Cardiac Panel Stat Discontinued Medications Sodium Chloride (Normal Saline 0.9%) 1,000 mls @ 1,000 mls/hr IV BOLUS ONE Stop: 11/17/18 22:13 Last Admin: 11/17/18 21:38 Dose: 1,000 mls/hr Documented by: GINI Vital Signs Vital signs: Vital Signs - 8 hr 11/17/18 21:45 11/17/18 22:00 11/17/18 22:30 Pulse Rate 58 L 57 L 60 Respiratory Rate 16 20 18 Blood Pressure [Left Arm] 130/80 128/72 128/72 Pulse Oximetry 97 97 96 MDM - Chest Pain Lab Data Result diagrams: 11/17/18 20:10 11/17/18 20:10 Labs: Lab Results 11/17/18 11/17/18 11/17/18 Range/Units 20:10 20:10 20:10 WBC 4.6 (4.5-11.0) X10^3/uL RBC 4.56 (4.0-5.2) X10^6/uL Hgb 14.0 (12.0-16.0) g/dL Hct 41.8 (36-46) % MCV 91.8 (80-100) fL MCH 30.8 (26-34) PG MCHC 33.5 (30-36) % RDW 13.8 (11.6-14.8) % Plt Count 269 (150-400) X10^3/uL Neut % (Auto) 54.1 (50-75) % Lymph % (Auto) 29.1 (25-40) % Posey % (Auto) 10.2 (3-14) % Eos % (Auto) 5.3 H (2-4) % Baso % (Auto) 1.3 (0-2) % Neut # (Auto) 2500 (0728-1703) /uL Lymph # (Auto) 1300 (2047-5152) /uL Posey # (Auto) 500 (0-900) /uL Eos # (Auto) 200 (0-450) /uL Baso # (Auto) 100 (0-100) /uL PT 24.6 H (10.1-12.7) SECONDS INR 2.1 H (0.9-1.3) APTT 40 H D (26.4-36.2) SECONDS Sodium 140 (137-145) mmol/L Potassium 4.2 (3.4-5.1) mmol/L Chloride 106 (98-107) mmol/L Carbon Dioxide 27 (22-32) mmol/L BUN 21 H (7-17) mg/dL Creatinine 0.90 (0.52-1.04) mg/dL Estimated GFR > 60.0 (>60) mL/min BUN/Creatinine Ratio 23.3 H (6-22) Glucose 106 (80-110) mg/dL Calcium 9.3 (8.4-10.2) mg/dL Total Bilirubin 0.9 (0.2-1.3) mg/dL AST 30 (14-36) IU/L ALT 32 (9-52) IU/L Alkaline Phosphatase 81 (38-126) U/L Total Creatine Kinase 100 (30-135) U/L CK-MB (CK-2) TNP CK-MB (CK-2) Rel Index TNP Troponin I 0.026 (0.01-0.034) ng/mL Total Protein 6.8 (6.3-8.2) g/dL Albumin 4.2 (3.5-5.0) g/dL Globulin 2.6 (1.7-4.1) g/dL Albumin/Globulin Ratio 1.6 (1.0-2.8) Lipase 91 (23-300) U/L Imaging Data CT scan - chest: Radiologist's impression: [place] [address] CT Scan Report Signed Patient: Oxana Spencer LMR#: [id number] : 8Acct:[id number] Age/Sex: 83 / FDate of Service: 11/17/18 Loc: ED Accession Number: [id number] Procedure: CT angio chest PE protocol Ordering Provider: Kyrie Valentin D.O. PROCEDURE: CT ANGIO CHEST PE PROTOCOL INDICATIONS: CP, SOB, hx DVT TECHNIQUE: After the administration of intravenous contrast, 2 mm thick sections acquired from the pulmonary apices to the posterior costophrenic angles. 3-dimensional maximum intensity projection (MIP) coronal and sagittal reformats were then acquired through the thorax. For radiation dose reduction, the following was used: automated exposure control, adjustment of mA and/or kV according to patient size. COMPARISON: [facility], CT, CT ANGIO CHEST PE PROTOCOL, 01/20/2018, 18:14. FINDINGS: Image quality: Excellent. Pulmonary arteries: Pulmonary arteries are normal in size, and demonstrate no intraluminal filling defects to suggest central pulmonary embolism. Lungs and pleura: Minimal lateral lingular atelectatic changes and minor groundglass opacity laterally at the left lower lobe and to a lesser extent at the right lung base. Mild bilateral lower lobe bronchiectasis without peribronchial thickening. No pleural effusions or pneumothorax. Mediastinum: Heart size is normal, without pericardial effusion. No mediastinal or hilar adenopathy. A retroesophageal right subclavian artery. Thoracic aorta is normal in caliber and enhancement. Esophagus is normal in caliber, and there is a small hiatal hernia. Bones and chest wall: No suspicious bony lesions. Ribs and thoracic spine appear intact throughout. Thyroid gland is normal. No axillary or supraclavicular adenopathy. Abdomen: Visualized upper abdomen demonstrates cholecystectomy changes and surgical clips in the left lobe of the liver. IMPRESSION: 1. No evidence of pulmonary embolus. 2. Minor parenchymal groundglass opacities at both lung bases may be gravitational changes versus early infection/inflammation. 3. Mild bronchiectasis suggests underlying chronic airways disease. Dictated by: Yoly Amos M.D. on 11/17/2018 at 21:41 Approved by: Yoly Amos M.D. on 11/17/2018 at 21:53 ECG Data Interpretation: EKG is normal sinus rhythm rate [ 63] and free of any signs of ischemia or ectopy. No ST segmental elevation or depression. No T wave inversions MDM Narrative Medical decision making narrative: Multiple etiologies for patient's symptoms considered including: Multiple causes of chest pain considered including HI, PE, pneumothorax, pneumonia, aortic dissection, and pleurisy. Patient reports no radiation, no diaphoresis, no provocation with exertion, and no vomiting Patient's symptoms improved or duration of stay with above-stated therapies. Findings and discharge diagnosis discussed with patient/family followed by verbalization of understanding Return precautions discussed with patient/family whom verbalize understanding. Discharge Plan Departure Patient Disposition: Home Clinical Impression: Chest pain, atypical Discharge Date/Time: 11/17/18 23:07 Instructions: DI for Atypical Chest Pain Activity Restrictions/Additional Instructions: *You have been diagnosed with [atypical chest pain. Heart attack, blood clot and other diagnoses considered but thought unlikely given the results of today's tests and physical exam] *What to do: * continue to take medications as directed *Follow up with your primary care provider in 2-3 days, call for an appointment. Let them know you were seen in the Emergency Department and that we ask that you be seen in follow up *Return to ER if you should have any new, worsening or concerning symptoms Prescriptions: No Action melatonin 3 MG tablet 3 mg PO HS Qty: 0 RF: 0 esomeprazole magnesium [Nexium] 40 mg capsule,delayed release(DR/EC) 40 mg PO BID RF: 0 hyoscyamine sulfate 0.125 mg tablet,disintegrating 0.125 mg PO ONCE PRN (Reason: dyspepsia) Qty: 10 RF: 0 alprazolam 0.25 mg tablet 0.25 mg PO DAILY RF: 0 cyanocobalamin (vitamin B-12) [Vitamin B-12] 1,000 mcg tablet 1,000 mcg PO DAILY RF: 0 multivitamin tablet 1 tab PO DAILY Qty: 30 RF: 0 trazodone 50 mg tablet 50 mg PO BEDTIME PRN (Reason: insomnia) Qty: 30 RF: 0 calcium carbonate 500 mg calcium (1,250 mg) capsule 500 mg PO BID Qty: 60 RF: 0 niacin 50 mg tablet 50 mg PO BID Qty: 60 RF: 0 arginine (L-arginine) 500 mg capsule 500 mg PO .QHS Qty: 30 RF: 0 cholecalciferol (vitamin D3) 400 unit capsule 400 unit PO DAILY Qty: 30 RF: 0 FISH OIL 1,200 mg 1,200 mg PO .QD Qty: 30 RF: 0 warfarin 5 mg tablet 5 mg PO DIRECTED Qty: 90 RF: 3 nefazodone 250 mg tablet 500 mg PO BEDTIME RF: 0 colesevelam [WelChol] 625 mg tablet 2 tab PO BID RF: 0 Referrals: Evita Jarvis DO [Primary Care Provider] -
--- NOTE | 2018-11-17 20:09 | DI.CT.S_ITS ---
PROCEDURE: CT ANGIO CHEST PE PROTOCOL INDICATIONS: CP, SOB, hx DVT TECHNIQUE: After the administration of intravenous contrast, 2 mm thick sections acquired from the pulmonary apices to the posterior costophrenic angles. 3-dimensional maximum intensity projection (MIP) coronal and sagittal reformats were then acquired through the thorax. For radiation dose reduction, the following was used: automated exposure control, adjustment of mA and/or kV according to patient size. COMPARISON: [facility], CT, CT ANGIO CHEST PE PROTOCOL, 01/20/2018, 18:14. FINDINGS: Image quality: Excellent. Pulmonary arteries: Pulmonary arteries are normal in size, and demonstrate no intraluminal filling defects to suggest central pulmonary embolism. Lungs and pleura: Minimal lateral lingular atelectatic changes and minor groundglass opacity laterally at the left lower lobe and to a lesser extent at the right lung base. Mild bilateral lower lobe bronchiectasis without peribronchial thickening. No pleural effusions or pneumothorax. Mediastinum: Heart size is normal, without pericardial effusion. No mediastinal or hilar adenopathy. A retroesophageal right subclavian artery. Thoracic aorta is normal in caliber and enhancement. Esophagus is normal in caliber, and there is a small hiatal hernia. Bones and chest wall: No suspicious bony lesions. Ribs and thoracic spine appear intact throughout. Thyroid gland is normal. No axillary or supraclavicular adenopathy. Abdomen: Visualized upper abdomen demonstrates cholecystectomy changes and surgical clips in the left lobe of the liver. IMPRESSION: 1. No evidence of pulmonary embolus. 2. Minor parenchymal groundglass opacities at both lung bases may be gravitational changes versus early infection/inflammation. 3. Mild bronchiectasis suggests underlying chronic airways disease. Dictated by: Yoly Amos M.D. on 11/17/2018 at 21:41 Approved by: Yoly Amos M.D. on 11/17/2018 at 21:53
[2018-11-17 20:19] LABS: Add Manual Diff / Slide Review NO; Basophils Absolute Auto 100 /uL (0-100); Basophils Percent Auto 1.3 % (0-2); Eosinophils Absolute Auto 200 /uL (0-450); Eosinophils Percent Auto 5.3 % (2-4); Hematocrit 41.8 % (36-46); Lymphocytes Absolute Auto 1300 /uL (1100-4500); Lymphocytes Percent Auto 29.1 % (25-40); Mean Corpuscular HGB Conc 33.5 % (30-36); Mean Corpuscular Hemoglobin 30.8 PG (26-34); Mean Corpuscular Volume 91.8 fL (80-100); Monocytes Absolute Auto 500 /uL (0-900); Monocytes Percent Auto 10.2 % (3-14); Neutrophils Absolute Auto 2500 /uL (1500-7000); Neutrophils Percent Auto 54.1 % (50-75); Platelet Count 269 X10^3/uL (150-400); Red Blood Cell Count 4.56 X10^6/uL (4.0-5.2); Red Cell Distribution Width 13.8 % (11.6-14.8); White Blood Cell Count 4.6 X10^3/uL (4.5-11.0)
[2018-11-17 20:24] LABS: INR 2.1 (0.9-1.3); Prothrombin Time 24.6 SECONDS (10.1-12.7)
[2018-11-17 20:27] LABS: PTT Partial Thromboplastin Tim 40 SECONDS (26.4-36.2)
[2018-11-17 20:29] LABS: Alanine Aminotransferase 32 IU/L (9-52); Albumin 4.2 g/dL (3.5-5.0); Albumin Globulin Ratio 1.6 (1.0-2.8); Alkaline Phosphatase 81 U/L (38-126); Aspartate Aminotransferase 30 IU/L (14-36); BUN Creatinine Ratio 23.3 (6-22); Bilirubin Total 0.9 mg/dL (0.2-1.3); Blood Urea Nitrogen 21 mg/dL (7-17); Calcium 9.3 mg/dL (8.4-10.2); Carbon Dioxide 27 mmol/L (22-32); Chloride 106 mmol/L (98-107); Creatine Kinase 100 U/L (30-135); Estimated Glomerular Filt Rate > 60.0 mL/min (>60); Globulin 2.6 g/dL (1.7-4.1); Glucose 106 mg/dL (80-110); HEMOLYSIS < 15 (0-50); Lipase 91 U/L (23-300); Potassium 4.2 mmol/L (3.4-5.1); Sodium 140 mmol/L (137-145); Total Protein 6.8 g/dL (6.3-8.2)
[2018-11-17 20:41] LABS: Troponin I 0.026 ng/mL (0.01-0.034)
[2018-11-17] MEDS: SODIUM CHLORIDE 0.9% 1,000 ML 1000 ML IV (21:38)
[2018-11-17 21:45] VITALS: BP 130/80; PULSE 58; RESP 16; O2SAT 97
[2018-11-17 22:00] VITALS: BP 128/72; PULSE 57; RESP 20; O2SAT 97
[2018-11-17 22:30] VITALS: BP 128/72; PULSE 60; RESP 18; O2SAT 96
--- NOTE | 2018-12-11 07:04 | PC.NURSE ---
1000 ml NS bolus stop time 2114 hrs.
== END 2018-11-17 23:07 | disposition home or self-care (01) ==
PROVIDERS: Emergency Provider Emergency Medicine; Family Provider Family Medicine; PCP Family Medicine
DX: R07.89 Other chest pain (principal); Z79.01 Long term (current) use of anticoagulants
CPT/HCPCS: 36415; 71275; 80053; 82550; 83690; 84484; 85025; 85610; 85730; 93005; 99283; 99284; Q9967

== ENCOUNTER → 2018-12-16 13:20 | Outpatient (CLI) | payer MEDICARE, OTHER, SELFPAY | PROVIDERS: Family Provider Family Medicine; PCP Family Medicine; Visit Provider Physician Assistant | DX: R30.0 Dysuria (principal) | CPT/HCPCS: 87077; 87086; 87186 ==

== ENCOUNTER → 2019-01-18 09:11 | Outpatient (CLI) | payer MEDICARE, OTHER, SELFPAY ==
[2019-01-18 10:45] LABS: Add Manual Diff / Slide Review NO; Basophils Absolute Auto 0 /uL (0-100); Basophils Percent Auto 0.9 % (0-2); Eosinophils Absolute Auto 100 /uL (0-450); Eosinophils Percent Auto 2.6 % (2-4); Hematocrit 42.3 % (36-46); Hemoglobin 13.9 g/dL (12.0-16.0); Lymphocytes Absolute Auto 1000 /uL (1100-4500); Lymphocytes Percent Auto 21.4 % (25-40); Mean Corpuscular HGB Conc 32.9 % (30-36); Mean Corpuscular Hemoglobin 30.6 PG (26-34); Mean Corpuscular Volume 92.9 fL (80-100); Monocytes Absolute Auto 400 /uL (0-900); Monocytes Percent Auto 7.4 % (3-14); Neutrophils Absolute Auto 3200 /uL (1500-7000); Neutrophils Percent Auto 67.7 % (50-75); Platelet Count 266 X10^3/uL (150-400); Red Blood Cell Count 4.55 X10^6/uL (4.0-5.2); Red Cell Distribution Width 14.9 % (11.6-14.8); White Blood Cell Count 4.7 X10^3/uL (4.5-11.0)
== END ==
PROVIDERS: Family Provider Family Medicine; PCP Family Medicine; Visit Provider Nurse Practitioner Family
DX: R23.3 Spontaneous ecchymoses (principal)
CPT/HCPCS: 36415; 85025

== ENCOUNTER → 2019-01-25 10:29 | Outpatient (CLI) | payer MEDICARE, OTHER, SELFPAY | PROVIDERS: Family Provider Family Medicine; PCP Family Medicine; Visit Provider Physician Assistant | DX: N30.01 Acute cystitis with hematuria (principal) | CPT/HCPCS: 87077; 87086; 87186 ==

== ENCOUNTER → 2019-01-31 09:20 | Outpatient (CLI) | payer MEDICARE, OTHER, SELFPAY ==
[2019-01-31 10:11] LABS: Add Manual Diff / Slide Review NO; Basophils Absolute Auto 0 /uL (0-100); Basophils Percent Auto 1.1 % (0-2); Eosinophils Absolute Auto 100 /uL (0-450); Eosinophils Percent Auto 2.3 % (2-4); Hemoglobin 14.1 g/dL (12.0-16.0); Lymphocytes Absolute Auto 900 /uL (1100-4500); Lymphocytes Percent Auto 23.5 % (25-40); Mean Corpuscular HGB Conc 33.7 % (30-36); Mean Corpuscular Hemoglobin 31.2 PG (26-34); Mean Corpuscular Volume 92.5 fL (80-100); Monocytes Absolute Auto 300 /uL (0-900); Monocytes Percent Auto 8.4 % (3-14); Neutrophils Absolute Auto 2600 /uL (1500-7000); Neutrophils Percent Auto 64.7 % (50-75); Platelet Count 287 X10^3/uL (150-400); Red Blood Cell Count 4.54 X10^6/uL (4.0-5.2); Red Cell Distribution Width 14.3 % (11.6-14.8)
[2019-01-31 10:23] LABS: Alanine Aminotransferase 23 IU/L (<35); Albumin 4.1 g/dL (3.5-5.0); Albumin Globulin Ratio 1.6 (1.0-2.8); Alkaline Phosphatase 87 U/L (38-126); Aspartate Aminotransferase 31 IU/L (14-36); BUN Creatinine Ratio 16.7 (6-22); Bilirubin Total 0.8 mg/dL (0.2-1.3); Blood Urea Nitrogen 15 mg/dL (7-17); Calcium 9.1 mg/dL (8.4-10.2); Carbon Dioxide 27 mmol/L (22-32); Chloride 108 mmol/L (98-107); Estimated Glomerular Filt Rate > 60.0 mL/min (>60); Globulin 2.5 g/dL (1.7-4.1); Glucose 82 mg/dL (80-110); HEMOLYSIS < 15 (0-50); Potassium 3.6 mmol/L (3.4-5.1); Sodium 142 mmol/L (137-145); Total Protein 6.6 g/dL (6.3-8.2)
== END ==
PROVIDERS: Family Provider Family Medicine; PCP Family Medicine; Visit Provider Dermatology
DX: D18.01 Hemangioma of skin and subcutaneous tissue (principal)
CPT/HCPCS: 36415; 80053; 85025

== ENCOUNTER → 2019-02-02 10:51 | Outpatient (CLI) | payer MEDICARE, OTHER, SELFPAY | PROVIDERS: PCP Family Medicine; Visit Provider Family Medicine | DX: N39.0 Urinary tract infection, site not specified (principal) | CPT/HCPCS: 87086 ==

== ENCOUNTER 2019-02-07 12:06 | Emergency (ER) | payer MEDICARE, OTHER, SELFPAY ==
[2019-02-07 12:16] VITALS: BP 159/73; PULSE 57; RESP 15; TEMP 36.5; O2SAT 96; BMI 23.0
--- NOTE | 2019-02-07 12:26 | DI.RAD.S_ITS ---
PROCEDURE: XR SHOULDER LT MIN 2V INDICATIONS: pain sp fall TECHNIQUE: 2 views of the shoulder were acquired. COMPARISON: None. FINDINGS: Bones: No fractures or dislocations. No suspicious bony lesions. Visualized ribs appear intact. Soft tissues: No suspicious soft tissue calcifications. IMPRESSION: No trauma found. Dictated by: Raimundo Vasquez M.D. on 02/07/2019 at 13:09 Approved by: Raimundo Vasquez M.D. on 02/07/2019 at 13:09
--- NOTE | 2019-02-07 12:26 | DI.RAD.S_ITS ---
PROCEDURE: XR ELBOW LT MIN 3V INDICATIONS: pain sp fall TECHNIQUE: 3 views of the elbow were acquired. COMPARISON: None. FINDINGS: Bones: No fractures or dislocations. No suspicious bony lesions. Soft tissues: No elbow joint effusion. No suspicious soft tissue calcifications. IMPRESSION: No trauma found. Dictated by: Raimundo Vasquez M.D. on 02/07/2019 at 13:08 Approved by: Raimundo Vasquez M.D. on 02/07/2019 at 13:09
[2019-02-07] MEDS: LIDOCAINE PATCH 1 EACH ADH..PATCH TOP (13:22)
[2019-02-07] MEDS: ACETAMINOPHEN 325 MG TABLET 650 MG PO (13:22)
--- NOTE | 2019-02-07 15:45 | ED_ITS ---
HPI - Extremity Injury (Upper) <Priscilla Talavera, PREVENTION COORDINATOR-BC - Last Filed: 02/07/19 20:01> General Chief Complaint: Extremity Injury, Upper Stated Complaint: Fell and Hurt Left Shoulder Time Seen by Provider: 02/07/19 12:14 Source: patient and family Mode of arrival: Ambulatory Limitations: no limitations History of Present Illness HPI narrative: The patient is an 83-year-old nonsmoker of DVT who presents with a chief complaint of left shoulder pain after tripping over [place]. She states she landed on her left shoulder, did not hit her head, to not hit her neck or her back. She does complain of left shoulder pain radiating down to her left elbow. She has not taken anything for pain. She is adamant that she did not hit her head. Her witnessed the fall and he states that she did not hit her head. A modified trauma was considered for this patient as she is on blood thinners, however the patient was declining a head CT and imaging of her head and neck. She is insistent that this is an isolated arm injury. Thus a modified trauma was considered, but not activated. Dr Driscoll was consulted regardig this decision. She denies any left hand or wrist pain. She denies any previous injury to the area. She states she is not to take anti-inflammatories because of her Coumadin, and she cannot take any narcotics because they cause esophageal spasm. Related Data Home Medications Medication Instructions Recorded Confirmed alprazolam 0.25 mg tablet 0.25 mg PO DAILY 08/20/17 02/07/19 cyanocobalamin (vitamin B-12) 1,000 mcg PO DAILY 08/20/17 01/25/19 1,000 mcg tablet esomeprazole magnesium 40 mg 40 mg PO BID cap 12/28/17 01/25/19 capsule,delayed release colesevelam [WelChol] 2 tab PO BID 01/20/18 02/07/19 nefazodone 500 mg PO BEDTIME 01/20/18 02/07/19 ezetimibe 5 mg PO DAILY 02/07/19 02/07/19 warfarin 5 mg PO DAILY 02/07/19 02/07/19 Previous Rx's Medication Instructions Recorded hyoscyamine sulfate 0.125 mg 0.125 mg PO ONCE PRN #10 tab 08/20/17 disintegrating tablet FISH OIL 1,200 mg PO .QD #30 08/28/17 arginine (L-arginine) 500 mg 500 mg PO .QHS #30 cap 08/28/17 capsule calcium carbonate 500 mg calcium 500 mg PO BID #60 cap 08/28/17 (1,250 mg) capsule cholecalciferol (vitamin D3) 400 400 unit PO DAILY #30 cap 08/28/17 unit capsule multivitamin 1 tab PO DAILY #30 tab 08/28/17 niacin 50 mg tablet 50 mg PO BID #60 tab 08/28/17 trazodone 50 mg tablet 50 mg PO BEDTIME PRN #30 tab 08/28/17 Allergies Allergy/AdvReac Type Severity Reaction Status Date / Time Sulfa (Sulfonamide Allergy Severe TROUBLE Verified 02/07/19 12:15 Antibiotics) BREATHING [SULFA (SULFONAMIDE ANTIBIOTICS)] morphine [MORPHINE] Allergy Unknown Verified 02/07/19 12:15 Penicillins [PENICILLINS] Allergy Unknown Verified 02/07/19 12:15 Review of Systems <BRONSON Chacon - Last Filed: 02/07/19 20:01> Review of Systems Narrative: GENERAL: Denies chills, fatigue, malaise, fever, sweats. HEENT: Denies sinus pain, ear pain, sore throat, difficulty swallowing, dizziness. RESPIRATORY: Denies dyspnea, cough, wheezing, hemoptysis, sputum. CARDIOVASCULAR: Denies chest pain, palpitations, orthopnea, edema, GASTROINTESTINAL: Denies nausea, vomiting, abdominal pain, diarrhea, constipation, melena. : Denies dysuria, frequency, incontinence, hematuria, urinary retention. MUSCULOSKELETAL: See HPI SKIN: Denies rash, skin lesions, or other NEUROLOGIC: Denies weakness, headache, numbness, change in speech, confusion, seizures, incoordination. PSYCHIATRIC: No concerning psychosocial issues. 12 point review of systems is negative except for those stated above Patient History <BRONSON Chacon - Last Filed: 02/07/19 20:01> Medical History Anemia (Resolved) Anxiety (Chronic) Asthma (Chronic) Asymptomatic carotid artery stenosis (Chronic 05/25/15) BCC (basal cell carcinoma of skin) (Resolved 2010) Bronchiectasis (Acute) Carpal tunnel syndrome, right (Chronic 2014) Cataract (Resolved) Chicken pox (Resolved) Colon polyps (Resolved 1991) Depression (Chronic) Eczema (Chronic) Fibroids (Resolved 1994) Gastroesophageal reflux disease (Resolved 1997) Hayfever (Chronic) Hiatal hernia (Acute) Hyperlipidemia (Chronic 01/08/15) Insomnia (Chronic) Lactose intolerance in adult (Chronic 10/20/16) Left leg DVT (Resolved 1994) FPC 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) Measles (Resolved) Painful menstrual periods (Resolved) Peptic ulcer disease (Chronic 1982) Plantar warts (Chronic 1951) 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) Thyroid nodule (Chronic 05/24/15) Tubular adenoma of colon (Resolved ~04/2016) Urinary tract infection (Acute) Whiplash injury (Chronic) Surgical History Anesthesia (Resolved) History of cataract removal with insertion of prosthetic lens (03/22/14) History of cataract removal with insertion of prosthetic lens (04/12/14) History of fundoplication (Resolved 2000) History of phacoemulsification of cataract of left eye with intraocular lens implantation (Resolved 04/12/14) History of phacoemulsification of cataract of right eye with intraocular lens implantation (Resolved 03/22/14) History of tonsillectomy (Resolved ~194) Status post appendectomy (Resolved) Status post cholecystectomy (Resolved) Status post hysterectomy (Resolved 1995) Status post knee surgery (Resolved 1994) Family History Son Age: 59 CAD (coronary artery disease) Heart attack Son Age: 54 Prostate cancer Father Heart disease Cardiac aneurysm Sister Age: 78 Malignant neoplasm of female breast, unspecified laterality, unspecified site of breast Brother No problems noted. Son No problems noted. Grandfather Heart attack Grandmother Cancer Mother Ovarian cancer Social History Smoking Status: Never smoker alcohol intake frequency: 0-2 drinks per day Substance Use Type: does not use Exam <BRONSON Chacon - Last Filed: 02/07/19 20:01> Narrative Exam Narrative: GENERAL: This is a well-nourished, well-developed patient, appears uncomfortable HEAD: Atraumatic. Normocephalic. No temporal or scalp tenderness. EYES: Pupils equal round and reactive. Extraocular motions intact. No scleral icterus. No injection or drainage. ENT: Nose without bleeding, purulent drainage or septal hematoma. Throat without erythema, tonsillar hypertrophy or exudate. Uvula midline. Airway patent. NECK: Trachea midline. No JVD or lymphadenopathy. Supple, nontender, no meningeal signs. CARDIOVASCULAR: Regular rate and rhythm without murmurs, gallops, or rubs. RESPIRATORY: Clear to auscultation. Breath sounds equal bilaterally. No wheezes, rales, or rhonchi. No cough. No increased respiratory effort. No accessory muscle use. GASTROINTESTINAL: Abdomen soft, non-tender, nondistended. No hepato- splenomegaly, or palpable masses. No guarding. EXTREMITIES: Diffuse pain from palpation left shoulder, down through left elbo w. Full range of motion noted left elbow. Patient unwilling to do range of motion left shoulder. Positive radial pulse left hand. No visible abnormalities bilateral upper extremities. BACK: Nontender without deformity or crepitance. No flank tenderness. No pain to CT or L-spine palpation. NEURO: AOx3. SKIN: No rash or erythema on visible skin. No ecchymosis laceration or abrasion noted left shoulder left arm. Initial Vital Signs Initial Vital Signs: Vital Signs Temperature 97.7 F 02/07/19 12:16 Pulse Rate 57 L 02/07/19 12:16 Respiratory Rate 15 02/07/19 12:16 Blood Pressure 159/73 H 02/07/19 12:16 Pulse Oximetry 96 02/07/19 12:16 <Jeanette Driscoll MD - Last Filed: 02/07/19 20:06> Initial Vital Signs Initial Vital Signs: Vital Signs Temperature 97.7 F 02/07/19 12:16 Pulse Rate 57 L 02/07/19 12:16 Respiratory Rate 15 02/07/19 12:16 Blood Pressure 159/73 H 02/07/19 12:16 Pulse Oximetry 96 02/07/19 12:16 Procedures <BRONSON Chacon - Last Filed: 02/07/19 20:01> Orthopedic Splinting/Casting Injury #1: Side: left Upper Extremity Injury Location: shoulder Upper Extremity Immobilizer: sling/shoulder immobilizer Post splinting neuro exam: intact Post splinting vascular exam: intact Placed by: Nursing Scores <BRONSON Chacon - Last Filed: 02/07/19 20:01> GCS Fletcher coma scale eye opening: Spontaneous [place] coma scale verbal response: Orientated Fletcher coma scale motor response: Obey commands [place] coma scale total score: 15 Nexus Score for C-Spine Focal Neurologic deficit present: No Midline spinal tenderness present: No Altered level of conciousness present: No Intoxication present: No Distracting Injury Present: No Nexus Criteria for C-spine: 0 Course <BRONSON Chacon - Last Filed: 02/07/19 20:01> Orders Ordered: ED Orders 02/07/19 12:26 XR elbow LT min 3V Stat XR shoulder LT min 2V Stat Discontinued Medications Acetaminophen (Tylenol) 650 mg PO NOW ONE Stop: 02/07/19 12:50 Last Admin: 02/07/19 13:22 Dose: 650 mg Documented by: RDORIGUE Lidocaine (Lidoderm) 1 each TOP NOW ONE Stop: 02/07/19 12:50 Last Admin: 02/07/19 13:22 Dose: 1 each Documented by: RODRIGUE Vital Signs Vital signs: Vital Signs - 8 hr 02/07/19 12:16 Temperature 97.7 F Pulse Rate 57 L Respiratory Rate 15 Blood Pressure 159/73 H Pulse Oximetry 96 <Jeanette Driscoll MD - Last Filed: 02/07/19 20:06> Orders Ordered: ED Orders 02/07/19 12:26 XR elbow LT min 3V Stat XR shoulder LT min 2V Stat Discontinued Medications Acetaminophen (Tylenol) 650 mg PO NOW ONE Stop: 02/07/19 12:50 Last Admin: 02/07/19 13:22 Dose: 650 mg Documented by: RODRIGUE Lidocaine (Lidoderm) 1 each TOP NOW ONE Stop: 02/07/19 12:50 Last Admin: 02/07/19 13:22 Dose: 1 each Documented by: RODRIGUE Vital Signs Vital signs: Vital Signs - 8 hr 02/07/19 12:16 Temperature 97.7 F Pulse Rate 57 L Respiratory Rate 15 Blood Pressure 159/73 H Pulse Oximetry 96 MDM - Extremity Injury (Upper) <BRONSON Chacon - Last Filed: 02/07/19 20:01> Imaging Data Shoulder x-ray: Radiologist's impression: XRay Report Signed Patient: Oxana Spencer LMR#: [id number] : 8Acct:[id number] Age/Sex: 83 / FDate of Service: 02/07/19 Loc: ED Accession Number: [id number] Procedure: XR shoulder LT min 2V Ordering Provider: Priscilla Talavera PROCEDURE: XR SHOULDER LT MIN 2V INDICATIONS: pain sp fall TECHNIQUE: 2 views of the shoulder were acquired. COMPARISON: None. FINDINGS: Bones: No fractures or dislocations. No suspicious bony lesions. Visualized ribs appear intact. Soft tissues: No suspicious soft tissue calcifications. IMPRESSION: No trauma found. Dictated by: Raimundo Vasquez M.D. on 02/07/2019 at 13:09 Approved by: Raimundo Vasquez M.D. on 02/07/2019 at 13:09 Elbow x-ray: Radiologist's impression: [place] [address] XRay Report Signed Patient: Oxana Spencer LMR#: [id number] : 8Acct:[id number] Age/Sex: 83 / FDate of Service: 02/07/19 Loc: ED Accession Number: [id number] Procedure: XR elbow LT min 3V Ordering Provider: Priscilla Talavera PROCEDURE: XR ELBOW LT MIN 3V INDICATIONS: pain sp fall TECHNIQUE: 3 views of the elbow were acquired. COMPARISON: None. FINDINGS: Bones: No fractures or dislocations. No suspicious bony lesions. Soft tissues: No elbow joint effusion. No suspicious soft tissue calcifications. IMPRESSION: No trauma found. Dictated by: Raimundo Vasquez M.D. on 02/07/2019 at 13:08 Approved by: Raimundo Vasquez M.D. on 02/07/2019 at 13:09 [facility] Narrative Medical decision making narrative: The patient is a 83-year-old female who presents after falling and injuring her left arm. Patient is on blood thinners, but adamantly declines any head CT I discussed presentation of head injury including dizziness, seizures etc and encourage coming back to the emergency department if needed. Patient still declined head imaging. The patient has negative x-rays, though she cannot take any pain medications other than Tylenol. She states he is allergic to NSAIDs and that she cannot have any opiates. She is neurovascularly intact throughout her stay in the emergency department. She was placed in a sling per her request, I did encourage range of motion is stated that she is more likely to have frozen shoulder she uses the sling. I did discuss that normal x-rays do not rule out occult fracture or soft tissue injury. Encouraged follow-up with PCP in the next few days. Discussed at length return precautions the emergency department cleaning confusion, decreased circulation. Patient has been of no questions or concerns upon discharge and state understanding of return precautions as well as follow-up care. Discharge Plan Departure Patient Disposition: Home Clinical Impression: Acute pain of left shoulder, Elbow pain, left, Fall from ground level Discharge Date/Time: 02/07/19 14:11 Instructions: How to Use a Sling, Exercises to Help Prevent Falls, How To Perform RICE (Rest, Ice, Compress, Elevate), How to Prevent Falls, DI for Shoulder Pain, DI for Elbow Pain Activity Restrictions/Additional Instructions: Please follow up with primary care provider. As I discussed, your x-ray shows no acute fracture. This does not rule out a soft tissue injury such as a ligament or tendon injury. It is important that you follow up with primary care provider, especially if worsening or no improvement. There can be fractures that did not show up on initial x-ray. Please use rest ice compression elevation as well as [id number] pain medications as needed and able. Please come back to the emergency department for any acute concerns. Prescriptions: No Action esomeprazole magnesium [Nexium] 40 mg capsule,delayed release(DR/EC) 40 mg PO BID RF: 0 hyoscyamine sulfate 0.125 mg tablet,disintegrating 0.125 mg PO ONCE PRN (Reason: dyspepsia) Qty: 10 RF: 0 alprazolam 0.25 mg tablet 0.25 mg PO DAILY RF: 0 cyanocobalamin (vitamin B-12) [Vitamin B-12] 1,000 mcg tablet 1,000 mcg PO DAILY RF: 0 multivitamin tablet 1 tab PO DAILY Qty: 30 RF: 0 trazodone 50 mg tablet 50 mg PO BEDTIME PRN (Reason: insomnia) Qty: 30 RF: 0 calcium carbonate 500 mg calcium (1,250 mg) capsule 500 mg PO BID Qty: 60 RF: 0 niacin 50 mg tablet 50 mg PO BID Qty: 60 RF: 0 arginine (L-arginine) 500 mg capsule 500 mg PO .QHS Qty: 30 RF: 0 cholecalciferol (vitamin D3) 400 unit capsule 400 unit PO DAILY Qty: 30 RF: 0 FISH OIL 1,200 mg 1,200 mg PO .QD Qty: 30 RF: 0 nefazodone 250 mg tablet 500 mg PO BEDTIME RF: 0 colesevelam [WelChol] 625 mg tablet 2 tab PO BID RF: 0 ezetimibe 10 mg tablet 5 mg PO DAILY RF: 0 warfarin 5 mg tablet 5 mg PO DAILY RF: 0 Referrals: Evita Jarvis DO [Primary Care Provider] -
== END 2019-02-07 14:11 | disposition home or self-care (01) ==
PROVIDERS: Emergency Provider Nurse Practitioner Family; PCP Family Medicine
DX: M25.512 Pain in left shoulder (principal); M25.522 Pain in left elbow; W01.0XXA Fall on same level from slipping, tripping and stumbling without subsequent striking against object, initial encounter
CPT/HCPCS: 73030; 73080; 99282; 99283

== ENCOUNTER → 2019-02-22 12:53 | Outpatient (CLI) | payer MEDICARE, OTHER, SELFPAY ==
[2019-02-22 14:12] LABS: Occult Blood 1 Negative (Negative)
[2019-02-22 14:13] LABS: Occult Blood 2 Negative (Negative); Occult Blood 3 Positive (Negative)
== END ==
PROVIDERS: PCP Family Medicine; Visit Provider Family Medicine
DX: N39.0 Urinary tract infection, site not specified (principal); R19.7 Diarrhea, unspecified
CPT/HCPCS: 82270; 87086

== ENCOUNTER → 2019-04-21 12:08 | Outpatient (CLI) | payer MEDICARE, OTHER, SELFPAY ==
[2019-04-21 13:45] LABS: Alanine Aminotransferase 41 IU/L (<35); Albumin 4.3 g/dL (3.5-5.0); Albumin Globulin Ratio 1.7 (1.0-2.8); Alkaline Phosphatase 86 U/L (38-126); Aspartate Aminotransferase 37 IU/L (14-36); BUN Creatinine Ratio 23.8 (6-22); Bilirubin Total 0.9 mg/dL (0.2-1.3); Blood Urea Nitrogen 19 mg/dL (7-17); Calcium 9.7 mg/dL (8.4-10.2); Carbon Dioxide 27 mmol/L (22-32); Chloride 105 mmol/L (98-107); Estimated Glomerular Filt Rate > 60.0 mL/min (>60); Globulin 2.5 g/dL (1.7-4.1); Glucose 79 mg/dL (80-110); HEMOLYSIS < 15 (0-50); Potassium 4.4 mmol/L (3.4-5.1); Sodium 139 mmol/L (137-145); Total Protein 6.8 g/dL (6.3-8.2)
== END ==
PROVIDERS: PCP Family Medicine; Referring Provider Psychiatry & Neurology Psychiatry; Visit Provider Psychiatry & Neurology Psychiatry
DX: F41.1 Generalized anxiety disorder (principal); Z79.899 Other long term (current) drug therapy
CPT/HCPCS: 36415; 80048; 80076

== ENCOUNTER → 2019-05-13 20:28 | Outpatient (CLI) | payer MEDICARE, OTHER, SELFPAY ==
--- NOTE | 2019-05-13 20:32 | DI.MRI.S_ITS ---
PROCEDURE: MR SHOULDER LT WO CON INDICATIONS: left shoulder pain TECHNIQUE: Noncontrast oblique coronal T2 fast spin echo with fat saturation, oblique sagittal T1 spin echo and T2 fast spin echo with fat saturation, axial T1 spin echo and T2 fast spin echo with fat saturation through the shoulder. COMPARISON: [facility] [place], [place], XR SHOULDER 2+ VIEWS LEFT, 03/14/2019, 9:01. FINDINGS: Image quality: Excellent. Rotator cuff: There is tendinosis and moderate grade articular and bursal surface partial-thickness tear involving distal supraspinatus and infraspinatus at their insertion the humeral head extending to the musculotendinous junction. Focal area of full-thickness perforation involving posterior fibers of distal supraspinatus near musculotendinous junction is likely present. There is distal subscapularis tendinosis and low-grade intrasubstance partial thickness tear. Sagittal images demonstrate mild to moderate supraspinatus muscle atrophy. Bones and bursae: There is edema involving greater tuberosity of humeral head with internal linear hypointense signal concerning for a nondisplaced fracture in this area. Moderate acromioclavicular joint osteoarthritic changes are seen with downward osteophyte formation depressing the musculotendinous junction of supraspinatus. Moderate glenohumeral joint osteoarthritic changes are also seen. Small to moderate amount of glenohumeral joint fluid and subacromial subdeltoid bursal fluid. Capsule and soft tissues: In the absence of intra-articular contrast, there is suggestion of superior anterior labral tear 12 to 2:00 position. The glenohumeral ligaments appear intact. Tendinosis and low to moderate grade partial-thickness tear involving proximal intra-articular portion of long head of biceps tendon is seen. The rotator interval appears normal, without fibrosis. The coracohumeral ligament is normal in thickness. IMPRESSION: 1. Tendinosis a moderate grade articular and bursal surface partial-thickness tear involving distal supraspinatus and infraspinatus extending to musculotendinous junction. Focal area of full-thickness perforation involving posterior fibers of distal supraspinatus near musculotendinous junction. Distal subscapularis tendinosis and low-grade intrasubstance partial thickness tear. Mild to moderate supraspinatus muscle atrophy. 2. Marrow edema and cortical irregularity involving greater tuberosity of humeral head suggestive of a nondisplaced fracture in this area. No other area of abnormal marrow signal. Moderate acromioclavicular joint and glenohumeral joint osteoarthritis. Small to moderate amount of joint effusion and subacromial subdeltoid bursal fluid. 3. Suggestion of superior anterior labral tear 12 to 2:00 position. Tendinosis and low to moderate grade partial-thickness tear involving proximal intra-articular portion of the biceps. Dictated by: Mitch Johnson M.D. on 05/16/2019 at 8:33 Approved by: Mitch Johnson M.D. on 05/16/2019 at 8:40
== END ==
PROVIDERS: PCP Family Medicine; Referring Provider Family Medicine; Visit Provider Family Medicine
DX: M25.512 Pain in left shoulder (principal); M75.112 Incomplete rotator cuff tear or rupture of left shoulder, not specified as traumatic; M19.012 Primary osteoarthritis, left shoulder; S46.112A Strain of muscle, fascia and tendon of long head of biceps, left arm, initial encounter
CPT/HCPCS: 73221

== ENCOUNTER → 2019-05-18 11:03 | Outpatient (CLI) | payer MEDICARE, OTHER, SELFPAY ==
--- NOTE | 2019-05-18 11:05 | DI.US.S_ITS ---
PROCEDURE: US THYROID INDICATIONS: 6 MONTH F/U THYROID NODULE TECHNIQUE: Real-time scanning was performed of the thyroid gland, with image documentation. COMPARISON: [facility], [place], US THYROID, 08/04/2018, 12:48. [facility], [place], THYROID, 07/08/2017, 13:16. FINDINGS: Right: The right thyroid lobe measures 1.3 x 1.4 x 4.6 cm, contains no nodules, and does not show evidence of abnormal vascularity. Left: The thyroid on the left measures 1.0 x 1.3 x 4.6, and contains no discrete nodules. There is a small ovoid nodule at the junction of the isthmus with the medial glandular margin discussed below. No abnormal vascularity. Isthmus: The isthmus measures 3 mm in thickness, and contains a 4 x 7 x 7 mm ovoid solid nodule that is hypoechoic and smoothly marginated without internal calcifications. IMPRESSION: The thyroid gland bilaterally appears normal except at the junction of the isthmus on the left with the left thyroid lobe. At that site a small ovoid solid nodule measures 4 x 7 x 7 mm, and is not enlarged in relationship to prior thyroid ultrasound 08/04/18 and 07/08/17. No suspicious nodules found, no followup recommended. Dictated by: Raimundo Vasquez M.D. on 05/18/2019 at 16:37 Approved by: Raimundo Vasquez M.D. on 05/18/2019 at 16:41
== END ==
PROVIDERS: PCP Family Medicine; Referring Provider Family Medicine; Visit Provider Family Medicine
DX: E04.1 Nontoxic single thyroid nodule (principal)
CPT/HCPCS: 76536

== ENCOUNTER → 2019-09-27 12:04 | Outpatient (CLI) | payer MEDICARE, OTHER, SELFPAY | PROVIDERS: PCP Family Medicine; Referring Provider Family Medicine; Visit Provider Family Medicine | DX: R30.0 Dysuria (principal); R39.15 Urgency of urination | CPT/HCPCS: 87077; 87086; 87186 ==

== ENCOUNTER → 2019-11-12 14:25 | Outpatient (CLI) | payer MEDICARE, OTHER, SELFPAY | PROVIDERS: PCP Family Medicine; Visit Provider Physician Assistant | DX: N30.01 Acute cystitis with hematuria (principal) | CPT/HCPCS: 87077; 87086; 87186 ==

== ENCOUNTER 2019-11-14 12:18 | Emergency (ER) | payer MEDICARE, OTHER, SELFPAY ==
[2019-11-14] VITALS (10 sets, daily range): BP systolic 122–148; BP diastolic 62–77; PULSE 57–84; RESP 13–24; TEMP 36.7; O2SAT 96–100
--- NOTE | 2019-11-14 12:35 | DI.RAD.S_ITS ---
PROCEDURE: XR CHEST 1V INDICATIONS: chest pain TECHNIQUE: One view of the chest was acquired. COMPARISON: [facility], CR, XR CHEST 1V, 01/20/2018, 17:22. FINDINGS: Surgical changes and devices: None. Lungs and pleura: Lungs are clear. No pleural effusions or pneumothorax. Mediastinum: Mediastinal contours appear normal. Heart size is normal. Bones and chest wall: No suspicious bony lesions. Overlying soft tissues appear unremarkable. IMPRESSION: No acute cardiopulmonary pathology. Dictated by: Mitch Johnson M.D. on 11/14/2019 at 12:55 Approved by: Mitch Johnson M.D. on 11/14/2019 at 12:56
[2019-11-14 13:35] LABS: Add Manual Diff / Slide Review NO; Basophils Absolute Auto 0 /uL (0-100); Basophils Percent Auto 0.7 % (0-2); Eosinophils Absolute Auto 0 /uL (0-450); Eosinophils Percent Auto 1.1 % (2-4); Hemoglobin 13.6 g/dL (12.0-16.0); Lymphocytes Absolute Auto 600 /uL (1100-4500); Lymphocytes Percent Auto 14.5 % (25-40); Mean Corpuscular HGB Conc 32.5 % (30-36); Mean Corpuscular Hemoglobin 30.1 PG (26-34); Mean Corpuscular Volume 92.8 fL (80-100); Monocytes Absolute Auto 300 /uL (0-900); Monocytes Percent Auto 8.9 % (3-14); Neutrophils Absolute Auto 2900 /uL (1500-7000); Neutrophils Percent Auto 74.8 % (50-75); Platelet Count 257 X10^3/uL (150-400); Red Blood Cell Count 4.52 X10^6/uL (4.0-5.2); Red Cell Distribution Width 14.4 % (11.6-14.8); White Blood Cell Count 3.9 X10^3/uL (4.5-11.0)
[2019-11-14 13:42] LABS: INR 3.3 (0.9-1.3); Prothrombin Time 37.8 SECONDS (10.1-12.7)
[2019-11-14 13:44] LABS: PTT Partial Thromboplastin Tim 43 SECONDS (26.4-36.2)
[2019-11-14 13:46] LABS: Alanine Aminotransferase 382 IU/L (<35); Albumin Globulin Ratio 1.6 (1.0-2.8); Alkaline Phosphatase 156 U/L (38-126); Aspartate Aminotransferase 718 IU/L (14-36); BUN Creatinine Ratio 18.6 (6-22); Bilirubin Total 0.9 mg/dL (0.2-1.3); Blood Urea Nitrogen 16 mg/dL (7-17); Calcium 8.7 mg/dL (8.4-10.2); Carbon Dioxide 32 mmol/L (22-32); Chloride 107 mmol/L (98-107); Creatine Kinase 55 U/L (30-135); Estimated Glomerular Filt Rate > 60.0 mL/min (>60); Globulin 2.5 g/dL (1.7-4.1); Glucose 99 mg/dL (80-110); HEMOLYSIS < 15 (0-50); Lipase 112 U/L (23-300); Potassium 4.2 mmol/L (3.4-5.1); Sodium 139 mmol/L (137-145); Total Protein 6.5 g/dL (6.3-8.2)
[2019-11-14 13:57] LABS: Troponin I < 0.012 ng/mL (0.01-0.034)
--- NOTE | 2019-11-14 14:10 | DI.MRI.S_ITS ---
PROCEDURE: MR ABDOMEN WO CON INDICATIONS: elevated LFTS, hx rozina TECHNIQUE: Coronal HASTE through the abdomen, axial 2-D FLASH in- and [id number], and breath-hold T2 FSE with fat saturation through the biliary system and pancreas. Oblique coronal and axial thin-slice HASTE, radial thick-slab HASTE centered on the extrahepatic bile ducts. Intravenous secretin: Not requested. COMPARISON: None. FINDINGS: Image quality: Excellent. Pancreas and biliary system: Status post cholecystectomy. There is mild dilatation of the central intrahepatic and extrahepatic biliary ducts. There is no choledocholithiasis. The common hepatic duct measures 7 mm. The distal common bile duct at the level of the pancreatic head measures 10 mm in diameter. Pancreas is normal in morphology, without adjacent soft tissue edema. Pancreatic duct is normal in caliber, without developmental anomalies. Other solid organs: Liver is normal in size. Spleen is normal in size. No adrenal nodules. Both kidneys are normal in size, without hydronephrosis. Nodes and vessels: No retroperitoneal or mesenteric adenopathy by size criteria. Aorta and inferior vena cava are normal in size. Bowel and peritoneum: Unenhanced bowel loops are normal in caliber. No free fluid. There is a small hiatal hernia. Lung bases: No basal pleural effusions. Heart size is normal. Bones and soft tissues: No ventral hernias. Bone marrow is of normal overall signal. IMPRESSION: Status post cholecystectomy. Mild dilatation of the extrahepatic and central intrahepatic biliary ducts are likely related to the prior cholecystectomy. No focal filling defect or stenosis is seen. Dictated by: Alonso Robert M.D. on 11/14/2019 at 15:43 Approved by: Alonso Robert M.D. on 11/14/2019 at 15:51
[2019-11-14 15:35] LABS: RBC Urine None Seen (0-5/HPF)
[2019-11-14 15:47] LABS: Bacteria Urine Few (2-10); Culture Indicated Urine Specimen Cultured; Squamous Epithelial Cell Urine 0-1 /HPF (0-5/HPF); WBC Urine 1-5/HPF (0-5/HPF)
--- NOTE | 2019-11-14 16:20 | ED_ITS ---
HPI - Chest Pain <Priscilla FowlerJONES smith-BC - Last Filed: 11/14/19 18:40> General Chief Complaint: Chest Pain Stated Complaint: Chest Pain Under Bust Line Time Seen by Provider: 11/14/19 13:44 Source: patient Mode of arrival: Ambulatory Limitations: no limitations History of Present Illness HPI narrative: The patient is a delightful 84-year-old female nonsmoker with history of peptic ulcer disease, hiatal hernia, GERD who presents with a chief complaint. of chest pain she states that it goes across her bra line over the front of her abdomen and chest. She denies any lightheadedness or dizziness, denies any nausea or vomiting. She does have history of a cholecystectomy, hysterectomy, knee surgery. Pain started last night, it comes and goes ranges from 5/10 to 10/10. Sometimes she is pain-free. She denies any cough, shortness of breath or fever. She is currently on nitrofurantoin for urinary tract infection. Related Data Home Medications Medication Instructions Recorded Confirmed alprazolam 0.25 mg tablet 0.25 mg PO DAILY 08/20/17 10/07/19 cyanocobalamin (vitamin B-12) 1,000 mcg PO DAILY 08/20/17 10/07/19 1,000 mcg tablet esomeprazole magnesium 40 mg 40 mg PO BID cap 12/28/17 10/07/19 capsule,delayed release colesevelam [WelChol] 2 tab PO BID 01/20/18 10/07/19 nefazodone 500 mg PO BEDTIME 01/20/18 10/07/19 ezetimibe 5 mg PO DAILY 02/07/19 10/07/19 Previous Rx's Medication Instructions Recorded FISH OIL 1,200 mg PO .QD #30 08/28/17 arginine (L-arginine) 500 mg 500 mg PO .QHS #30 cap 08/28/17 capsule calcium carbonate 500 mg calcium 500 mg PO BID #60 cap 08/28/17 (1,250 mg) capsule cholecalciferol (vitamin D3) 10 400 unit PO DAILY #30 cap 08/28/17 mcg (400 unit) capsule multivitamin 1 tab PO DAILY #30 tab 08/28/17 niacin 50 mg tablet 50 mg PO BID #60 tab 08/28/17 trazodone 50 mg tablet 50 mg PO BEDTIME PRN #30 tab 08/28/17 warfarin 5 mg tablet 5 mg PO DAILY #90 tab 10/07/19 Allergies Allergy/AdvReac Type Severity Reaction Status Date / Time Sulfa (Sulfonamide Allergy Severe TROUBLE Verified 11/14/19 12:34 Antibiotics) BREATHING [SULFA (SULFONAMIDE ANTIBIOTICS)] morphine [MORPHINE] Allergy Unknown Verified 11/14/19 12:34 Penicillins [PENICILLINS] Allergy Unknown Verified 11/14/19 12:34 Review of Systems <BRONSON Chacon - Last Filed: 11/14/19 18:40> Review of Systems Narrative: GENERAL: Denies chills, fatigue, malaise, fever, sweats. HEENT: Denies sinus pain, ear pain, sore throat, difficulty swallowing, dizziness. RESPIRATORY: Denies dyspnea, cough, wheezing, hemoptysis, sputum. CARDIOVASCULAR: Denies chest pain, palpitations, orthopnea, edema, GASTROINTESTINAL: See HPI : Denies dysuria, frequency, incontinence, hematuria, urinary retention. MUSCULOSKELETAL: denies weakness, joint pain, or bony pain SKIN: Denies rash, skin lesions, or other NEUROLOGIC: Denies weakness, headache, numbness, change in speech, confusion, seizures, incoordination. PSYCHIATRIC: No concerning psychosocial issues. 12 point review of systems is negative except for those stated above Patient History <BRONSON Chacon - Last Filed: 11/14/19 18:40> Medical History Anemia (Resolved) Anxiety (Chronic) Asthma (Chronic) Asymptomatic carotid artery stenosis (Chronic 05/25/15) BCC (basal cell carcinoma of skin) (Resolved 2010) Bronchiectasis (Acute) Carpal tunnel syndrome, right (Chronic 2014) Cataract (Resolved) Chicken pox (Resolved) Colon polyps (Resolved 1991) Depression (Chronic) Eczema (Chronic) Fibroids (Resolved 1994) Gastroesophageal reflux disease (Resolved 1997) Hayfever (Chronic) Hiatal hernia (Acute) Hyperlipidemia (Chronic 01/08/15) Insomnia (Chronic) Lactose intolerance in adult (Chronic 10/20/16) Left leg DVT (Resolved 1994) MCC 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) Measles (Resolved) Painful menstrual periods (Resolved) Peptic ulcer disease (Chronic 1982) Plantar warts (Chronic 1951) 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) Thyroid nodule (Chronic 05/24/15) Tubular adenoma of colon (Resolved ~04/2016) Urinary tract infection (Acute) Urinary tract infection (Acute) Whiplash injury (Chronic) Surgical History Anesthesia (Resolved) History of cataract removal with insertion of prosthetic lens (03/22/14) History of cataract removal with insertion of prosthetic lens (04/12/14) History of fundoplication (Resolved 2000) History of phacoemulsification of cataract of left eye with intraocular lens implantation (Resolved 04/12/14) History of phacoemulsification of cataract of right eye with intraocular lens implantation (Resolved 03/22/14) History of tonsillectomy (Resolved ~1941) Status post appendectomy (Resolved) Status post cholecystectomy (Resolved) Status post hysterectomy (Resolved 1995) Status post knee surgery (Resolved 1994) Family History Son Age: 59 CAD (coronary artery disease) Heart attack Son Age: 54 Prostate cancer Father Heart disease Cardiac aneurysm Sister Age: 78 Malignant neoplasm of female breast, unspecified laterality, unspecified site of breast Brother No problems noted. Son No problems noted. Grandfather Heart attack Grandmother Cancer Mother Ovarian cancer Social History Smoking Status: Never smoker Smoking Status: Never smoker alcohol intake frequency: 0-2 drinks per day Substance Use Type: does not use Exam <BRONSON Chacon - Last Filed: 11/14/19 18:40> Narrative Exam Narrative: GENERAL: This is a well-nourished, well-developed patient, in no acute distress. HEAD: Atraumatic. Normocephalic. No temporal or scalp tenderness. EYES: Pupils equal round and reactive. Extraocular motions intact. No scleral icterus. No injection or drainage. ENT: Nose without bleeding, purulent drainage or septal hematoma. Throat without erythema, tonsillar hypertrophy or exudate. Uvula midline. Airway patent. NECK: Trachea midline. No JVD or lymphadenopathy. Supple, nontender, no meningeal signs. CARDIOVASCULAR: Regular rate and rhythm RESPIRATORY: Clear to auscultation. Breath sounds equal bilaterally. No wheezes, rales, or rhonchi. No cough. No increased respiratory effort. No accessory muscle use. GASTROINTESTINAL: Abdomen soft, slight tenderness to palpation right upper quadrant across to left upper quadrant, nondistended. No hepato-splenomegaly, or palpable masses. No guarding. Active bowel sounds all 4 quadrants EXTREMITIES: No clubbing, cyanosis, or edema. No joint tenderness, effusion, or edema noted. BACK: Nontender without deformity or crepitance. No flank tenderness. NEURO: AOx3. SKIN: No rash or erythema on visible skin Initial Vital Signs Initial Vital Signs: Vital Signs Temperature 98.1 F 11/14/19 12:20 Pulse Rate 84 11/14/19 12:20 Respiratory Rate 18 11/14/19 12:20 Blood Pressure 148/77 H 11/14/19 12:20 Pulse Oximetry 100 11/14/19 12:20 <Janie Mcmahon MD - Last Filed: 11/22/19 08:25> Initial Vital Signs Initial Vital Signs: Vital Signs Temperature 98.1 F 11/14/19 12:20 Pulse Rate 84 11/14/19 12:20 Respiratory Rate 18 11/14/19 12:20 Blood Pressure 148/77 H 11/14/19 12:20 Pulse Oximetry 100 11/14/19 12:20 Scores <BRONSON Chacon - Last Filed: 11/14/19 18:40> GCS [place] coma scale eye opening: Spontaneous [place] coma scale verbal response: Orientated [place] coma scale motor response: Obey commands [place] coma scale total score: 15 Course <BRONSON Chacon - Last Filed: 11/14/19 18:40> Orders Ordered: ED Orders 11/14/19 12:35 XR chest 1V Stat EKG-12 Lead Stat 11/14/19 13:27 Complete Blood Count AUTO DIFF Stat Comprehensive Metabolic Panel Stat Lipase Stat Magnesium Stat Partial Thromboplastin Time Stat Prothrombin Time INR Stat Troponin & CK Cardiac Panel Stat 11/14/19 14:10 MR abdomen wo con Stat 11/14/19 15:33 Urine Culture Stat Urine Microscopic Stat 11/14/19 16:32 Troponin & CK Cardiac Panel Stat Vital Signs Vital signs: Vital Signs - 8 hr 11/14/19 12:20 11/14/19 13:14 11/14/19 13:17 Temperature 98.1 F Pulse Rate 84 70 65 Respiratory Rate 18 Blood Pressure 148/77 H 134/66 Pulse Oximetry 100 97 96 11/14/19 13:30 11/14/19 14:00 11/14/19 14:01 Temperature Pulse Rate 60 60 64 Respiratory Rate 13 21 20 Blood Pressure 122/64 146/65 H Pulse Oximetry 96 96 97 11/14/19 14:30 11/14/19 14:50 11/14/19 16:34 Temperature Pulse Rate 57 L 62 Respiratory Rate 24 23 Blood Pressure 134/63 136/66 Pulse Oximetry 97 11/14/19 17:31 Temperature Pulse Rate 70 Respiratory Rate 16 Blood Pressure 135/62 Pulse Oximetry 100 <Janie Mcmahon MD - Last Filed: 11/22/19 08:25> Orders Ordered: ED Orders 11/14/19 12:35 XR chest 1V Stat EKG-12 Lead Stat 11/14/19 13:27 Complete Blood Count AUTO DIFF Stat Comprehensive Metabolic Panel Stat Lipase Stat Magnesium Stat Partial Thromboplastin Time Stat Prothrombin Time INR Stat Troponin & CK Cardiac Panel Stat 11/14/19 14:10 MR abdomen wo con Stat 11/14/19 15:33 Urine Culture Stat Urine Microscopic Stat 11/14/19 16:32 Troponin & CK Cardiac Panel Stat Vital Signs Vital signs: Vital Signs - 8 hr 11/14/19 12:20 11/14/19 13:14 11/14/19 13:17 Temperature 98.1 F Pulse Rate 84 70 65 Respiratory Rate 18 Blood Pressure 148/77 H 134/66 Pulse Oximetry 100 97 96 11/14/19 13:30 11/14/19 14:00 11/14/19 14:01 Temperature Pulse Rate 60 60 64 Respiratory Rate 13 21 20 Blood Pressure 122/64 146/65 H Pulse Oximetry 96 96 97 11/14/19 14:30 11/14/19 14:50 11/14/19 16:34 Temperature Pulse Rate 57 L 62 Respiratory Rate 24 23 Blood Pressure 134/63 136/66 Pulse Oximetry 97 11/14/19 17:31 Temperature Pulse Rate 70 Respiratory Rate 16 Blood Pressure 135/62 Pulse Oximetry 100 MDM - Chest Pain <BRONSON Chacon - Last Filed: 11/14/19 18:40> Differential Diagnosis Differential diagnosis: Likely unstable angina pectoris, atypical chest pain, costochondritis and biliary colic Lab Data Result diagrams: 11/14/19 13:27 11/14/19 13:27 Labs: Lab Results 11/14/19 11/14/19 11/14/19 Range/Units 13:27 13:27 13:27 WBC 3.9 L (4.5-11.0) X10^3/uL RBC 4.52 (4.0-5.2) X10^6/uL Hgb 13.6 (12.0-16.0) g/dL Hct 42.0 (36-46) % MCV 92.8 (80-100) fL MCH 30.1 (26-34) PG MCHC 32.5 (30-36) % RDW 14.4 (11.6-14.8) % Plt Count 257 (150-400) X10^3/uL Neut % (Auto) 74.8 (50-75) % Lymph % (Auto) 14.5 L (25-40) % [place] % (Auto) 8.9 (3-14) % Eos % (Auto) 1.1 L (2-4) % Baso % (Auto) 0.7 (0-2) % Neut # (Auto) 2900 (2975-7211) /uL Lymph # (Auto) 600 L (3765-1749) /uL [place] # (Auto) 300 (0-900) /uL Eos # (Auto) 0 (0-450) /uL Baso # (Auto) 0 (0-100) /uL PT 37.8 H (10.1-12.7) SECONDS INR 3.3 H (0.9-1.3) APTT 43 H D (26.4-36.2) SECONDS Sodium 139 (137-145) mmol/L Potassium 4.2 (3.4-5.1) mmol/L Chloride 107 (98-107) mmol/L Carbon Dioxide 32 (22-32) mmol/L BUN 16 (7-17) mg/dL Creatinine 0.86 (0.52-1.04) mg/dL Estimated GFR > 60.0 (>60) mL/min BUN/Creatinine Ratio 18.6 (6-22) Glucose 99 (80-110) mg/dL Calcium 8.7 (8.4-10.2) mg/dL Magnesium 2.0 (1.6-2.3) mg/dL Total Bilirubin 0.9 (0.2-1.3) mg/dL AST 718 H (14-36) IU/L ALT 382 H (<35) IU/L Alkaline Phosphatase 156 H (38-126) U/L Total Creatine Kinase 55 (30-135) U/L CK-MB (CK-2) TNP CK-MB (CK-2) Rel Index TNP Troponin I < 0.012 (0.01-0.034) ng/mL Total Protein 6.5 (6.3-8.2) g/dL Albumin 4.0 (3.5-5.0) g/dL Globulin 2.5 (1.7-4.1) g/dL Albumin/Globulin Ratio 1.6 (1.0-2.8) Lipase 112 (23-300) U/L Urine RBC (0-5/HPF) Urine WBC (0-5/HPF) Ur Squamous Epith Cells (0-5/HPF) Urine Bacteria (None) Ur Culture Indicated? 11/14/19 11/14/19 Range/Units 15:33 16:32 WBC (4.5-11.0) X10^3/uL RBC (4.0-5.2) X10^6/uL Hgb (12.0-16.0) g/dL Hct (36-46) % MCV (80-100) fL MCH (26-34) PG MCHC (30-36) % RDW (11.6-14.8) % Plt Count (150-400) X10^3/uL Neut % (Auto) (50-75) % Lymph % (Auto) (25-40) % [place] % (Auto) (3-14) % Eos % (Auto) (2-4) % Baso % (Auto) (0-2) % Neut # (Auto) (1963-2060) /uL Lymph # (Auto) (4893-2035) /uL [place] # (Auto) (0-900) /uL Eos # (Auto) (0-450) /uL Baso # (Auto) (0-100) /uL PT (10.1-12.7) SECONDS INR (0.9-1.3) APTT (26.4-36.2) SECONDS Sodium (137-145) mmol/L Potassium (3.4-5.1) mmol/L Chloride (98-107) mmol/L Carbon Dioxide (22-32) mmol/L BUN (7-17) mg/dL Creatinine (0.52-1.04) mg/dL Estimated GFR (>60) mL/min BUN/Creatinine Ratio (6-22) Glucose (80-110) mg/dL Calcium (8.4-10.2) mg/dL Magnesium (1.6-2.3) mg/dL Total Bilirubin (0.2-1.3) mg/dL AST (14-36) IU/L ALT (<35) IU/L Alkaline Phosphatase (38-126) U/L Total Creatine Kinase 48 (30-135) U/L CK-MB (CK-2) TNP CK-MB (CK-2) Rel Index TNP Troponin I < 0.012 (0.01-0.034) ng/mL Total Protein (6.3-8.2) g/dL Albumin (3.5-5.0) g/dL Globulin (1.7-4.1) g/dL Albumin/Globulin Ratio (1.0-2.8) Lipase (23-300) U/L Urine RBC None seen (0-5/HPF) Urine WBC 1-5/hpf (0-5/HPF) Ur Squamous Epith Cells 0-1 /hpf (0-5/HPF) Urine Bacteria Few (2-10) H (None) Ur Culture Indicated? Specimen cultured Urine Dip Bedside Urine Glucose Negative Bedside Urine Bilirubin - Negative Bedside Urine Ketone - Negative Urine Specific Buhler 1.015 Bedside Urine Occult Blood - Negative Bedside Urine pH 6.0 Bedside Urine Protein - Negative Bedside Urine Urobilinogen - Negative Bedside Urine Nitrite - Negative Bedside Urine Leukocytes ++ 125 Esterase Imaging Data MRCP: Radiologist's Impression: [address] [place] [id number] Magnetic Resonance Report Signed Patient: Oxana Spencer LMR#: [id number] : 1936Acct:[id number] Age/Sex: 84 / FDate of Service: 11/14/19 Loc: ED Accession Number: [id number] Procedure: MR abdomen wo con Ordering Provider: Priscilla Talavera [employer] ENGINEERING TECHNICIAN-BC PROCEDURE: MR ABDOMEN WO CON INDICATIONS: elevated LFTS, hx rozina TECHNIQUE: Coronal HASTE through the abdomen, axial 2-D FLASH in- and [id number], and breath-hold T2 FSE with fat saturation through the biliary system and pancreas. Oblique coronal and axial thin-slice HASTE, radial thick-slab HASTE centered on the extrahepatic bile ducts. Intravenous secretin: Not requested. COMPARISON: None. FINDINGS: Image quality: Excellent. Pancreas and biliary system: Status post cholecystectomy. There is mild dilatation of the central intrahepatic and extrahepatic biliary ducts. There is no choledocholithiasis. The common hepatic duct measures 7 mm. The distal common bile duct at the level of the pancreatic head measures 10 mm in diameter. Pancreas is normal in morphology, without adjacent soft tissue edema. Pancreatic duct is normal in caliber, without developmental anomalies. Other solid organs: Liver is normal in size. Spleen is normal in size. No adrenal nodules. Both kidneys are normal in size, without hydronephrosis. Nodes and vessels: No retroperitoneal or mesenteric adenopathy by size criteria. Aorta and inferior vena cava are normal in size. Bowel and peritoneum: Unenhanced bowel loops are normal in caliber. No free fluid. There is a small hiatal hernia. Lung bases: No basal pleural effusions. Heart size is normal. Bones and soft tissues: No ventral hernias. Bone marrow is of normal overall signal. IMPRESSION: Status post cholecystectomy. Mild dilatation of the extrahepatic and central intrahepatic biliary ducts are likely related to the prior cholecystectomy. No focal filling defect or stenosis is seen. Dictated by: Alonso Robert M.D. on 11/14/2019 at 15:43 Approved by: Alonso Robert M.D. on 11/14/2019 at 15:51 Chest x-ray: Radiologist's Impression: [address] [place] [id number] XRay Report Signed Patient: Oxana Spencer LMR#: [id number] : 8Acct:[id number] Age/Sex: 84 / FDate of Service: 11/14/19 Loc: ED Accession Number: [id number] Procedure: XR chest 1V Ordering Provider: Janie Mcmahon MD PROCEDURE: XR CHEST 1V INDICATIONS: chest pain TECHNIQUE: One view of the chest was acquired. COMPARISON: [facility], CR, XR CHEST 1V, 01/20/2018, 17:22. FINDINGS: Surgical changes and devices: None. Lungs and pleura: Lungs are clear. No pleural effusions or pneumothorax. Mediastinum: Mediastinal contours appear normal. Heart size is normal. Bones and chest wall: No suspicious bony lesions. Overlying soft tissues appear unremarkable. IMPRESSION: No acute cardiopulmonary pathology. Dictated by: Mitch Johnson M.D. on 11/14/2019 at 12:55 Approved by: Mitch Johnson M.D. on 11/14/2019 at 12:56 ECG Data Attestation: I personally reviewed and interpreted this ECG as follows: Interpretation: Sinus rhythm. Ventricular rate 66. P.r. interval 194. QRS 85. viewed by Dr Mcmahon MDM Narrative Medical decision making narrative: The patient is an 84-year-old female who presents with a chief complaint of a band across her chest underneath her bra. Her initial troponin is negative, normal EKG noted. On her initial set of lab work, is noted that her LFTs were very elevated. She has history of a cholecystectomy, so an MRCP was obtained. This had no gross acute findings, normal bili room was noted. I spoke with Dr. Matias regarding the patient, who states that he believes it is a medical issue of a surgical issue. I spoke with Dr. Mcmahon regarding this patient several times throughout her stay in the emergency department. The patient's repeat troponin came back negative. Thus given my conversation with Dr. Matias, her LFT is elevated at felt to be more of a hepatitis or drug reaction. I spoke with Dr. Hernandez, on-call for the patient's primary care provider who states that they will follow up with patient tomorrow to help arrange for further evaluation and lab work. The patient declined any medications for pain or nausea throughout her stay in the emergency department. She denies any current pain, states that she does not want any pain prescriptions. She has been well appearing and nontoxic appearing throughout her stay in the emergency department. Patient has no questions or concerns upon discharge and states understanding of return precautions as well as follow-up care. <Janie Mcmahon MD - Last Filed: 11/22/19 08:25> Lab Data Labs: Lab Results 11/14/19 11/14/19 11/14/19 Range/Units 13:27 13:27 13:27 WBC 3.9 L (4.5-11.0) X10^3/uL RBC 4.52 (4.0-5.2) X10^6/uL Hgb 13.6 (12.0-16.0) g/dL Hct 42.0 (36-46) % MCV 92.8 (80-100) fL MCH 30.1 (26-34) PG MCHC 32.5 (30-36) % RDW 14.4 (11.6-14.8) % Plt Count 257 (150-400) X10^3/uL Neut % (Auto) 74.8 (50-75) % Lymph % (Auto) 14.5 L (25-40) % [place] % (Auto) 8.9 (3-14) % Eos % (Auto) 1.1 L (2-4) % Baso % (Auto) 0.7 (0-2) % Neut # (Auto) 2900 (2940-1486) /uL Lymph # (Auto) 600 L (8356-7301) /uL [place] # (Auto) 300 (0-900) /uL Eos # (Auto) 0 (0-450) /uL Baso # (Auto) 0 (0-100) /uL PT 37.8 H (10.1-12.7) SECONDS INR 3.3 H (0.9-1.3) APTT 43 H D (26.4-36.2) SECONDS Sodium 139 (137-145) mmol/L Potassium 4.2 (3.4-5.1) mmol/L Chloride 107 (98-107) mmol/L Carbon Dioxide 32 (22-32) mmol/L BUN 16 (7-17) mg/dL Creatinine 0.86 (0.52-1.04) mg/dL Estimated GFR > 60.0 (>60) mL/min BUN/Creatinine Ratio 18.6 (6-22) Glucose 99 (80-110) mg/dL Calcium 8.7 (8.4-10.2) mg/dL Magnesium 2.0 (1.6-2.3) mg/dL Total Bilirubin 0.9 (0.2-1.3) mg/dL AST 718 H (14-36) IU/L ALT 382 H (<35) IU/L Alkaline Phosphatase 156 H (38-126) U/L Total Creatine Kinase 55 (30-135) U/L CK-MB (CK-2) TNP CK-MB (CK-2) Rel Index TNP Troponin I < 0.012 (0.01-0.034) ng/mL Total Protein 6.5 (6.3-8.2) g/dL Albumin 4.0 (3.5-5.0) g/dL Globulin 2.5 (1.7-4.1) g/dL Albumin/Globulin Ratio 1.6 (1.0-2.8) Lipase 112 (23-300) U/L Urine RBC (0-5/HPF) Urine WBC (0-5/HPF) Ur Squamous Epith Cells (0-5/HPF) Urine Bacteria (None) Ur Culture Indicated? 11/14/19 11/14/19 Range/Units 15:33 16:32 WBC (4.5-11.0) X10^3/uL RBC (4.0-5.2) X10^6/uL Hgb (12.0-16.0) g/dL Hct (36-46) % MCV (80-100) fL MCH (26-34) PG MCHC (30-36) % RDW (11.6-14.8) % Plt Count (150-400) X10^3/uL Neut % (Auto) (50-75) % Lymph % (Auto) (25-40) % [place] % (Auto) (3-14) % Eos % (Auto) (2-4) % Baso % (Auto) (0-2) % Neut # (Auto) (3549-2090) /uL Lymph # (Auto) (6643-2324) /uL [place] # (Auto) (0-900) /uL Eos # (Auto) (0-450) /uL Baso # (Auto) (0-100) /uL PT (10.1-12.7) SECONDS INR (0.9-1.3) APTT (26.4-36.2) SECONDS Sodium (137-145) mmol/L Potassium (3.4-5.1) mmol/L Chloride (98-107) mmol/L Carbon Dioxide (22-32) mmol/L BUN (7-17) mg/dL Creatinine (0.52-1.04) mg/dL Estimated GFR (>60) mL/min BUN/Creatinine Ratio (6-22) Glucose (80-110) mg/dL Calcium (8.4-10.2) mg/dL Magnesium (1.6-2.3) mg/dL Total Bilirubin (0.2-1.3) mg/dL AST (14-36) IU/L ALT (<35) IU/L Alkaline Phosphatase (38-126) U/L Total Creatine Kinase 48 (30-135) U/L CK-MB (CK-2) TNP CK-MB (CK-2) Rel Index TNP Troponin I < 0.012 (0.01-0.034) ng/mL Total Protein (6.3-8.2) g/dL Albumin (3.5-5.0) g/dL Globulin (1.7-4.1) g/dL Albumin/Globulin Ratio (1.0-2.8) Lipase (23-300) U/L Urine RBC None seen (0-5/HPF) Urine WBC 1-5/hpf (0-5/HPF) Ur Squamous Epith Cells 0-1 /hpf (0-5/HPF) Urine Bacteria Few (2-10) H (None) Ur Culture Indicated? Specimen cultured Urine Dip Bedside Urine Glucose Negative Bedside Urine Bilirubin - Negative Bedside Urine Ketone - Negative Urine Specific Buhler 1.015 Bedside Urine Occult Blood - Negative Bedside Urine pH 6.0 Bedside Urine Protein - Negative Bedside Urine Urobilinogen - Negative Bedside Urine Nitrite - Negative Bedside Urine Leukocytes ++ 125 Esterase Discharge Plan Departure Patient Disposition: Home Clinical Impression: Epigastric abdominal pain, Elevated LFTs Discharge Date/Time: 11/14/19 18:40 Instructions: DI for Abdominal Pain-Adult, Liver Function Tests Activity Restrictions/Additional Instructions: Thank you for trusting us with your care today As I discussed, both cardiac sets of labs came back well. However your liver enzymes were elevated. The MRI we did of your abdomen came back with no acute findings. I spoke with surgery today regarding your scans and labs, and he believes it is a medical issue. I spoke with Dr. Hernandez, who is going to have your primary care provider's nurse call you tomorrow to help arrange follow-up. Of note your INR was slightly elevated today of 3.3 Please come back to the emergency department for any acute concerns Prescriptions: No Action esomeprazole magnesium [Nexium] 40 mg capsule,delayed release(DR/EC) 40 mg PO BID RF: 0 alprazolam 0.25 mg tablet 0.25 mg PO DAILY RF: 0 cyanocobalamin (vitamin B-12) [Vitamin B-12] 1,000 mcg tablet 1,000 mcg PO DAILY RF: 0 multivitamin tablet 1 tab PO DAILY Qty: 30 RF: 0 trazodone 50 mg tablet 50 mg PO BEDTIME PRN (Reason: insomnia) Qty: 30 RF: 0 calcium carbonate 500 mg calcium (1,250 mg) capsule 500 mg PO BID Qty: 60 RF: 0 niacin 50 mg tablet 50 mg PO BID Qty: 60 RF: 0 arginine (L-arginine) 500 mg capsule 500 mg PO .QHS Qty: 30 RF: 0 cholecalciferol (vitamin D3) 400 unit capsule 400 unit PO DAILY Qty: 30 RF: 0 FISH OIL 1,200 mg 1,200 mg PO .QD Qty: 30 RF: 0 warfarin 5 mg tablet 5 mg PO DAILY Qty: 90 RF: 3 nefazodone 250 mg tablet 500 mg PO BEDTIME RF: 0 colesevelam [WelChol] 625 mg tablet 2 tab PO BID RF: 0 ezetimibe 10 mg tablet 5 mg PO DAILY RF: 0 Referrals: Evita Jarvis DO [Primary Care Provider] - <Janie Mcmahon MD - Last Filed: 11/22/19 08:25> [facility] I was immediately available in the department for consultation throughout this patient's visit. I agree with documentation as above. Janie Mcmahon MD
[2019-11-14 16:50] LABS: Creatine Kinase 48 U/L (30-135)
[2019-11-14 17:03] LABS: Troponin I < 0.012 ng/mL (0.01-0.034)
== END 2019-11-14 18:40 | disposition home or self-care (01) ==
PROVIDERS: Emergency Medicine; Emergency Provider Nurse Practitioner Family; PCP Family Medicine
DX: R10.13 Epigastric pain (principal); R79.89 Other specified abnormal findings of blood chemistry; R07.89 Other chest pain
CPT/HCPCS: 36415; 71045; 74181; 80053; 81003; 81015; 82550; 83690; 83735; 84484; 85025; 85610; 85730; 87086; 93005; 99283; 99284

== ENCOUNTER → 2019-11-18 12:22 | Outpatient (CLI) | payer MEDICARE, OTHER, SELFPAY ==
[2019-11-18 15:00] LABS: Alanine Aminotransferase 110 IU/L (<35); Albumin Globulin Ratio 1.7 (1.0-2.8); Alkaline Phosphatase 102 U/L (38-126); Aspartate Aminotransferase 47 IU/L (14-36); BUN Creatinine Ratio 20.9 (6-22); Bilirubin Total 0.8 mg/dL (0.2-1.3); Blood Urea Nitrogen 18 mg/dL (7-17); Carbon Dioxide 28 mmol/L (22-32); Chloride 105 mmol/L (98-107); Estimated Glomerular Filt Rate > 60.0 mL/min (>60); Globulin 2.3 g/dL (1.7-4.1); Glucose 69 mg/dL (80-110); HEMOLYSIS < 15 (0-50); Potassium 4.7 mmol/L (3.4-5.1); Sodium 136 mmol/L (137-145); Total Protein 6.3 g/dL (6.3-8.2)
== END ==
PROVIDERS: PCP Family Medicine; Referring Provider Family Medicine; Visit Provider Family Medicine
DX: R79.89 Other specified abnormal findings of blood chemistry (principal)
CPT/HCPCS: 36415; 80053

== ENCOUNTER → 2019-12-09 11:16 | Outpatient (CLI) | payer MEDICARE, OTHER, SELFPAY ==
[2019-12-09 11:57] LABS: INR 2.2 (0.9-1.3); Prothrombin Time 24.7 SECONDS (10.1-12.7)
[2019-12-09 12:07] LABS: Alanine Aminotransferase 32 IU/L (<35); Albumin Globulin Ratio 1.5 (1.0-2.8); Alkaline Phosphatase 86 U/L (38-126); Aspartate Aminotransferase 44 IU/L (14-36); BUN Creatinine Ratio 24.4 (6-22); Bilirubin Total 0.9 mg/dL (0.2-1.3); Blood Urea Nitrogen 21 mg/dL (7-17); Carbon Dioxide 27 mmol/L (22-32); Chloride 106 mmol/L (98-107); Estimated Glomerular Filt Rate > 60.0 mL/min (>60); Globulin 2.6 g/dL (1.7-4.1); Glucose 84 mg/dL (80-110); HEMOLYSIS 17 (0-50); Potassium 4.3 mmol/L (3.4-5.1); Sodium 138 mmol/L (137-145); Total Protein 6.6 g/dL (6.3-8.2)
== END ==
PROVIDERS: PCP Family Medicine; Referring Provider Family Medicine; Visit Provider Family Medicine
DX: R79.89 Other specified abnormal findings of blood chemistry (principal); D68.52 Prothrombin gene mutation; I82.402 Acute embolism and thrombosis of unspecified deep veins of left lower extremity
CPT/HCPCS: 36415; 80053; 85610

== ENCOUNTER → 2020-01-11 10:31 | Outpatient (CLI) | payer MEDICARE, OTHER, SELFPAY ==
--- NOTE | 2020-01-11 10:33 | DI.RAD.S_ITS ---
PROCEDURE: XR TIBIA FIBULA RT 2V INDICATIONS: nodule on anterior bustillo TECHNIQUE: 2 views of the tibia and fibula were acquired. COMPARISON: None. FINDINGS: Bones: No fractures or dislocations. No suspicious bony lesions. Soft tissues: 5 millimeter dystrophic calcification projects over the soft tissues anterior to the lower tibia. IMPRESSION: 1. No osseous lesion. 2. 5 millimeter dystrophic calcification. If symptoms and/or clinical suspicion for pathology persists, further assessment with repeat radiographs (7-10 days) or advanced imaging (e.g. CT, MRI or bone scan) may be helpful. Dictated by: Cherelle Bustillos MD, PhD on 01/11/2020 at 16:57 Approved by: Cherelle Bustillos MD, PhD on 01/11/2020 at 16:59
== END ==
PROVIDERS: PCP Family Medicine; Referring Provider Family Medicine; Visit Provider Family Medicine
DX: R22.42 Localized swelling, mass and lump, left lower limb (principal)
CPT/HCPCS: 73590

== ENCOUNTER → 2020-07-18 13:37 | Outpatient (CLI) | payer MEDICARE, OTHER, SELFPAY | PROVIDERS: PCP Family Medicine; Visit Provider Student in an Organized Health Care Education/Training Program | DX: N34.3 Urethral syndrome, unspecified (principal) | CPT/HCPCS: 87077; 87086; 87186 ==

== ENCOUNTER → 2020-08-06 11:48 | Outpatient (CLI) | payer MEDICARE, OTHER, SELFPAY | PROVIDERS: PCP Family Medicine; Visit Provider Family Medicine | DX: N39.0 Urinary tract infection, site not specified (principal) | CPT/HCPCS: 87077; 87086 ==

== ENCOUNTER 2020-08-09 04:12 | Emergency (ER) | payer MEDICARE, OTHER, SELFPAY ==
[2020-08-09] VITALS (9 sets, daily range): BP systolic 110–138; BP diastolic 58–77; PULSE 56–77; RESP 14–26; TEMP 36.6; O2SAT 94–99
--- NOTE | 2020-08-09 04:21 | DI.RAD.S_ITS ---
PROCEDURE: XR CHEST 1V INDICATIONS: chest pain. TECHNIQUE: One view of the chest was acquired. COMPARISON: [facility], CR, XR CHEST 1V, 11/14/2019, 12:39. FINDINGS: Surgical changes and devices: None. Lungs and pleura: Lungs are clear. No pleural effusions or pneumothorax. Mediastinum: Mediastinal contours appear normal. Heart size is normal. Bones and chest wall: No suspicious bony lesions. Overlying soft tissues appear unremarkable. IMPRESSION: No acute cardiopulmonary disease process. Dictated by: Cherelle Bustillos MD, PhD on 08/09/2020 at 9:07 Approved by: Cherelle Bustillos MD, PhD on 08/09/2020 at 9:08
--- NOTE | 2020-08-09 04:22 | ED.CHESTPAIN ---
HPI - Chest Pain General Chief Complaint: Chest Pain Stated Complaint: Chest Pain Time Seen by Provider: 08/09/20 04:13 Source: patient and EMS Mode of arrival: EMS Limitations: no limitations History of Present Illness HPI narrative: This is an 85-year-old female comes emergency department with complaint of chest pain that is been present for 4-5 days. Patient states it has been present the entire time but waxing and waning in intensity. Patient states more on the left side of the chest but has started to radiate over to the right. Patient denies any fevers, no chills, no cough cold or congestion. This evening she woke up nauseated with some intensification of the chest pain. She has not had any emesis. Patient denies any abdominal, back or flank pain. Patient denies any diarrhea or constipation. She denies any urinary symptoms. Patient denies any new pain or swelling in her extremities. Patient does have a history significant for DVT most recently 2 or 3 years ago and prior to that about 20 years ago. Patient states that she has been on warfarin and her last several INRs have been therapeutic. She states she does take a medication for cholesterol and several vitamins. She states that she had surgery on her stomach. She describes having them wrapped the stomach and the loosen it. I suspect she had a Remi fundoplication but she is unsure of the name. She has also had hysterectomy, cholecystectomy and knee surgery in the past. Any tobacco, alcohol or illicit. She states she cannot take narcotics she states they make her esophagus spasm. Related Data Home Medications Medication Instructions Recorded Confirmed alprazolam 0.25 mg tablet 0.25 mg PO DAILY 08/20/17 02/01/20 cyanocobalamin (vitamin B-12) 1,000 mcg PO DAILY 08/20/17 02/01/20 1,000 mcg tablet esomeprazole magnesium 40 mg 40 mg PO BID cap 12/28/17 02/01/20 capsule,delayed release colesevelam [WelChol] 2 tab PO BID 01/20/18 02/01/20 ezetimibe 5 mg PO DAILY 02/07/19 02/01/20 Previous Rx's Medication Instructions Recorded FISH OIL 1,200 mg PO .QD #30 08/28/17 arginine (L-arginine) 500 mg 500 mg PO .QHS #30 cap 08/28/17 capsule calcium carbonate 500 mg calcium 500 mg PO BID #60 cap 08/28/17 (1,250 mg) capsule cholecalciferol (vitamin D3) 10 400 unit PO DAILY #30 cap 08/28/17 mcg (400 unit) capsule multivitamin 1 tab PO DAILY #30 tab 08/28/17 warfarin 5 mg tablet See Rx Instructions PO DAILY #90 03/07/20 tab Allergies Allergy/AdvReac Type Severity Reaction Status Date / Time Sulfa (Sulfonamide Allergy Severe TROUBLE Verified 07/18/20 13:58 Antibiotics) BREATHING [SULFA (SULFONAMIDE ANTIBIOTICS)] morphine [MORPHINE] Allergy Unknown Verified 07/18/20 13:58 Penicillins [PENICILLINS] Allergy Unknown Verified 07/18/20 13:58 nitrofurantoin AdvReac Intermediate elevated Verified 07/18/20 13:58 liver enzymes Review of Systems Review of Systems ROS Unobtainable: All systems reviewed & are unremarkable except as noted in HPI and below Patient History Medical History Anemia Anxiety Asthma Asymptomatic carotid artery stenosis (05/25/15) BCC (basal cell carcinoma of skin) (2010) Bronchiectasis Carpal tunnel syndrome, right (2014) Cataract Chicken pox Colon polyps (1991) Depression Eczema Elevated LFTs Fibroids (1994) Gastroesophageal reflux disease (1997) Hayfever Hiatal hernia Hyperlipidemia (01/08/15) Insomnia Lactose intolerance in adult (10/20/16) Left leg DVT (1994) 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) Measles Painful menstrual periods Peptic ulcer disease (1982) Plantar warts (1951) Plantar warts 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) Thyroid nodule (05/24/15) Tubular adenoma of colon (~04/2016) Whiplash injury Surgical History Anesthesia History of cataract removal with insertion of prosthetic lens (03/22/14) History of cataract removal with insertion of prosthetic lens (04/12/14) History of fundoplication (2000) History of phacoemulsification of cataract of left eye with intraocular lens implantation (04/12/14) History of phacoemulsification of cataract of right eye with intraocular lens implantation (03/22/14) History of tonsillectomy (~1942) Status post appendectomy Status post cholecystectomy Status post hysterectomy (1995) Status post knee surgery (1994) Family History Son Age: 60 CAD (coronary artery disease) Heart attack Son Age: 55 Prostate cancer Father Heart disease Cardiac aneurysm Sister Age: 79 Malignant neoplasm of female breast, unspecified laterality, unspecified site of breast Brother No problems noted. Son No problems noted. Grandfather Heart attack Grandmother Cancer Mother Ovarian cancer Social History Smoking Status: Never smoker Smoking Status: Never smoker alcohol intake frequency: 0-2 drinks per day Substance Use Type: does not use Exam Narrative Exam Narrative: GENERAL: Alert and oriented x three, well-nourished elderly female in mild distress. HEENT: Head normocephalic, atraumatic, EOMI, pupils reactive, face symmetric, moist mucous membranes NECK: Supple, full range of motion CARDIOVASCULAR: Regular rate and rhythm without murmurs, rubs or gallops. No JVD. No swelling bilateral lower extremities. RESPIRATORY: Breath sounds equal bilaterally, no wheezes rales or rhonchi. No tachypnea accessory muscle use. Patient speaks in full sentences. ABDOMEN: Soft, nontender. Normoactive bowel sounds all 4 quadrants. No guarding or rebound, rigidity, no mass : No CVA tenderness EXTREMITIES: Normal range of motion, no clubbing or edema. Neurovascularly intact NEUROLOGICAL: Cranial nerves II through XII grossly intact. Moving all extremities SKIN: Warm, dry, no petechiae, no rashes or lesions. Initial Vital Signs Initial Vital Signs: Vital Signs Temperature 98 F 08/09/20 04:10 Pulse Rate 76 08/09/20 04:10 Respiratory Rate 20 08/09/20 04:10 Blood Pressure 132/69 08/09/20 04:10 Pulse Oximetry 99 08/09/20 04:10 Course Orders Ordered: ED Orders 08/09/20 04:21 XR chest 1V Stat EKG-12 Lead Stat 08/09/20 04:25 Complete Blood Count AUTO DIFF Stat Comprehensive Metabolic Panel Stat Lipase Stat NT-proBNP (BNP-Adult 18+) Stat Partial Thromboplastin Time Stat Prothrombin Time INR Stat Troponin & CK Cardiac Panel Stat 08/09/20 05:33 CT angio chest PE protocol Stat Discontinued Medications Aspirin (Aspirin 81 Mg Chew Tab) 324 mg PO NOW ONE Stop: 08/09/20 04:21 Last Admin: 08/09/20 04:34 Dose: Not Given Documented by: JOSE Sodium Chloride (Normal Saline 0.9%) 1,000 mls @ 150 mls/hr IV CONT ELLEN Last Admin: 08/09/20 04:38 Dose: 150 mls/hr Documented by: JOSE Pantoprazole Sodium (Pantoprazole 40 Mg Vial) 40 mg IV NOW ONE Stop: 08/09/20 05:34 Last Admin: 08/09/20 05:39 Dose: 40 mg Documented by: JOSE Reevaluation(s) Reevaluation #1: Patient feels the same. She discussed today's findings. Patient states nitro made small amount of change in the field. She does not want any narcotics here because they make her sick. With 5 days of symptoms without break I would expect elevation of troponin or change in EKG. She does have a history of DVTs and has had intermittently therapeutic warfarin although her vital signs appear stable here discussed CT angio to rule out PE. Patient is agreeable to this. Time: 05:36 Reevaluation #2: Reviewed patient's CTA, shows an aberrant vessel but no other clear changes. She does have some spondylitic changes of the thoracic spine on discussion we do not have a clear cause of her symptoms but does not appear any emergent symptoms she does have follow-up with Cardiology. We also discussed possibly being evaluated with EGD patient feels comfortable turning home. She defers any medications for discomfort at home. Time: 06:31 Vital Signs Vital signs: Vital Signs - 8 hr 08/09/20 04:10 08/09/20 04:17 08/09/20 04:21 Temperature 98 F Pulse Rate 76 77 73 Respiratory Rate 20 14 17 Blood Pressure 132/69 132/69 Pulse Oximetry 99 94 94 08/09/20 04:30 08/09/20 05:00 08/09/20 05:30 Temperature Pulse Rate 71 65 61 Respiratory Rate 14 20 19 Blood Pressure 110/58 L 110/62 115/65 Pulse Oximetry 96 94 96 08/09/20 05:57 08/09/20 06:00 08/09/20 06:30 Temperature Pulse Rate 56 L 56 L 60 Respiratory Rate 18 20 26 H Blood Pressure 127/77 132/63 138/75 Pulse Oximetry 98 97 96 MDM - Chest Pain Lab Data Attestation: I reviewed the patient's lab results. Result diagrams: 08/09/20 04:25 08/09/20 04:25 Labs: Lab Results 08/09/20 08/09/20 08/09/20 Range/Units 04:25 04:25 04:25 WBC 4.8 (4.5-11.0) X10^3/uL RBC 4.71 (4.0-5.2) X10^6/uL Hgb 14.1 (12.0-16.0) g/dL Hct 42.9 (36-46) % MCV 91.1 (80-100) fL MCH 30.0 (26-34) PG MCHC 32.9 (30-36) % RDW 14.6 (11.6-14.8) % Plt Count 260 (150-400) X10^3/uL Neut % (Auto) 51.9 (50-75) % Lymph % (Auto) 32.3 (25-40) % Dickens % (Auto) 10.5 (3-14) % Eos % (Auto) 3.7 (2-4) % Baso % (Auto) 1.6 (0-2) % Neut # (Auto) 2500 (7740-4947) /uL Lymph # (Auto) 1500 (0183-5038) /uL Dickens # (Auto) 500 (0-900) /uL Eos # (Auto) 200 (0-450) /uL Baso # (Auto) 100 (0-100) /uL PT 25.5 H (10.1-12.7) SECONDS INR 2.2 H (0.9-1.3) APTT 41 H (26.4-36.2) SECONDS Sodium (137-145) mmol/L Potassium (3.4-5.1) mmol/L Chloride (98-107) mmol/L Carbon Dioxide (22-32) mmol/L BUN (7-17) mg/dL Creatinine (0.52-1.04) mg/dL Estimated GFR (>60) mL/min BUN/Creatinine Ratio (6-22) Glucose (80-110) mg/dL Calcium (8.4-10.2) mg/dL Total Bilirubin (0.2-1.3) mg/dL AST (14-36) IU/L ALT (<35) IU/L Alkaline Phosphatase (38-126) U/L Total Creatine Kinase (30-135) U/L CK-MB (CK-2) CK-MB (CK-2) Rel Index Troponin I (0.01-0.034) ng/mL NT-Pro-B Natriuret Pep 145 (<450) pg/mL Total Protein (6.3-8.2) g/dL Albumin (3.5-5.0) g/dL Globulin (1.7-4.1) g/dL Albumin/Globulin Ratio (1.0-2.8) Lipase (23-300) U/L // Range/Units 04:25 WBC (4.5-11.0) X10^3/uL RBC (4.0-5.2) X10^6/uL Hgb (12.0-16.0) g/dL Hct (36-46) % MCV (80-100) fL MCH (26-34) PG MCHC (30-36) % RDW (11.6-14.8) % Plt Count (150-400) X10^3/uL Neut % (Auto) (50-75) % Lymph % (Auto) (25-40) % Dickens % (Auto) (3-14) % Eos % (Auto) (2-4) % Baso % (Auto) (0-2) % Neut # (Auto) (7823-4107) /uL Lymph # (Auto) (4455-2262) /uL Dickens # (Auto) (0-900) /uL Eos # (Auto) (0-450) /uL Baso # (Auto) (0-100) /uL PT (10.1-12.7) SECONDS INR (0.9-1.3) APTT (26.4-36.2) SECONDS Sodium 141 (137-145) mmol/L Potassium 3.9 (3.4-5.1) mmol/L Chloride 110 H (98-107) mmol/L Carbon Dioxide 27 (22-32) mmol/L BUN 18 H (7-17) mg/dL Creatinine 0.78 (0.52-1.04) mg/dL Estimated GFR > 60.0 (>60) mL/min BUN/Creatinine Ratio 23.1 H (6-22) Glucose 105 (80-110) mg/dL Calcium 9.2 (8.4-10.2) mg/dL Total Bilirubin 1.0 (0.2-1.3) mg/dL AST 36 (14-36) IU/L ALT 26 (<35) IU/L Alkaline Phosphatase 100 (38-126) U/L Total Creatine Kinase 60 (30-135) U/L CK-MB (CK-2) TNP CK-MB (CK-2) Rel Index TNP Troponin I < 0.012 (0.01-0.034) ng/mL NT-Pro-B Natriuret Pep (<450) pg/mL Total Protein 6.5 (6.3-8.2) g/dL Albumin 3.9 (3.5-5.0) g/dL Globulin 2.6 (1.7-4.1) g/dL Albumin/Globulin Ratio 1.5 (1.0-2.8) Lipase 53 (23-300) U/L Imaging Data Chest x-ray: Attestation: I personally reviewed and interpreted this imaging study as follows: My Impression: nap CT scan - chest: Radiologist's Impression: No pulmonary emboli, no aortic dissection. No pulmonary nodule pulmonary infiltrate. 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 No adenopathy. Central airways are patent. Small hiatal hernia. Multilevel spondylitic changes of the thoracic spine. ECG Data Attestation: I personally reviewed and interpreted this ECG as follows: Prior ECG tracings: available for review Interpretation: Sinus rhythm rate of 73 P are 22, QRS is 72 and QTC of 429. Patient has acute 2, 3 and AVF with some slightly depressed T-wave in lead 3. No other elevation or depression appreciated. Nonspecific change. Patient has prior EKG from 11/14/2019 which appears similar. [facility] Narrative Medical decision making narrative: This is an 85-year-old female comes in with left-sided chest pain that began radiating to the right side of her chest and developed nausea overnight. She has had 5 days of symptoms have not relented but have been intermittent in their intensity. Patient's troponin is negative. Her EKG does not show acute changes and she has a prior for comparison from 2019 with no new changes. Her labs do not show any acute changes to pancreatic enzymes, chest x-ray does not show any major changes. Patient does have some risk factors for PE with past DVT is recently as 2 years ago and chronically anticoagulated on warfarin with occasional subtherapeutic levels. CTA of the chest was ordered noted there is no apparent blood vessel on but this is unlikely cause of her symptoms. Patient also noted to have some spondylitic changes thoracic spine but she does not have increased symptoms with rotation or movement or reproducible symptoms. Discussed with patient due feels appropriate for her to follow-up with cardiology which she has in process. She also has not had evaluation with EGD this may also be helpful for her. She did not have much improvement with the Protonix here but she defers any additional medication and prefers to return home at this time. Discharge Plan Departure Patient Disposition: Home Clinical Impression: Atypical chest pain Instructions: DI for Atypical Chest Pain Activity Restrictions/Additional Instructions: Follow up with your physician in the next several days. Call for an appointment. You may continue your medications as prescribed. I do not have a clear cause of your symptoms today, with a negative troponin with no new EKG changes and a normal CT angio of the chest my suspicion for cardiac or pulmonary or embolic cause is low. Please return for fevers greater than 100.4F, there worsening chest pain or pressure, shortness of breath, lightheadedness or passing out, persistent vomiting, black or bloody stools or other new or concerning symptoms. Prescriptions: No Action warfarin 5 mg tablet See Rx Instructions PO DAILY Qty: 90 RF: 3 esomeprazole magnesium [Nexium] 40 mg capsule,delayed release(DR/EC) 40 mg PO BID RF: 0 alprazolam 0.25 mg tablet 0.25 mg PO DAILY RF: 0 cyanocobalamin (vitamin B-12) [Vitamin B-12] 1,000 mcg tablet 1,000 mcg PO DAILY RF: 0 multivitamin tablet 1 tab PO DAILY Qty: 30 RF: 0 calcium carbonate 500 mg calcium (1,250 mg) capsule 500 mg PO BID Qty: 60 RF: 0 arginine (L-arginine) 500 mg capsule 500 mg PO .QHS Qty: 30 RF: 0 cholecalciferol (vitamin D3) 400 unit capsule 400 unit PO DAILY Qty: 30 RF: 0 FISH OIL 1,200 mg 1,200 mg PO .QD Qty: 30 RF: 0 colesevelam [WelChol] 625 mg tablet 2 tab PO BID RF: 0 ezetimibe 10 mg tablet 5 mg PO DAILY RF: 0 Referrals: Evita Jarvis DO [Primary Care Provider] -
[2020-08-09] MEDS: SODIUM CHLORIDE 0.9% 1,000 ML 150 ML IV (04:38)
[2020-08-09 04:45] LABS: INR 2.2 (0.9-1.3); Prothrombin Time 25.5 SECONDS (10.1-12.7)
[2020-08-09 04:47] LABS: Add Manual Diff / Slide Review NO; Basophils Absolute Auto 100 /uL (0-100); Basophils Percent Auto 1.6 % (0-2); Eosinophils Absolute Auto 200 /uL (0-450); Eosinophils Percent Auto 3.7 % (2-4); Hematocrit 42.9 % (36-46); Hemoglobin 14.1 g/dL (12.0-16.0); Lymphocytes Absolute Auto 1500 /uL (1100-4500); Lymphocytes Percent Auto 32.3 % (25-40); Mean Corpuscular HGB Conc 32.9 % (30-36); Mean Corpuscular Volume 91.1 fL (80-100); Monocytes Absolute Auto 500 /uL (0-900); Monocytes Percent Auto 10.5 % (3-14); Neutrophils Absolute Auto 2500 /uL (1500-7000); Neutrophils Percent Auto 51.9 % (50-75); Platelet Count 260 X10^3/uL (150-400); Red Blood Cell Count 4.71 X10^6/uL (4.0-5.2); Red Cell Distribution Width 14.6 % (11.6-14.8); White Blood Cell Count 4.8 X10^3/uL (4.5-11.0)
[2020-08-09 04:48] LABS: PTT Partial Thromboplastin Tim 41 SECONDS (26.4-36.2)
[2020-08-09 04:56] LABS: Alanine Aminotransferase 26 IU/L (<35); Albumin 3.9 g/dL (3.5-5.0); Albumin Globulin Ratio 1.5 (1.0-2.8); Alkaline Phosphatase 100 U/L (38-126); Aspartate Aminotransferase 36 IU/L (14-36); BUN Creatinine Ratio 23.1 (6-22); Blood Urea Nitrogen 18 mg/dL (7-17); Calcium 9.2 mg/dL (8.4-10.2); Carbon Dioxide 27 mmol/L (22-32); Chloride 110 mmol/L (98-107); Creatine Kinase 60 U/L (30-135); Estimated Glomerular Filt Rate > 60.0 mL/min (>60); Globulin 2.6 g/dL (1.7-4.1); Glucose 105 mg/dL (80-110); HEMOLYSIS < 15 (0-50); Lipase 53 U/L (23-300); Potassium 3.9 mmol/L (3.4-5.1); Sodium 141 mmol/L (137-145); Total Protein 6.5 g/dL (6.3-8.2)
[2020-08-09 05:05] LABS: NT-proBNP (BNP-Adult 18+) 145 pg/mL (<450)
[2020-08-09 05:07] LABS: Troponin I < 0.012 ng/mL (0.01-0.034)
--- NOTE | 2020-08-09 05:33 | DI.CT.S_ITS ---
PROCEDURE: CT ANGIO CHEST PE PROTOCOL INDICATIONS: chest pain, left side radiates to right, hx dvt TECHNIQUE: After the administration of intravenous contrast, 2 mm thick sections acquired from the pulmonary apices to the posterior costophrenic angles. 3-dimensional maximum intensity projection (MIP) coronal and sagittal reformats were then acquired through the thorax. For radiation dose reduction, the following was used: automated exposure control, adjustment of mA and/or kV according to patient size. COMPARISON: [facility], CT, CT ANGIO CHEST PE PROTOCOL, 11/17/2018, 20:39. FINDINGS: Image quality: Excellent. Pulmonary arteries: Pulmonary arteries are normal in size, and demonstrate no intraluminal filling defects to suggest central pulmonary embolism. Lungs and pleura: Lungs are clear. No pleural effusions or pneumothorax. Central and peripheral airways are patent. Mediastinum: Heart size is mildly enlarged, without pericardial effusion. No mediastinal or hilar adenopathy. Thoracic aorta is normal in caliber and enhancement. Esophagus is normal in caliber, with minimal hiatal hernia. 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 Bones and chest wall: No suspicious bony lesions. Ribs and thoracic spine appear intact throughout. Thyroid gland is unremarkable. No axillary or supraclavicular adenopathy. Abdomen: Visualized upper abdominal solid organs appear normal in the early arterial phase of enhancement. IMPRESSION: 1. No pulmonary embolism. 2. Lungs are clear. The above findings are concordant with preliminary report. Dictated by: Sirisha Mason M.D. on 08/09/2020 at 9:13 Approved by: Sirisha Mason M.D. on 08/09/2020 at 9:14
[2020-08-09] MEDS: PANTOPRAZOLE 40 MG VIAL IV (05:39)
--- NOTE | 2020-08-15 18:40 | PC.NURSE ---
Late entry, IV fluids discontinued at 0630.
== END 2020-08-09 06:39 | disposition home or self-care (01) ==
PROVIDERS: Emergency Provider Emergency Medicine; PCP Family Medicine
DX: R07.89 Other chest pain (principal); R11.0 Nausea
CPT/HCPCS: 36415; 71045; 71275; 80053; 82550; 83690; 83880; 84484; 85025; 85610; 85730; 93005; 96361; 96374; 99284; C9113; Q9967

== ENCOUNTER → 2020-08-23 13:57 | Outpatient (CLI) | payer MEDICARE, OTHER, SELFPAY ==
--- NOTE | 2020-08-23 13:59 | DI.US.S_ITS ---
PROCEDURE: US PERIPH VENOUS LOW EXTREM LT INDICATIONS: left lower leg pain TECHNIQUE: Real-time imaging, as well as color and pulse Doppler interrogation, were performed of the lower extremity deep veins from the inguinal ligament to the popliteal fossa. COMPARISON: [facility], CT, CT ANGIO CHEST PE PROTOCOL, 08/09/2020, 5:45. [facility], , PERIP VENOUS LOW EXTREM LT, 04/26/2018, 14:45. FINDINGS: The common femoral, femoral and popliteal veins are normally compressible, and free of intraluminal thrombus. Color and pulse Doppler demonstrate normal phasic intraluminal flow. There is normal augmentation response to distal compression maneuver. IMPRESSION: Negative for deep venous thrombosis. Dictated by: Julio Pina M.D. on 08/23/2020 at 13:45 Approved by: Julio Pina M.D. on 08/23/2020 at 13:45
== END ==
PROVIDERS: PCP Family Medicine; Referring Provider Registered Nurse; Visit Provider Registered Nurse
DX: M79.605 Pain in left leg (principal)
CPT/HCPCS: 93971

== ENCOUNTER 2020-11-10 02:25 | Emergency (ER) | payer MEDICARE, OTHER, SELFPAY ==
[2020-11-10 02:37] VITALS: BP 144/83; PULSE 64; RESP 18; TEMP 36.2; O2SAT 98
--- NOTE | 2020-11-10 02:50 | DI.RAD.S_ITS ---
PROCEDURE: XR CHEST 1V INDICATIONS: shaking chills, chest pain TECHNIQUE: One view of the chest was acquired. COMPARISON: [facility], CR, XR CHEST 1V, 08/09/2020, 4:24. FINDINGS: Surgical changes and devices: None. Lungs and pleura: Lungs are clear. No pleural effusions or pneumothorax. Mediastinum: Mediastinal contours appear normal. Heart size is normal. Bones and chest wall: No suspicious bony lesions. Overlying soft tissues appear unremarkable. IMPRESSION: No acute cardiopulmonary abnormality. Dictated by: Андрей Peoples M.D. on 11/10/2020 at 7:28 Approved by: Андрей Peoples M.D. on 11/10/2020 at 7:29
--- NOTE | 2020-11-10 02:51 | ED_ITS ---
HPI - Nausea/Vomiting/Diarrhea General Chief complaint: Nausea/Vomiting/Diarrhea Stated complaint: woke up shaking, nauseas, tingling Time Seen by Provider: 11/10/20 02:30 Source: patient Mode of arrival: Ambulatory Limitations: no limitations History of Present Illness HPI Narrative: 85-year-old female nonsmoker with history of carotid artery stenosis, hyperlipidemia, dyskinesia of esophagus, DVT on warfarin presents with her in the chief complaint of a few hours of shaking and shivering. She states that she was in her normal state of health all day yesterday and went to bed feeling totally normal. She woke up a few hours ago with chills as noted as well as fatigue, dizziness and lightheadedness and some anterior chest pressure. She states her chest discomfort has been persistent for the past few hours, she denies any provocation, palliation or radiation. She denies runny nose or sore throat. She denies any trouble breathing. She denies any nausea, vomiting or diarrhea. She has no trouble urinating such as dysuria, frequency or urgency. She denies any medication change. She denies any dietary change. Related Data Home Medications Medication Instructions Recorded Confirmed alprazolam 0.25 mg tablet 0.25 mg PO DAILY 08/20/17 08/21/20 cyanocobalamin (vitamin B-12) 1,000 mcg PO DAILY 08/20/17 08/21/20 1,000 mcg tablet (Vitamin B-12) esomeprazole magnesium 40 mg 40 mg PO BID cap 12/28/17 08/21/20 capsule,delayed release (Nexium) colesevelam 625 mg tablet (WelChol) 2 tab PO BID 01/20/18 08/21/20 melatonin 10 mg capsule 10 mg PO BEDTIME PRN 10/12/20 10/12/20 theanine 200 mg capsule 400 mg PO BID cap 10/12/20 10/12/20 Previous Rx's Medication Instructions Recorded FISH OIL 1,200 mg PO .QD #30 08/28/17 arginine (L-arginine) 500 mg 500 mg PO .QHS #30 cap 08/28/17 capsule calcium carbonate 500 mg calcium 500 mg PO BID #60 cap 08/28/17 (1,250 mg) capsule cholecalciferol (vitamin D3) 10 400 unit PO DAILY #30 cap 08/28/17 mcg (400 unit) capsule multivitamin 1 tab PO DAILY #30 tab 08/28/17 warfarin 5 mg tablet See Rx Instructions PO DAILY #90 03/07/20 tab ezetimibe 10 mg tablet 5 mg PO DAILY #30 tab 10/12/20 Allergies Allergy/AdvReac Type Severity Reaction Status Date / Time Sulfa (Sulfonamide Allergy Severe TROUBLE Verified 10/12/20 11:46 Antibiotics) BREATHING [SULFA (SULFONAMIDE ANTIBIOTICS)] morphine [MORPHINE] Allergy Unknown Verified 10/12/20 11:46 Penicillins [PENICILLINS] Allergy Unknown Verified 10/12/20 11:46 nitrofurantoin AdvReac Intermediate elevated Verified 10/12/20 11:46 liver enzymes Review of Systems Review of Systems Narrative: GENERAL: See HPI HEENT: Denies sinus pain, ear pain, sore throat, difficulty swallowing, dizziness. RESPIRATORY: Denies dyspnea, cough, wheezing, hemoptysis, sputum. CARDIOVASCULAR: See HPI GASTROINTESTINAL: Denies nausea, vomiting, abdominal pain, diarrhea, constipation, melena. : Denies dysuria, frequency, incontinence, hematuria, urinary retention. MUSCULOSKELETAL: denies weakness, joint pain, or bony pain SKIN: Denies rash, skin lesions, or other NEUROLOGIC: Denies weakness, headache, numbness, change in speech, confusion, seizures, incoordination. PSYCHIATRIC: No concerning psychosocial issues. 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 (05/08/15) Measles Painful menstrual periods Peptic ulcer disease (1982) Plantar warts (1951) Plantar warts 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) Thyroid nodule (05/24/15) Tubular adenoma of colon (~04/2016) Whiplash injury Surgical History Anesthesia History of cataract removal with insertion of prosthetic lens (03/22/14) History of cataract removal with insertion of prosthetic lens (04/12/14) History of fundoplication (2000) History of phacoemulsification of cataract of left eye with intraocular lens implantation (04/12/14) History of phacoemulsification of cataract of right eye with intraocular lens implantation (03/22/14) History of tonsillectomy (~1942) Status post appendectomy Status post cholecystectomy Status post hysterectomy (1995) Status post knee surgery (1994) Family History Son Age: 60 CAD (coronary artery disease) Heart attack Son Age: 55 Prostate cancer Father Heart disease Cardiac aneurysm Sister Age: 79 Malignant neoplasm of female breast, unspecified laterality, unspecified site of breast Brother No problems noted. Son No problems noted. Grandfather Heart attack Grandmother Cancer Mother Ovarian cancer Social History Smoking Status: Never smoker Smoking Status: Never smoker alcohol intake frequency: 0-2 drinks per day Substance Use Type: does not use Exam Narrative Exam Narrative: GENERAL: [85] year old patient appears stated age. Well-devel oped patient, in mild distress. HEAD: Atraumatic. Normocephalic. EYES: Pupils equal round and reactive. Extraocular motions intact. No scleral icterus. No injection or drainage. ENT: Nose without bleeding, purulent drainage. Throat without erythema, tonsillar hypertrophy or exudate. Airway patent. NECK: Trachea midline. Non tender CARDIOVASCULAR: Regular rate and rhythm without murmurs, gallops, or rubs. RESPIRATORY: Clear to auscultation. Breath sounds equal bilaterally. No wheezes, rales, or rhonchi. GASTROINTESTINAL: Abdomen soft, non-tender, nondistended. EXTREMITIES: No edema or joint tenderness. BACK: Nontender without deformity or crepitance. No flank tenderness. NEURO: AOx3. SKIN: No rash or erythema of visible areas Initial Vital Signs Initial Vital Signs: Vital Signs Temperature 97.1 F L 11/10/20 02:37 Pulse Rate 64 11/10/20 02:37 Respiratory Rate 18 11/10/20 02:37 Blood Pressure 144/83 H 11/10/20 02:37 Pulse Oximetry 98 11/10/20 02:37 Course Orders Ordered: Discontinued Medications Sodium Chloride (Normal Saline 0.9%) 1,000 mls @ 150 mls/hr IV CONT ELLEN Last Infusion: 11/10/20 07:31 Dose: 0 mls/hr Documented by: Admin: 11/10/20 03:09 Dose: 150 mls/hr Documented by: JOSE Ondansetron HCl (Ondansetron 4 Mg/2 Ml Inj) 4 mg IV NOW ONE Stop: 11/10/20 05:32 Last Admin: 11/10/20 05:36 Dose: 4 mg Documented by: JOSE Vital Signs Vital signs: Vital Signs - 8 hr 11/10/20 02:37 Temperature 97.1 F L Pulse Rate 64 Respiratory Rate 18 Blood Pressure 144/83 H Pulse Oximetry 98 MDM - Nausea/Vomiting/Diarrhea Lab Data Result diagrams: 11/10/20 03:20 11/10/20 03:20 Labs: Lab Results 11/10/20 11/10/20 11/10/20 Range/Units 03:20 03:20 03:20 WBC 4.8 (4.5-11.0) X10^3/uL RBC 4.74 (4.0-5.2) X10^6/uL Hgb 14.0 (12.0-16.0) g/dL Hct 43.3 (36-46) % MCV 91.4 (80-100) fL MCH 29.5 (26-34) PG MCHC 32.3 (30-36) % RDW 14.8 (11.6-14.8) % Plt Count 265 (150-400) X10^3/uL Neut % (Auto) 46.4 L (50-75) % Lymph % (Auto) 38.9 (25-40) % [place] % (Auto) 8.9 (3-14) % Eos % (Auto) 4.9 H (2-4) % Baso % (Auto) 0.9 (0-2) % Neut # (Auto) 2200 (0210-7076) /uL Lymph # (Auto) 1900 (4301-7617) /uL [place] # (Auto) 400 (0-900) /uL Eos # (Auto) 200 (0-450) /uL Baso # (Auto) 0 (0-100) /uL PT 29.3 H (10.1-12.7) SECONDS INR 2.6 H (0.9-1.3) Sodium 141 (137-145) mmol/L Potassium 4.0 (3.4-5.1) mmol/L Chloride 108 H (98-107) mmol/L Carbon Dioxide 28 (22-32) mmol/L BUN 19 H (7-17) mg/dL Creatinine 0.97 (0.52-1.04) mg/dL Estimated GFR 54.8 L (>60) mL/min BUN/Creatinine Ratio 19.6 (6-22) Glucose 109 (80-110) mg/dL Lactate (0.7-2.1) mmol/L Calcium 9.1 (8.4-10.2) mg/dL Total Bilirubin 0.7 (0.2-1.3) mg/dL AST 34 (14-36) IU/L ALT 28 (<35) IU/L Alkaline Phosphatase 125 (38-126) U/L Total Creatine Kinase (30-135) U/L CK-MB (CK-2) CK-MB (CK-2) Rel Index Troponin I (0.01-0.034) ng/mL Total Protein 6.8 (6.3-8.2) g/dL Albumin 3.9 (3.5-5.0) g/dL Globulin 2.9 (1.7-4.1) g/dL Albumin/Globulin Ratio 1.3 (1.0-2.8) Urine RBC (0-5/HPF) Urine WBC (0-5/HPF) Ur Squamous Epith Cells (0-5/HPF) Urine Bacteria (None) Ur Culture Indicated? SARS-CoV-2 (PCR) (Negative) 11/10/20 11/10/20 11/10/20 Range/Units 03:20 03:20 05:35 WBC (4.5-11.0) X10^3/uL RBC (4.0-5.2) X10^6/uL Hgb (12.0-16.0) g/dL Hct (36-46) % MCV (80-100) fL MCH (26-34) PG MCHC (30-36) % RDW (11.6-14.8) % Plt Count (150-400) X10^3/uL Neut % (Auto) (50-75) % Lymph % (Auto) (25-40) % [place] % (Auto) (3-14) % Eos % (Auto) (2-4) % Baso % (Auto) (0-2) % Neut # (Auto) (7214-5875) /uL Lymph # (Auto) (8180-2313) /uL [place] # (Auto) (0-900) /uL Eos # (Auto) (0-450) /uL Baso # (Auto) (0-100) /uL PT (10.1-12.7) SECONDS INR (0.9-1.3) Sodium (137-145) mmol/L Potassium (3.4-5.1) mmol/L Chloride (98-107) mmol/L Carbon Dioxide (22-32) mmol/L BUN (7-17) mg/dL Creatinine (0.52-1.04) mg/dL Estimated GFR (>60) mL/min BUN/Creatinine Ratio (6-22) Glucose (80-110) mg/dL Lactate 1.1 (0.7-2.1) mmol/L Calcium (8.4-10.2) mg/dL Total Bilirubin (0.2-1.3) mg/dL AST (14-36) IU/L ALT (<35) IU/L Alkaline Phosphatase (38-126) U/L Total Creatine Kinase 66 (30-135) U/L CK-MB (CK-2) TNP CK-MB (CK-2) Rel Index TNP Troponin I 0.023 0.022 (0.01-0.034) ng/mL Total Protein (6.3-8.2) g/dL Albumin (3.5-5.0) g/dL Globulin (1.7-4.1) g/dL Albumin/Globulin Ratio (1.0-2.8) Urine RBC (0-5/HPF) Urine WBC (0-5/HPF) Ur Squamous Epith Cells (0-5/HPF) Urine Bacteria (None) Ur Culture Indicated? SARS-CoV-2 (PCR) (Negative) 11/10/20 11/10/20 Range/Units 05:45 06:50 WBC (4.5-11.0) X10^3/uL RBC (4.0-5.2) X10^6/uL Hgb (12.0-16.0) g/dL Hct (36-46) % MCV (80-100) fL MCH (26-34) PG MCHC (30-36) % RDW (11.6-14.8) % Plt Count (150-400) X10^3/uL Neut % (Auto) (50-75) % Lymph % (Auto) (25-40) % [place] % (Auto) (3-14) % Eos % (Auto) (2-4) % Baso % (Auto) (0-2) % Neut # (Auto) (9571-5388) /uL Lymph # (Auto) (9964-8563) /uL [place] # (Auto) (0-900) /uL Eos # (Auto) (0-450) /uL Baso # (Auto) (0-100) /uL PT (10.1-12.7) SECONDS INR (0.9-1.3) Sodium (137-145) mmol/L Potassium (3.4-5.1) mmol/L Chloride (98-107) mmol/L Carbon Dioxide (22-32) mmol/L BUN (7-17) mg/dL Creatinine (0.52-1.04) mg/dL Estimated GFR (>60) mL/min BUN/Creatinine Ratio (6-22) Glucose (80-110) mg/dL Lactate (0.7-2.1) mmol/L Calcium (8.4-10.2) mg/dL Total Bilirubin (0.2-1.3) mg/dL AST (14-36) IU/L ALT (<35) IU/L Alkaline Phosphatase (38-126) U/L Total Creatine Kinase (30-135) U/L CK-MB (CK-2) CK-MB (CK-2) Rel Index Troponin I (0.01-0.034) ng/mL Total Protein (6.3-8.2) g/dL Albumin (3.5-5.0) g/dL Globulin (1.7-4.1) g/dL Albumin/Globulin Ratio (1.0-2.8) Urine RBC None seen (0-5/HPF) Urine WBC 0-1/hpf (0-5/HPF) Ur Squamous Epith Cells 1-5 /hpf (0-5/HPF) Urine Bacteria None seen (None) Ur Culture Indicated? Culture not indicate SARS-CoV-2 (PCR) Negative (Negative) Urine Dip Bedside Urine Glucose Negative Bedside Urine Bilirubin - Negative Bedside Urine Ketone - Negative Urine Specific Clements 1.015 Bedside Urine Occult Blood +/- Bedside Urine pH 6.0 Bedside Urine Protein - Negative Bedside Urine Urobilinogen - Negative Bedside Urine Nitrite - Negative Bedside Urine Leukocytes - Negative Esterase ECG Data Interpretation: EKG is normal sinus rhythm rate [65 ] and free of any signs of ischemia or ectopy. No ST segmental elevation or depression. No T wave inversions Discharge Plan Departure Patient Disposition: Home Clinical Impression: Nausea Instructions: DI for Nausea -- Adult Activity Restrictions/Additional Instructions: *You have been diagnosed with [nausea and fatigue. Your physical exam, EKG, labs and all testing is very reassuring.] *What to do: *Please continue to take your regular medications as directed. [ ] New medication prescriptions sent to your pharmacy: [ ] [ ] New medication written as a paper prescription [ x] No new medications given *Please follow up with your primary care provider in 2-3 days, call for an appointment. Let them know you were seen in the Emergency Department and that we ask that you be seen in follow up. We will electronically transmit a record of david doran's note if your PCP is in our system *If you do not have a primary care provider please contact the [facility] Resource line at [phone]. They will ask some questions about your medical history and help get you set up with a doctor in the community. *Return to Emergency Department if you should have any new, worsening or concerning symptoms, such as [fever greater than 101 F, shaking chills, worsening pain, persistent vomiting or other bothersome symptoms] Prescriptions: No Action warfarin 5 mg tablet See Rx Instructions PO DAILY Qty: 90 RF: 3 esomeprazole magnesium [Nexium] 40 mg capsule,delayed release(DR/EC) 40 mg PO BID RF: 0 ezetimibe 10 mg tablet 5 mg PO DAILY Qty: 30 RF: 0 melatonin 10 mg capsule 10 mg PO BEDTIME PRNRF: 0 theanine 200 mg capsule 400 mg PO BID RF: 0 alprazolam 0.25 mg tablet 0.25 mg PO DAILY RF: 0 cyanocobalamin (vitamin B-12) [Vitamin B-12] 1,000 mcg tablet 1,000 mcg PO DAILY RF: 0 multivitamin tablet 1 tab PO DAILY Qty: 30 RF: 0 calcium carbonate 500 mg calcium (1,250 mg) capsule 500 mg PO BID Qty: 60 RF: 0 arginine (L-arginine) 500 mg capsule 500 mg PO .QHS Qty: 30 RF: 0 cholecalciferol (vitamin D3) 400 unit capsule 400 unit PO DAILY Qty: 30 RF: 0 FISH OIL 1,200 mg 1,200 mg PO .QD Qty: 30 RF: 0 colesevelam [WelChol] 625 mg tablet 2 tab PO BID RF: 0 Referrals: Evita Jarvis DO [Primary Care Provider] -
[2020-11-10] MEDS: SODIUM CHLORIDE 0.9% 1,000 ML 150 ML IV (03:09)
[2020-11-10 03:46] LABS: INR 2.6 (0.9-1.3); Prothrombin Time 29.3 SECONDS (10.1-12.7)
[2020-11-10 03:49] LABS: Add Manual Diff / Slide Review NO; Basophils Absolute Auto 0 /uL (0-100); Basophils Percent Auto 0.9 % (0-2); Eosinophils Absolute Auto 200 /uL (0-450); Eosinophils Percent Auto 4.9 % (2-4); Hematocrit 43.3 % (36-46); Lactate (Lactic Acid) 1.1 mmol/L (0.7-2.1); Lymphocytes Absolute Auto 1900 /uL (1100-4500); Lymphocytes Percent Auto 38.9 % (25-40); Mean Corpuscular HGB Conc 32.3 % (30-36); Mean Corpuscular Hemoglobin 29.5 PG (26-34); Mean Corpuscular Volume 91.4 fL (80-100); Monocytes Absolute Auto 400 /uL (0-900); Monocytes Percent Auto 8.9 % (3-14); Neutrophils Absolute Auto 2200 /uL (1500-7000); Neutrophils Percent Auto 46.4 % (50-75); Platelet Count 265 X10^3/uL (150-400); Red Blood Cell Count 4.74 X10^6/uL (4.0-5.2); Red Cell Distribution Width 14.8 % (11.6-14.8); White Blood Cell Count 4.8 X10^3/uL (4.5-11.0)
[2020-11-10 03:50] LABS: Alanine Aminotransferase 28 IU/L (<35); Albumin 3.9 g/dL (3.5-5.0); Albumin Globulin Ratio 1.3 (1.0-2.8); Alkaline Phosphatase 125 U/L (38-126); Aspartate Aminotransferase 34 IU/L (14-36); BUN Creatinine Ratio 19.6 (6-22); Bilirubin Total 0.7 mg/dL (0.2-1.3); Blood Urea Nitrogen 19 mg/dL (7-17); Calcium 9.1 mg/dL (8.4-10.2); Carbon Dioxide 28 mmol/L (22-32); Chloride 108 mmol/L (98-107); Estimated Glomerular Filt Rate 54.8 mL/min (>60); Globulin 2.9 g/dL (1.7-4.1); Glucose 109 mg/dL (80-110); HEMOLYSIS < 15 (0-50); Sodium 141 mmol/L (137-145); Total Protein 6.8 g/dL (6.3-8.2)
[2020-11-10 04:44] LABS: Creatine Kinase 66 U/L (30-135)
[2020-11-10 04:57] LABS: Troponin I 0.023 ng/mL (0.01-0.034)
[2020-11-10] MEDS: ONDANSETRON 4 MG/2 ML INJ IV (05:36)
[2020-11-10 05:57] LABS: Bacteria Urine None Seen; RBC Urine None Seen (0-5/HPF)
[2020-11-10 06:09] LABS: Squamous Epithelial Cell Urine 1-5 /HPF (0-5/HPF); WBC Urine 0-1/HPF (0-5/HPF)
[2020-11-10 06:10] LABS: Troponin I 0.022 ng/mL (0.01-0.034)
[2020-11-10 07:13] LABS: COVID19 -Nasal RAPID Negative (Negative)
[2020-11-10 07:23] VITALS: BP 131/66; PULSE 74; RESP 14; O2SAT 96
--- NOTE | 2020-11-10 19:05 | ED_ITS ---
HPI - Nausea/Vomiting/Diarrhea General Chief complaint: Nausea/Vomiting/Diarrhea Stated complaint: woke up shaking, nauseas, tingling Time Seen by Provider: 11/10/20 02:30 Source: patient Mode of arrival: Ambulatory Limitations: no limitations Related Data Home Medications Medication Instructions Recorded Confirmed alprazolam 0.25 mg tablet 0.25 mg PO DAILY 08/20/17 08/21/20 cyanocobalamin (vitamin B-12) 1,000 mcg PO DAILY 08/20/17 08/21/20 1,000 mcg tablet (Vitamin B-12) esomeprazole magnesium 40 mg 40 mg PO BID cap 12/28/17 08/21/20 capsule,delayed release (Nexium) colesevelam 625 mg tablet (WelChol) 2 tab PO BID 01/20/18 08/21/20 melatonin 10 mg capsule 10 mg PO BEDTIME PRN 10/12/20 10/12/20 theanine 200 mg capsule 400 mg PO BID cap 10/12/20 10/12/20 Previous Rx's Medication Instructions Recorded FISH OIL 1,200 mg PO .QD #30 08/28/17 arginine (L-arginine) 500 mg 500 mg PO .QHS #30 cap 08/28/17 capsule calcium carbonate 500 mg calcium 500 mg PO BID #60 cap 08/28/17 (1,250 mg) capsule cholecalciferol (vitamin D3) 10 400 unit PO DAILY #30 cap 08/28/17 mcg (400 unit) capsule multivitamin 1 tab PO DAILY #30 tab 08/28/17 warfarin 5 mg tablet See Rx Instructions PO DAILY #90 03/07/20 tab ezetimibe 10 mg tablet 5 mg PO DAILY #30 tab 10/12/20 Allergies Allergy/AdvReac Type Severity Reaction Status Date / Time Sulfa (Sulfonamide Allergy Severe TROUBLE Verified 10/12/20 11:46 Antibiotics) BREATHING [SULFA (SULFONAMIDE ANTIBIOTICS)] morphine [MORPHINE] Allergy Unknown Verified 10/12/20 11:46 Penicillins [PENICILLINS] Allergy Unknown Verified 10/12/20 11:46 nitrofurantoin AdvReac Intermediate elevated Verified 10/12/20 11:46 liver enzymes Patient History Medical History Anemia Anxiety Asthma Asymptomatic carotid artery stenosis (05/25/15) BCC (basal cell carcinoma of skin) (2010) Bronchiectasis Carpal tunnel syndrome, right (2014) Cataract Chicken pox Colon polyps (1991) Depression Eczema Elevated LFTs Fibroids (1994) Gastroesophageal reflux disease (1997) Hayfever Hiatal hernia Hyperlipidemia (01/08/15) Insomnia Lactose intolerance in adult (10/20/16) Left leg DVT (1994) 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/15) Measles Painful menstrual periods Peptic ulcer disease (1982) Plantar warts (195) Plantar warts 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) Thyroid nodule (05/24/15) Tubular adenoma of colon (~04/2016) Whiplash injury Surgical History Anesthesia History of cataract removal with insertion of prosthetic lens (03/22/14) History of cataract removal with insertion of prosthetic lens (04/12/14) History of fundoplication (2000) History of phacoemulsification of cataract of left eye with intraocular lens implantation (04/12/14) History of phacoemulsification of cataract of right eye with intraocular lens im plantation (03/22/14) History of tonsillectomy (~194) Status post appendectomy Status post cholecystectomy Status post hysterectomy (1995) Status post knee surgery (1994) Family History Son Age: 60 CAD (coronary artery disease) Heart attack Son Age: 55 Prostate cancer Father Heart disease Cardiac aneurysm Sister Age: 79 Malignant neoplasm of female breast, unspecified laterality, unspecified site of breast Brother No problems noted. Son No problems noted. Grandfather Heart attack Grandmother Cancer Mother Ovarian cancer Social History Smoking Status: Never smoker Smoking Status: Never smoker alcohol intake frequency: 0-2 drinks per day Substance Use Type: does not use Exam Initial Vital Signs Initial Vital Signs: Vital Signs Temperature 97.1 F L 11/10/20 02:37 Pulse Rate 64 11/10/20 02:37 Respiratory Rate 18 11/10/20 02:37 Blood Pressure 144/83 H 11/10/20 02:37 Pulse Oximetry 98 11/10/20 02:37 Course Orders Ordered: Discontinued Medications Sodium Chloride (Normal Saline 0.9%) 1,000 mls @ 150 mls/hr IV CONT ELLEN Last Infusion: 11/10/20 07:31 Dose: 0 mls/hr Documented by: Admin: 11/10/20 03:09 Dose: 150 mls/hr Documented by: JOSE Ondansetron HCl (Ondansetron 4 Mg/2 Ml Inj) 4 mg IV NOW ONE Stop: 11/10/20 05:32 Last Admin: 11/10/20 05:36 Dose: 4 mg Documented by: JOSE MDM - Nausea/Vomiting/Diarrhea Lab Data Result diagrams: 11/10/20 03:20 11/10/20 03:20 Labs: Lab Results 11/10/20 11/10/20 11/10/20 Range/Units 03:20 03:20 03:20 WBC 4.8 (4.5-11.0) X10^3/uL RBC 4.74 (4.0-5.2) X10^6/uL Hgb 14.0 (12.0-16.0) g/dL Hct 43.3 (36-46) % MCV 91.4 (80-100) fL MCH 29.5 (26-34) PG MCHC 32.3 (30-36) % RDW 14.8 (11.6-14.8) % Plt Count 265 (150-400) X10^3/uL Neut % (Auto) 46.4 L (50-75) % Lymph % (Auto) 38.9 (25-40) % Barron % (Auto) 8.9 (3-14) % Eos % (Auto) 4.9 H (2-4) % Baso % (Auto) 0.9 (0-2) % Neut # (Auto) 2200 (4264-1052) /uL Lymph # (Auto) 1900 (9859-1311) /uL Barron # (Auto) 400 (0-900) /uL Eos # (Auto) 200 (0-450) /uL Baso # (Auto) 0 (0-100) /uL PT 29.3 H (10.1-12.7) SECONDS INR 2.6 H (0.9-1.3) Sodium 141 (137-145) mmol/L Potassium 4.0 (3.4-5.1) mmol/L Chloride 108 H (98-107) mmol/L Carbon Dioxide 28 (22-32) mmol/L BUN 19 H (7-17) mg/dL Creatinine 0.97 (0.52-1.04) mg/dL Estimated GFR 54.8 L (>60) mL/min BUN/Creatinine Ratio 19.6 (6-22) Glucose 109 (80-110) mg/dL Lactate (0.7-2.1) mmol/L Calcium 9.1 (8.4-10.2) mg/dL Total Bilirubin 0.7 (0.2-1.3) mg/dL AST 34 (14-36) IU/L ALT 28 (<35) IU/L Alkaline Phosphatase 125 (38-126) U/L Total Creatine Kinase (30-135) U/L CK-MB (CK-2) CK-MB (CK-2) Rel Index Troponin I (0.01-0.034) ng/mL Total Protein 6.8 (6.3-8.2) g/dL Albumin 3.9 (3.5-5.0) g/dL Globulin 2.9 (1.7-4.1) g/dL Albumin/Globulin Ratio 1.3 (1.0-2.8) Urine RBC (0-5/HPF) Urine WBC (0-5/HPF) Ur Squamous Epith Cells (0-5/HPF) Urine Bacteria (None) Ur Culture Indicated? SARS-CoV-2 (PCR) (Negative) 11/10/20 11/10/20 11/10/20 Range/Units 03:20 03:20 05:35 WBC (4.5-11.0) X10^3/uL RBC (4.0-5.2) X10^6/uL Hgb (12.0-16.0) g/dL Hct (36-46) % MCV (80-100) fL MCH (26-34) PG MCHC (30-36) % RDW (11.6-14.8) % Plt Count (150-400) X10^3/uL Neut % (Auto) (50-75) % Lymph % (Auto) (25-40) % Barron % (Auto) (3-14) % Eos % (Auto) (2-4) % Baso % (Auto) (0-2) % Neut # (Auto) (0074-0804) /uL Lymph # (Auto) (4207-1119) /uL Barron # (Auto) (0-900) /uL Eos # (Auto) (0-450) /uL Baso # (Auto) (0-100) /uL PT (10.1-12.7) SECONDS INR (0.9-1.3) Sodium (137-145) mmol/L Potassium (3.4-5.1) mmol/L Chloride (98-107) mmol/L Carbon Dioxide (22-32) mmol/L BUN (7-17) mg/dL Creatinine (0.52-1.04) mg/dL Estimated GFR (>60) mL/min BUN/Creatinine Ratio (6-22) Glucose (80-110) mg/dL Lactate 1.1 (0.7-2.1) mmol/L Calcium (8.4-10.2) mg/dL Total Bilirubin (0.2-1.3) mg/dL AST (14-36) IU/L ALT (<35) IU/L Alkaline Phosphatase (38-126) U/L Total Creatine Kinase 66 (30-135) U/L CK-MB (CK-2) TNP CK-MB (CK-2) Rel Index TNP Troponin I 0.023 0.022 (0.01-0.034) ng/mL Total Protein (6.3-8.2) g/dL Albumin (3.5-5.0) g/dL Globulin (1.7-4.1) g/dL Albumin/Globulin Ratio (1.0-2.8) Urine RBC (0-5/HPF) Urine WBC (0-5/HPF) Ur Squamous Epith Cells (0-5/HPF) Urine Bacteria (None) Ur Culture Indicated? SARS-CoV-2 (PCR) (Negative) 11/10/20 11/10/20 Range/Units 05:45 06:50 WBC (4.5-11.0) X10^3/uL RBC (4.0-5.2) X10^6/uL Hgb (12.0-16.0) g/dL Hct (36-46) % MCV (80-100) fL MCH (26-34) PG MCHC (30-36) % RDW (11.6-14.8) % Plt Count (150-400) X10^3/uL Neut % (Auto) (50-75) % Lymph % (Auto) (25-40) % Barron % (Auto) (3-14) % Eos % (Auto) (2-4) % Baso % (Auto) (0-2) % Neut # (Auto) (1582-9474) /uL Lymph # (Auto) (1303-0130) /uL Barron # (Auto) (0-900) /uL Eos # (Auto) (0-450) /uL Baso # (Auto) (0-100) /uL PT (10.1-12.7) SECONDS INR (0.9-1.3) Sodium (137-145) mmol/L Potassium (3.4-5.1) mmol/L Chloride (98-107) mmol/L Carbon Dioxide (22-32) mmol/L BUN (7-17) mg/dL Creatinine (0.52-1.04) mg/dL Estimated GFR (>60) mL/min BUN/Creatinine Ratio (6-22) Glucose (80-110) mg/dL Lactate (0.7-2.1) mmol/L Calcium (8.4-10.2) mg/dL Total Bilirubin (0.2-1.3) mg/dL AST (14-36) IU/L ALT (<35) IU/L Alkaline Phosphatase (38-126) U/L Total Creatine Kinase (30-135) U/L CK-MB (CK-2) CK-MB (CK-2) Rel Index Troponin I (0.01-0.034) ng/mL Total Protein (6.3-8.2) g/dL Albumin (3.5-5.0) g/dL Globulin (1.7-4.1) g/dL Albumin/Globulin Ratio (1.0-2.8) Urine RBC None seen (0-5/HPF) Urine WBC 0-1/hpf (0-5/HPF) Ur Squamous Epith Cells 1-5 /hpf (0-5/HPF) Urine Bacteria None seen (None) Ur Culture Indicated? Culture not indicate SARS-CoV-2 (PCR) Negative (Negative) Urine Dip Bedside Urine Glucose Negative Bedside Urine Bilirubin - Negative Bedside Urine Ketone - Negative Urine Specific [place] 1.015 Bedside Urine Occult Blood +/- Bedside Urine pH 6.0 Bedside Urine Protein - Negative Bedside Urine Urobilinogen - Negative Bedside Urine Nitrite - Negative Bedside Urine Leukocytes - Negative Esterase Discharge Plan Departure Patient Disposition: Home Clinical Impression: Nausea Instructions: DI for Nausea -- Adult Activity Restrictions/Additional Instructions: *You have been diagnosed with [nausea and fatigue. Your physical exam, EKG, labs and all testing is very reassuring.] *What to do: *Please continue to take your regular medications as directed. [ ] New medication prescriptions sent to your pharmacy: [ ] [ ] New medication written as a paper prescription [ x] No new medications given *Please follow up with your primary care provider in 2-3 days, call for an appointment. Let them know you were seen in the Emergency Department and that we ask that you be seen in follow up. We will electronically transmit a record of today's note if your PCP is in our system *If you do not have a primary care provider please contact the [facility] Resource line at [phone]. They will ask some questions about your medical h istory and help get you set up with a doctor in the community. *Return to Emergency Department if you should have any new, worsening or concerning symptoms, such as [fever greater than 101 F, shaking chills, worsening pain, persistent vomiting or other bothersome symptoms] Prescriptions: No Action warfarin 5 mg tablet See Rx Instructions PO DAILY Qty: 90 RF: 3 esomeprazole magnesium [Nexium] 40 mg capsule,delayed release(DR/EC) 40 mg PO BID RF: 0 ezetimibe 10 mg tablet 5 mg PO DAILY Qty: 30 RF: 0 melatonin 10 mg capsule 10 mg PO BEDTIME PRNRF: 0 theanine 200 mg capsule 400 mg PO BID RF: 0 alprazolam 0.25 mg tablet 0.25 mg PO DAILY RF: 0 cyanocobalamin (vitamin B-12) [Vitamin B-12] 1,000 mcg tablet 1,000 mcg PO DAILY RF: 0 multivitamin tablet 1 tab PO DAILY Qty: 30 RF: 0 calcium carbonate 500 mg calcium (1,250 mg) capsule 500 mg PO BID Qty: 60 RF: 0 arginine (L-arginine) 500 mg capsule 500 mg PO .QHS Qty: 30 RF: 0 cholecalciferol (vitamin D3) 400 unit capsule 400 unit PO DAILY Qty: 30 RF: 0 FISH OIL 1,200 mg 1,200 mg PO .QD Qty: 30 RF: 0 colesevelam [WelChol] 625 mg tablet 2 tab PO BID RF: 0 Referrals: Evita Jarvis DO [Primary Care Provider] -
== END 2020-11-10 07:41 | disposition home or self-care (01) ==
PROVIDERS: Emergency Provider Emergency Medicine; PCP Family Medicine
DX: R11.0 Nausea (principal); R53.83 Other fatigue; R42 Dizziness and giddiness; R07.9 Chest pain, unspecified; Z20.822 Contact with and (suspected) exposure to COVID-19
CPT/HCPCS: 36415; 71045; 80053; 81003; 81015; 82550; 83605; 84484; 85025; 85610; 87040; 87086; 87635; 93005; 93010; 96361; 96374; 99284; C9803; J2405

== ENCOUNTER → 2021-03-18 13:04 | Outpatient (CLI) | payer MEDICARE, OTHER, SELFPAY ==
[2021-03-18 14:09] LABS: Appearance Urine UA SL CLOUDY; Bilirubin Urine UA NEGATIVE (NEGATIVE); Color Urine UA YELLOW; Glucose Urine UA NEGATIVE (Negative); Ketones Urine UA TRACE (NEGATIVE); Leukocyte Esterase Urine UA 2+ (NEGATIVE); Nitrite Urine UA POSITIVE (Negative); Occult Blood Urine UA 3+ (Negative); Protein Urine UA NEGATIVE (Negative); Specific Gravity Urine UA 1.025 (1.000-1.035); Urobilinogen Urine UA 0.2 E.U./dL (0.2)
[2021-03-18 14:21] LABS: Bacteria Urine Many (>30); Culture Indicated Urine Specimen Cultured; RBC Urine 10-30/HPF (0-5/HPF); Squamous Epithelial Cell Urine 1-5 /HPF (0-5/HPF); WBC Urine 10-30/HPF (0-5/HPF)
== END ==
PROVIDERS: PCP Family Medicine; Referring Provider Family Medicine; Visit Provider Family Medicine
DX: R30.0 Dysuria (principal)
CPT/HCPCS: 81001; 87077; 87086; 87186

== ENCOUNTER 2021-04-15 10:54 | Emergency (ER) | payer MEDICARE, OTHER, SELFPAY ==
[2021-04-15 11:42] VITALS: BP 170/78; PULSE 66; RESP 14; TEMP 36.2; O2SAT 97
--- NOTE | 2021-04-15 11:46 | DI.US.S_ITS ---
PROCEDURE: US [facility] VENOUS LOW EXTREM LT INDICATIONS: PAIN. HISTORY OF DEEP VEIN THROMBOSIS. TECHNIQUE: Real-time imaging, as well as color and pulse Doppler interrogation, were performed of the lower extremity deep veins from the inguinal ligament to the popliteal fossa. COMPARISON: [facility], [facility], 08/23/2020, 13:24. FINDINGS: The common femoral, femoral and popliteal veins are normally compressible, and free of intraluminal thrombus. Color and pulse Doppler demonstrate normal phasic intraluminal flow. There is normal augmentation response to distal compression maneuver. IMPRESSION: No evidence of deep venous thrombosis, left lower extremity Approved by: Dom Moore M.D. on 04/15/2021 at 11:47
[2021-04-15 13:00] VITALS: PULSE 77
--- NOTE | 2021-04-15 15:38 | ED.EXTPRO ---
HPI - Extremity Problem <Precious Bryan PA-C - Last Filed: 04/15/21 21:31> General Chief complaint: Extremity Problem,Nontraumatic Stated complaint: LEFT LEG SWELLING,HX OF CLOTS Time Seen by Provider: 04/15/21 13:36 History of Present Illness HPI Narrative: 85-year-old female with a history of DVTs, hyperlipidemia, carotid artery stenosis presents to the ED with 3 days of left leg swelling and pain. Patient states that she feels the pain in the left popliteal area. Patient denies trauma. Patient denies fever, chills, chest pain, shortness of breath, lightheadedness, dizziness, syncope. Patient is currently on warfarin. Patient's last INR as of this morning was 3.7. Patient was sent by her doctor to the ED to rule out a DVT. Related Data Home Medications Medication Instructions Recorded Confirmed cyanocobalamin (vitamin B-12) 1,000 mcg PO DAILY 08/20/17 04/01/21 1,000 mcg tablet (Vitamin B-12) esomeprazole magnesium 40 mg 40 mg PO BID cap 12/28/17 04/01/21 capsule,delayed release (Nexium) colesevelam 625 mg tablet (WelChol) 2 tab PO BID 01/20/18 04/01/21 melatonin 10 mg capsule 10 mg PO BEDTIME PRN 10/12/20 04/01/21 theanine 200 mg capsule 400 mg PO BID cap 10/12/20 04/01/21 alprazolam 0.25 mg tablet 0.25 mg PO BEDTIME PRN 02/11/21 04/01/21 warfarin 5 mg tablet See Rx Instructions PO DAILY tab 04/15/21 Previous Rx's Medication Instructions Recorded arginine (L-arginine) 500 mg 500 mg PO .QHS #30 cap 08/28/17 capsule calcium carbonate 500 mg calcium 500 mg PO BID #60 cap 08/28/17 (1,250 mg) capsule cholecalciferol (vitamin D3) 10 400 unit PO DAILY #30 cap 08/28/17 mcg (400 unit) capsule multivitamin 1 tab PO DAILY #30 tab 08/28/17 ezetimibe 10 mg tablet 5 mg PO DAILY #30 tab 10/12/20 FISH OIL 2,800 mg PO .QD #60 cap 02/11/21 apixaban 5 mg tablet 5 mg PO BID #60 tab 04/01/21 Allergies Allergy/AdvReac Type Severity Reaction Status Date / Time Sulfa (Sulfonamide Allergy Severe TROUBLE Verified 04/15/21 11:46 Antibiotics) BREATHING [SULFA (SULFONAMIDE ANTIBIOTICS)] morphine [MORPHINE] Allergy Unknown Verified 04/15/21 11:46 Penicillins [PENICILLINS] Allergy Unknown Verified 04/15/21 11:46 nitrofurantoin AdvReac Intermediate elevated Verified 04/15/21 11:46 liver enzymes Review of Systems <Precious Bryan PA-C - Last Filed: 04/15/21 21:31> Review of Systems ROS Unobtainable: All systems reviewed & are unremarkable except as noted in HPI and below Constitutional Constitutional: Denies chills, Denies fatigue, Denies fever(s), Denies frequent falls, Denies lethargy and Denies weakness Eyes Eyes: Denies change in vision, Denies eye discharge, Denies irritation and Denies loss of vision ENT Ears, Nose, Mouth, and Throat: Denies change in voice, Denies dizziness, Denies neck pain, Denies sore throat and Denies throat swelling Cardiovascular Cardiovascular: Denies chest pain, Denies irregular heart rhythm, Denies lightheadedness, Denies palpitations, Denies dyspnea, Denies dyspnea on exertion and Denies orthopnea Respiratory Respiratory: Denies cough, Denies dyspnea, Denies dyspnea on exertion and Denies wheezing Gastrointestinal Gastrointestinal: Denies abdominal pain, Denies change in bowel habits, Denies diarrhea, Denies nausea and Denies vomiting Genitourinary Genitourinary: Denies hematuria, Denies flank pain, Denies urinary incontinence and Denies urinary urgency Musculoskeletal Musculoskeletal: Denies back pain, Denies muscle weakness, Denies neck pain, Denies numbness and Denies tingling Comments: Left leg swelling, pain Integumentary/Breasts Skin/Breast: Denies pruritus, Denies erythema, Denies rash and Denies wounds Neurologic Neurologic: Denies behavioral changes, Denies confusion, Denies dizziness, Denies frequent falls, Denies loss of vision, Denies numbness, Denies tingling and Denies weakness Psychiatric Psychiatric: Denies anxiety, Denies behavioral changes, Denies confusion, Denies depression, Denies homicidal ideation and Denies suicidal ideation Endocrine Endocrine: Denies fatigue, Denies flushing and Denies palpitations Hematologic/Lymphatic Hematologic/Lymphatic: Denies easy bruising Allergic/Immunologic Allergic/Immunologic: Denies urticaria, Denies throat swelling and Denies wheezing Patient History <Precious Bryan PA-C - Last Filed: 04/15/21 21:31> Medical History Anemia Anxiety Asthma Asymptomatic carotid artery stenosis (05/25/15) BCC (basal cell carcinoma of skin) (2010) Bronchiectasis Carpal tunnel syndrome, right (2014) Cataract Chicken pox Colon polyps (1991) Depression Eczema Elevated LFTs Fibroids (1994) Gastroesophageal reflux disease (1997) Hayfever Hiatal hernia Hyperlipidemia (01/08/15) Insomnia Lactose intolerance in adult (10/20/16) Left leg DVT (1994) 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/15) Measles Painful menstrual periods Peptic ulcer disease (1982) Plantar warts (1951) Plantar warts 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) Thyroid nodule (05/24/15) Tubular adenoma of colon (~04/2016) Whiplash injury Surgical History Anesthesia History of cataract removal with insertion of prosthetic lens (03/22/14) History of cataract removal with insertion of prosthetic lens (04/12/14) History of fundoplication (2000) History of phacoemulsification of cataract of left eye with intraocular lens implantation (04/12/14) History of phacoemulsification of cataract of right eye with intraocular lens implantation (03/22/14) History of tonsillectomy (~1942) Status post appendectomy Status post cholecystectomy Status post hysterectomy (1995) Status post knee surgery (1994) Family History Son Age: 61 CAD (coronary artery disease) Heart attack Son Age: 56 Prostate cancer Father Heart disease Cardiac aneurysm Sister Age: 80 Malignant neoplasm of female breast, unspecified laterality, unspecified site of breast Brother No problems noted. Son No problems noted. Grandfather Heart attack Grandmother Cancer Mother Ovarian cancer Social History Smoking Status: Never smoker Smoking Status: Never smoker alcohol intake frequency: 0-2 drinks per day Substance Use Type: does not use Exam <Precious Bryan PA-C - Last Filed: 04/15/21 21:31> Initial Vital Signs Initial Vital Signs: Vital Signs Temperature 97.2 F L 04/15/21 11:42 Pulse Rate 66 04/15/21 11:42 Respiratory Rate 14 04/15/21 11:42 Blood Pressure 170/78 H 04/15/21 11:42 Pulse Oximetry 97 04/15/21 11:42 Const General: cooperative, healthy appearing and comfortable [facility] Head: normal to inspection Eyes General: appearance normal, both eyes and all related structures Neck Neck: normal visual inspection Chest Chest: normal inspection of the chest Resp Effort & Inspection: normal respiratory effort Auscultation: clear to auscultation bilaterally Cardio Rate: regular rate Rhythm: regular rhythm Skin General: no rashes or lesions noted Neuro General: patient alert, patient awake and patient oriented x3 Extrem Other: Left lower leg appears swollen compared to the right, tenderness to palpation in the popliteal region. No erythema, wounds, rashes. Neurovascularly intact. Full range of motion. Normal gait. Psych Appearance: grossly normal <Janie Mcmahon MD - Last Filed: 04/22/21 03:57> Initial Vital Signs Initial Vital Signs: Vital Signs Temperature 97.2 F L 04/15/21 11:42 Pulse Rate 66 04/15/21 11:42 Respiratory Rate 14 04/15/21 11:42 Blood Pressure 170/78 H 04/15/21 11:42 Pulse Oximetry 97 04/15/21 11:42 Course <Precious Bryan PA-C - Last Filed: 04/15/21 21:31> Orders Ordered: ED Orders 04/15/21 11:46 US perip venous low extrem lt Stat Vital Signs Vital signs: Vital Signs - 8 hr 04/15/21 11:42 04/15/21 13:00 Temperature 97.2 F L Pulse Rate 66 Pulse Rate [Left Dorsalis Pedis] 77 Respiratory Rate 14 Blood Pressure 170/78 H Pulse Oximetry 97 <Janie Mcmahon MD - Last Filed: 04/22/21 03:57> Orders Ordered: ED Orders 04/15/21 11:46 perip venous low extrem lt Stat Vital Signs Vital signs: Vital Signs - 8 hr 04/15/21 11:42 04/15/21 13:00 Temperature 97.2 F L Pulse Rate 66 Pulse Rate [Left Dorsalis Pedis] 77 Respiratory Rate 14 Blood Pressure 170/78 H Pulse Oximetry 97 MDM - Extremity (Nontraumatic) <Precious Bryan PA-C - Last Filed: 04/15/21 21:31> Imaging Data US - DVT: Radiologist's Impression: PROCEDURE:? US [facility] VENOUS LOW EXTREM LT ? INDICATIONS:? PAIN. HISTORY OF DEEP VEIN THROMBOSIS. ? TECHNIQUE:? Real-time imaging, as well as color and pulse Doppler interrogation, were performed of the lower extremity deep veins from the inguinal ligament to the popliteal fossa.? ? COMPARISON:? [facility], PERIP VENOUS LOW EXTREM LT, 08/23/2020, 13:24. ? FINDINGS:? The common femoral, femoral and popliteal veins are normally compressible, and free of intraluminal thrombus.? Color and pulse Doppler demonstrate normal phasic intraluminal flow.? There is normal augmentation response to distal compression maneuver. ? ? IMPRESSION:? No evidence of deep venous thrombosis, left lower extremity ? ? ? Approved by: Dom Moore M.D. on 04/15/2021 at 11:47? [facility] Narrative Medical decision making narrative: 85-year-old female with a history of DVTs, hyperlipidemia, carotid artery stenosis presents to the ED with 3 days of left leg swelling and pain. Concern for DVT versus cellulitis versus musculoskeletal sprain/strain. Doppler ultrasound negative for DVTs. Physical exam reassuring for no cellulitis. Will discharge patient home with ED return precautions, PCP follow-up. Patient verbalized understanding. Discharge Plan Departure Patient Disposition: Home Clinical Impression: Left leg swelling Instructions: DI for Leg Pain Activity Restrictions/Additional Instructions: You were evaluated in the ED today for left-sided leg pain and swelling. Your ultrasound showed no evidence of blood clots. Please continue taking your regular dose of warfarin. Your symptoms are likely due to a musculoskeletal sprain/strain. You may rest, ice, compress, elevate your left leg. Return to the ED if you notice worsening symptoms, chest pain, shortness of breath. Please follow-up with your PCP as soon as possible. Prescriptions: No Action esomeprazole magnesium [Nexium] 40 mg capsule,delayed release(DR/EC) 40 mg PO BID 0RF ezetimibe 10 mg tablet 5 mg PO DAILY Qty: 30 0RF melatonin 10 mg capsule 10 mg PO BEDTIME PRN0RF theanine 200 mg capsule 400 mg PO BID 0RF warfarin 5 mg tablet See Rx Instructions PO DAILY 0RF Rx Instructions: Take 7.5mg Thursday and and 5mg all other days. cyanocobalamin (vitamin B-12) [Vitamin B-12] 1,000 mcg tablet 1,000 mcg PO DAILY 0RF multivitamin tablet 1 tab PO DAILY Qty: 30 0RF calcium carbonate 500 mg calcium (1,250 mg) capsule 500 mg PO BID Qty: 60 0RF Rx Instructions: give after food/meal arginine (L-arginine) 500 mg capsule 500 mg PO .QHS Qty: 30 0RF cholecalciferol (vitamin D3) 400 unit capsule 400 unit PO DAILY Qty: 30 0RF alprazolam 0.25 mg tablet 0.25 mg PO BEDTIME PRN0RF FISH OIL 1,400 mg 2,800 mg PO .QD Qty: 60 0RF apixaban 5 mg tablet 5 mg PO BID Qty: 60 0RF colesevelam [WelChol] 625 mg tablet 2 tab PO BID 0RF Rx Instructions: give with food (meal/snack) Referrals: Evita Jarvis DO [Primary Care Provider] - <Janie Mcmahon MD - Last Filed: 04/22/21 03:57> Cosign ED Attending [place] Attestation: I was immediately available in the department for consultation throughout this patient's visit. I agree with documentation as above. Janie Mcmahon MD
== END 2021-04-15 14:18 | disposition home or self-care (01) ==
PROVIDERS: Emergency Provider Student in an Organized Health Care Education/Training Program; PCP Family Medicine
DX: M79.89 Other specified soft tissue disorders (principal); M79.662 Pain in left lower leg
CPT/HCPCS: 93971; 99283

== ENCOUNTER → 2021-04-22 12:47 | Outpatient (CLI) | payer MEDICARE, OTHER, SELFPAY ==
[2021-04-22 14:01] LABS: INR 2.8 (0.9-1.3); Prothrombin Time 31.6 SECONDS (10.1-12.7)
== END ==
PROVIDERS: PCP Family Medicine; Referring Provider Family Medicine; Visit Provider Family Medicine
DX: Z79.01 Long term (current) use of anticoagulants (principal)
CPT/HCPCS: 36415; 85610

== ENCOUNTER 2021-06-29 19:04 | Emergency (ER) | payer MEDICARE, OTHER, SELFPAY ==
[2021-06-29] VITALS (15 sets, daily range): BP systolic 148–186; BP diastolic 60–84; PULSE 58–82; RESP 14–26; TEMP 36.6; O2SAT 94–100; BMI 22.3
--- NOTE | 2021-06-29 19:14 | DI.RAD.S_ITS ---
PROCEDURE: XR CHEST 1V INDICATIONS: chest pain TECHNIQUE: One view of the chest was acquired. COMPARISON: [facility], CR, XR CHEST 1V, 11/10/2020, 3:43. FINDINGS: Surgical changes and devices: None. Lungs and pleura: Lungs are clear. No pleural effusions or pneumothorax. Mediastinum: Mediastinal contours appear normal. Heart size is normal. Bones and chest wall: No suspicious bony lesions. Overlying soft tissues appear unremarkable. IMPRESSION: No evidence acute pulmonary process. Dictated by: Tien Dimas M.D. on 06/29/2021 at 19:50 Approved by: Tien Dimas M.D. on 06/29/2021 at 19:51
[2021-06-29 19:51] LABS: Add Manual Diff / Slide Review NO; Basophils Absolute Auto 0 /uL (0-100); Basophils Percent Auto 0.3 % (0-2); Eosinophils Absolute Auto 200 /uL (0-450); Eosinophils Percent Auto 3.7 % (2-4); Hematocrit 41.5 % (36-46); Hemoglobin 13.5 g/dL (12.0-16.0); Lymphocytes Absolute Auto 1700 /uL (1100-4500); Lymphocytes Percent Auto 32.3 % (25-40); Mean Corpuscular HGB Conc 32.6 % (30-36); Mean Corpuscular Hemoglobin 29.8 PG (26-34); Mean Corpuscular Volume 91.6 fL (80-100); Monocytes Absolute Auto 500 /uL (0-900); Monocytes Percent Auto 9.2 % (3-14); Neutrophils Absolute Auto 2800 /uL (1500-7000); Neutrophils Percent Auto 54.5 % (50-75); Platelet Count 313 X10^3/uL (150-400); Red Blood Cell Count 4.53 X10^6/uL (4.0-5.2); Red Cell Distribution Width 14.7 % (11.6-14.8); White Blood Cell Count 5.2 X10^3/uL (4.5-11.0)
--- NOTE | 2021-06-29 19:52 | ED.CHESTPAIN ---
HPI - Chest Pain General Chief Complaint: Chest Pain Stated Complaint: Jolt In Chest/High BP Time Seen by Provider: 06/29/21 19:15 Source: patient Mode of arrival: Ambulatory History of Present Illness HPI narrative: 86-year-old Female nonsmoker with history of elevated LFTs on chronic anticoagulation, peptic ulcer disease and insomnia presents with her for evaluation of an episode of sudden onset left anterior chest pain which she describes as a sharp jolt that woke her from sleep this morning. It quickly subsided and she has had no recurrence of the pain. She denies any history of the same. She denies obvious provocation or palliation nor radiation. She has had some aching in her shoulder earlier in the day that has since gone. She admits to a pressure in her left anterior chest that is been there for many days if not weeks that is not the pain that brought her in today and has been previously evaluated without significant findings. She denies associated symptoms such as dizziness, weakness or lightheadedness. She has no exertional symptoms and denies exercise intolerance, N/V/D or unexplained diaphoresis. Related Data Home Medications Medication Instructions Recorded Confirmed cyanocobalamin (vitamin B-12) 1,000 mcg PO DAILY 08/20/17 04/01/21 1,000 mcg tablet (Vitamin B-12) esomeprazole magnesium 40 mg 40 mg PO BID cap 12/28/17 04/01/21 capsule,delayed release (Nexium) colesevelam 625 mg tablet (WelChol) 2 tab PO BID 01/20/18 04/01/21 melatonin 10 mg capsule 10 mg PO BEDTIME PRN 10/12/20 04/01/21 theanine 200 mg capsule 400 mg PO BID cap 10/12/20 04/01/21 alprazolam 0.25 mg tablet 0.25 mg PO BEDTIME 02/11/21 06/29/21 Previous Rx's Medication Instructions Recorded arginine (L-arginine) 500 mg 500 mg PO .QHS #30 cap 08/28/17 capsule calcium carbonate 500 mg calcium 500 mg PO BID #60 cap 08/28/17 (1,250 mg) capsule cholecalciferol (vitamin D3) 10 400 unit PO DAILY #30 cap 08/28/17 mcg (400 unit) capsule multivitamin 1 tab PO DAILY #30 tab 08/28/17 ezetimibe 10 mg tablet 5 mg PO DAILY #30 tab 10/12/20 FISH OIL 2,800 mg PO .QD #60 cap 02/11/21 apixaban 5 mg tablet 5 mg PO BID #180 tab 05/16/21 Allergies Allergy/AdvReac Type Severity Reaction Status Date / Time Sulfa (Sulfonamide Allergy Severe TROUBLE Verified 06/29/21 19:16 Antibiotics) BREATHING [SULFA (SULFONAMIDE ANTIBIOTICS)] morphine [MORPHINE] Allergy Unknown Verified 06/29/21 19:16 Penicillins [PENICILLINS] Allergy Unknown Verified 06/29/21 19:16 nitrofurantoin AdvReac Intermediate elevated Verified 06/29/21 19:16 liver enzymes Review of Systems Review of Systems Narrative: GENERAL: Denies chills, fatigue, malaise, fever, sweats. HEENT: Denies sinus pain, ear pain, sore throat, difficulty swallowing, dizziness. RESPIRATORY: Denies dyspnea, cough, wheezing, hemoptysis, sputum. CARDIOVASCULAR: See HPI GASTROINTESTINAL: Denies nausea, vomiting, abdominal pain, diarrhea, constipation, melena. : Denies dysuria, frequency, incontinence, hematuria, urinary retention. MUSCULOSKELETAL: denies weakness, joint pain, or bony pain SKIN: Denies rash, skin lesions, or other NEUROLOGIC: Denies weakness, headache, numbness, change in speech, confusion, seizures, incoordination. PSYCHIATRIC: No concerning psychosocial issues. 12 point review of systems is negative except for those stated above Patient History Medical History Anemia Anxiety Asthma Asymptomatic carotid artery stenosis (05/25/15) BCC (basal cell carcinoma of skin) (2010) Bronchiectasis Carpal tunnel syndrome, right (2014) Cataract Chicken pox Colon polyps (1991) Depression Eczema Elevated LFTs Fibroids (1994) Gastroesophageal reflux disease (1997) Hayfever Hiatal hernia Hyperlipidemia (01/08/15) Insomnia Lactose intolerance in adult (10/20/16) Left leg DVT (1994) FPC current use of anticoagulant therapy (05/08/15) Measles Painful menstrual periods Peptic ulcer disease (1982) Plantar warts (1951) Plantar warts 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) Thyroid nodule (05/24/15) Tubular adenoma of colon (~04/2016) Whiplash injury Surgical History Anesthesia History of cataract removal with insertion of prosthetic lens (03/22/14) History of cataract removal with insertion of prosthetic lens (04/12/14) History of fundoplication (2000) History of phacoemulsification of cataract of left eye with intraocular lens implantation (04/12/14) History of phacoemulsification of cataract of right eye with intraocular lens implantation (03/22/14) History of tonsillectomy (~1942) Status post appendectomy Status post cholecystectomy Status post hysterectomy (1995) Status post knee surgery (1994) Family History Son Age: 61 CAD (coronary artery disease) Heart attack Son Age: 56 Prostate cancer Father Heart disease Cardiac aneurysm Sister Age: 80 Malignant neoplasm of female breast, unspecified laterality, unspecified site of breast Brother No problems noted. Son No problems noted. Grandfather Heart attack Grandmother Cancer Mother Ovarian cancer Social History Smoking Status: Never smoker Smoking Status: Never smoker alcohol intake frequency: 0-2 drinks per day Substance Use Type: does not use Exam Narrative Exam Narrative: GENERAL: [86] year old patient appears stated age. Well-developed patient, in mild distress. HEAD: Atraumatic. Normocephalic. EYES: Pupils equal round and reactive. Extraocular motions intact. No scleral icterus. No injection or drainage. ENT: Nose without bleeding, purulent drainage. Throat without erythema, tonsillar hypertrophy or exudate. Airway patent. NECK: Trachea midline. Non tender CARDIOVASCULAR: Regular rate and rhythm without murmurs, gallops, or rubs. Left anterior chest discomfort on palpation, no crepitance, erythema, induration or fluctuance noted, this is consistent with the discomfort she states she has had for quite some time RESPIRATORY: Clear to auscultation. Breath sounds equal bilaterally. No wheezes, rales, or rhonchi. GASTROINTESTINAL: Abdomen soft, non-tender, nondistended. EXTREMITIES: No edema or joint tenderness. BACK: Nontender without deformity or crepitance. No flank tenderness. NEURO: AOx3. SKIN: No rash or erythema of visible areas Initial Vital Signs Initial Vital Signs: Vital Signs Temperature 97.8 F 06/29/21 19:14 Pulse Rate 82 06/29/21 19:14 Respiratory Rate 17 06/29/21 19:14 Blood Pressure 186/84 H 06/29/21 19:14 Pulse Oximetry 98 06/29/21 19:14 Course Orders Ordered: ED Orders 06/29/21 21:43 Troponin & CK Cardiac Panel Stat Vital Signs Vital signs: Vital Signs - 8 hr 06/29/21 21:30 06/29/21 22:00 06/29/21 22:01 Pulse Rate 63 62 64 Respiratory Rate 20 25 H Blood Pressure 175/83 H 160/74 H Pulse Oximetry 99 98 99 06/29/21 22:30 Pulse Rate 65 Respiratory Rate 21 Blood Pressure 161/75 H Pulse Oximetry 98 MDM - Chest Pain Lab Data Result diagrams: 06/29/21 19:35 06/29/21 19:35 Labs: Lab Results 06/29/21 06/29/21 06/29/21 Range/Units 19:35 19:35 19:35 WBC 5.2 (4.5-11.0) X10^3/uL RBC 4.53 (4.0-5.2) X10^6/uL Hgb 13.5 (12.0-16.0) g/dL Hct 41.5 (36-46) % MCV 91.6 (80-100) fL MCH 29.8 (26-34) PG MCHC 32.6 (30-36) % RDW 14.7 (11.6-14.8) % Plt Count 313 (150-400) X10^3/uL Neut % (Auto) 54.5 (50-75) % Lymph % (Auto) 32.3 (25-40) % Gosper % (Auto) 9.2 (3-14) % Eos % (Auto) 3.7 (2-4) % Baso % (Auto) 0.3 (0-2) % Neut # (Auto) 2800 (4082-5856) /uL Lymph # (Auto) 1700 (8062-7216) /uL Gosper # (Auto) 500 (0-900) /uL Eos # (Auto) 200 (0-450) /uL Baso # (Auto) 0 (0-100) /uL D-Dimer < 200 (<230) ng/mL Sodium 141 (137-145) mmol/L Potassium 3.7 (3.4-5.1) mmol/L Chloride 110 H (98-107) mmol/L Carbon Dioxide 27 (22-32) mmol/L BUN 17 (7-17) mg/dL Creatinine 0.85 (0.52-1.04) mg/dL Estimated GFR > 60 (>60) mL/min BUN/Creatinine Ratio 20.0 (6-22) Glucose 137 H (80-110) mg/dL Calcium 8.7 (8.4-10.2) mg/dL Magnesium 2.1 (1.6-2.3) mg/dL Total Bilirubin 0.7 (0.2-1.3) mg/dL AST 33 (14-36) IU/L ALT 27 (<35) IU/L Alkaline Phosphatase 88 (38-126) U/L Total Creatine Kinase 83 (30-135) U/L CK-MB (CK-2) TNP CK-MB (CK-2) Rel Index TNP Troponin I 0.015 (0.01-0.034) ng/mL Total Protein 6.8 (6.3-8.2) g/dL Albumin 4.1 (3.5-5.0) g/dL Globulin 2.7 (1.7-4.1) g/dL Albumin/Globulin Ratio 1.5 (1.0-2.8) Lipase 73 (23-300) U/L 06/29/21 Range/Units 21:43 WBC (4.5-11.0) X10^3/uL RBC (4.0-5.2) X10^6/uL Hgb (12.0-16.0) g/dL Hct (36-46) % MCV (80-100) fL MCH (26-34) PG MCHC (30-36) % RDW (11.6-14.8) % Plt Count (150-400) X10^3/uL Neut % (Auto) (50-75) % Lymph % (Auto) (25-40) % Gosper % (Auto) (3-14) % Eos % (Auto) (2-4) % Baso % (Auto) (0-2) % Neut # (Auto) (1578-3429) /uL Lymph # (Auto) (8723-8805) /uL Gosper # (Auto) (0-900) /uL Eos # (Auto) (0-450) /uL Baso # (Auto) (0-100) /uL D-Dimer (<230) ng/mL Sodium (137-145) mmol/L Potassium (3.4-5.1) mmol/L Chloride (98-107) mmol/L Carbon Dioxide (22-32) mmol/L BUN (7-17) mg/dL Creatinine (0.52-1.04) mg/dL Estimated GFR (>60) mL/min BUN/Creatinine Ratio (6-22) Glucose (80-110) mg/dL Calcium (8.4-10.2) mg/dL Magnesium (1.6-2.3) mg/dL Total Bilirubin (0.2-1.3) mg/dL AST (14-36) IU/L ALT (<35) IU/L Alkaline Phosphatase (38-126) U/L Total Creatine Kinase 72 (30-135) U/L CK-MB (CK-2) TNP CK-MB (CK-2) Rel Index TNP Troponin I 0.021 (0.01-0.034) ng/mL Total Protein (6.3-8.2) g/dL Albumin (3.5-5.0) g/dL Globulin (1.7-4.1) g/dL Albumin/Globulin Ratio (1.0-2.8) Lipase (23-300) U/L Imaging Data Chest x-ray: Radiologist's Impression: [address] [address] XRay Report Signed Patient: Oxana Spencer MR#: [id number] : 1935 Acct:[id number] Age/Sex: 86 / F Date of Service: 06/29/21 Loc: ED Accession Number: [id number] ?? Procedure: XR chest 1V Ordering Provider: Kyrie Valentin D.O. PROCEDURE:? XR CHEST 1V ? INDICATIONS:? chest pain ? TECHNIQUE:? One view of the chest was acquired.? ? COMPARISON:? [facility], CR, XR CHEST 1V, 11/10/2020, 3:43. ? FINDINGS:? ? Surgical changes and devices:? None.? ? Lungs and pleura:? Lungs are clear.? No pleural effusions or pneumothorax.? ? Mediastinum:? Mediastinal contours appear normal.? Heart size is normal.? ? Bones and chest wall:? No suspicious bony lesions.? Overlying soft tissues appear unremarkable.? ? IMPRESSION:? No evidence acute pulmonary process. ? ? ? Dictated by: Tien Dimas M.D. on 06/29/2021 at 19:50 ? ? Approved by: Tien Dimas M.D. on 06/29/2021 at 19:51 ? MDM Narrative Medical decision making narrative: Multiple causes of chest pain considered including LA, PE, pneumothorax, pneumonia, aortic dissection, and pleurisy. Patient reports no radiation, no diaphoresis, no provocation with exertion, and no vomiting Patient's symptoms improved over duration of stay with above-stated therapies. Findings and discharge diagnosis discussed with patient/family followed by verbalization of understanding Return precautions discussed with patient/family whom verbalize understanding. Discharge Plan Departure Patient Disposition: Home Clinical Impression: Atypical chest pain Instructions: DI for High Blood Pressure, DI for Atypical Chest Pain Activity Restrictions/Additional Instructions: *You have been diagnosed with [atypical chest pain. Your history and physical exam as well as labs, EKGs and imaging is reassuring and there is no suggestion at this point time that you are having a heart attack, blood clot, pneumonia or other diagnosis that would require a specific or immediate intervention *What to do: *Please continue to take your regular medications as directed. [ ] New medication prescriptions sent to your pharmacy: [ ] [ ] New medication written as a paper prescription [ ] No new medications given *Please follow up with your primary care provider in 2-3 days, call for an appointment. Let them know you were seen in the Emergency Department and that we ask that you be seen in follow up. We will electronically transmit a record of today's note if your PCP is in our system *If you do not have a primary care provider please contact the [facility] Resource line at [phone]. They will ask some questions about your medical history and help get you set up with a doctor in the community. *Return to Emergency Department if you should have any new, worsening or concerning symptoms, such as [fever greater than 101 F, shaking chills, worsening pain, persistent vomiting or other bothersome symptoms] Prescriptions: No Action apixaban 5 mg tablet 5 mg PO BID Qty: 180 0RF esomeprazole magnesium [Nexium] 40 mg capsule,delayed release(DR/EC) 40 mg PO BID 0RF ezetimibe 10 mg tablet 5 mg PO DAILY Qty: 30 0RF melatonin 10 mg capsule 10 mg PO BEDTIME PRN0RF theanine 200 mg capsule 400 mg PO BID 0RF cyanocobalamin (vitamin B-12) [Vitamin B-12] 1,000 mcg tablet 1,000 mcg PO DAILY 0RF multivitamin tablet 1 tab PO DAILY Qty: 30 0RF calcium carbonate 500 mg calcium (1,250 mg) capsule 500 mg PO BID Qty: 60 0RF Rx Instructions: give after food/meal arginine (L-arginine) 500 mg capsule 500 mg PO .QHS Qty: 30 0RF cholecalciferol (vitamin D3) 400 unit capsule 400 unit PO DAILY Qty: 30 0RF alprazolam 0.25 mg tablet 0.25 mg PO BEDTIME 0RF FISH OIL 1,400 mg 2,800 mg PO .QD Qty: 60 0RF colesevelam [WelChol] 625 mg tablet 2 tab PO BID 0RF Rx Instructions: give with food (meal/snack) Referrals: Evita Jarvis DO [Primary Care Provider] -
--- NOTE | 2021-06-29 20:24 | PC.NURSE ---
Pt states last night she was awoken by a sudden jolting pain in her chest. Pt now reports no pain and denies SOB, or any other symptoms
[2021-06-29 20:30] LABS: D Dimer < 200 ng/mL (<230)
[2021-06-29 20:41] LABS: Alanine Aminotransferase 27 IU/L (<35); Albumin 4.1 g/dL (3.5-5.0); Albumin Globulin Ratio 1.5 (1.0-2.8); Alkaline Phosphatase 88 U/L (38-126); Aspartate Aminotransferase 33 IU/L (14-36); Bilirubin Total 0.7 mg/dL (0.2-1.3); Blood Urea Nitrogen 17 mg/dL (7-17); Calcium 8.7 mg/dL (8.4-10.2); Carbon Dioxide 27 mmol/L (22-32); Chloride 110 mmol/L (98-107); Creatine Kinase 83 U/L (30-135); Estimated Glomerular Filt Rate > 60 mL/min (>60); Globulin 2.7 g/dL (1.7-4.1); Glucose 137 mg/dL (80-110); HEMOLYSIS < 15 (0-50); Lipase 73 U/L (23-300); Magnesium 2.1 mg/dL (1.6-2.3); Potassium 3.7 mmol/L (3.4-5.1); Sodium 141 mmol/L (137-145); Total Protein 6.8 g/dL (6.3-8.2)
[2021-06-29 20:53] LABS: Troponin I 0.015 ng/mL (0.01-0.034)
[2021-06-29 22:08] LABS: Creatine Kinase 72 U/L (30-135)
[2021-06-29 22:21] LABS: Troponin I 0.021 ng/mL (0.01-0.034)
== END 2021-06-29 23:10 | disposition home or self-care (01) ==
PROVIDERS: Emergency Provider Emergency Medicine; PCP Family Medicine
DX: R07.89 Other chest pain (principal); Z79.01 Long term (current) use of anticoagulants
CPT/HCPCS: 36415; 71045; 80053; 82550; 83690; 83735; 84484; 85025; 85379; 93005; 99283; 99284

== ENCOUNTER → 2021-09-20 08:44 | Outpatient (CLI) | payer MEDICARE, OTHER, SELFPAY ==
--- NOTE | 2021-09-20 09:22 | DI.RAD.S_ITS ---
PROCEDURE: XR HAND LT MIN 3V INDICATIONS: painful distal thumb with crepitus, no trauma, arthritis? TECHNIQUE: 3 views of the hand(s) acquired. COMPARISON: None. FINDINGS: Bones: No fractures or dislocations. Carpal bones are normally aligned. No suspicious bony lesions. Moderate degenerative joint disease. Osteopenia. Soft tissues: No suspicious soft tissue calcifications. IMPRESSION: 1. No acute osseous abnormalities. 2. Moderate degenerative joint disease. 3. Osteopenia. Dictated by: Kevin Suarez M.D. on 09/20/2021 at 12:28 Approved by: Kevin Suarez M.D. on 09/20/2021 at 12:30
[2021-09-20 10:46] LABS: Add Manual Diff / Slide Review NO; Basophils Absolute Auto 100 /uL (0-100); Basophils Percent Auto 1.3 % (0-2); Eosinophils Absolute Auto 200 /uL (0-450); Hematocrit 43.4 % (36-46); Hemoglobin 14.2 g/dL (12.0-16.0); Lymphocytes Absolute Auto 1400 /uL (1100-4500); Lymphocytes Percent Auto 30.2 % (25-40); Mean Corpuscular HGB Conc 32.8 % (30-36); Mean Corpuscular Volume 91.3 fL (80-100); Monocytes Absolute Auto 400 /uL (0-900); Monocytes Percent Auto 9.3 % (3-14); Neutrophils Absolute Auto 2600 /uL (1500-7000); Neutrophils Percent Auto 55.2 % (50-75); Platelet Count 258 X10^3/uL (150-400); Red Blood Cell Count 4.76 X10^6/uL (4.0-5.2); Red Cell Distribution Width 14.2 % (11.6-14.8); White Blood Cell Count 4.7 X10^3/uL (4.5-11.0)
[2021-09-20 10:57] LABS: Alanine Aminotransferase 18 IU/L (<35); Albumin 4.1 g/dL (3.5-5.0); Albumin Globulin Ratio 1.6 (1.0-2.8); Alkaline Phosphatase 101 U/L (38-126); Aspartate Aminotransferase 29 IU/L (14-36); BUN Creatinine Ratio 22.3 (6-22); Bilirubin Total 0.9 mg/dL (0.2-1.3); Blood Urea Nitrogen 21 mg/dL (7-17); Calcium 8.8 mg/dL (8.4-10.2); Carbon Dioxide 28 mmol/L (22-32); Chloride 109 mmol/L (98-107); Cholesterol 188 mg/dL (140-199); Estimated Glomerular Filt Rate 60 mL/min (>60); Globulin 2.6 g/dL (1.7-4.1); Glucose 89 mg/dL (80-110); HDL Cholesterol 65 mg/dL (40-60); HEMOLYSIS < 15 (0-50); LDL Cholesterol Calculated 101 mg/dL (<100); Potassium 4.4 mmol/L (3.4-5.1); Sodium 141 mmol/L (137-145); Total Protein 6.7 g/dL (6.3-8.2); Triglycerides 109 mg/dL (35-150)
[2021-09-20 11:54] LABS: TSH w/ Reflex to FT4 2.01 uIU/mL (0.47-4.68)
== END ==
PROVIDERS: PCP Pediatrics; Referring Provider Pediatrics; Visit Provider Pediatrics
DX: M79.646 Pain in unspecified finger(s) (principal); R79.89 Other specified abnormal findings of blood chemistry; E04.1 Nontoxic single thyroid nodule; Z79.01 Long term (current) use of anticoagulants; E78.2 Mixed hyperlipidemia; K21.9 Gastro-esophageal reflux disease without esophagitis; M19.042 Primary osteoarthritis, left hand; M85.842 Other specified disorders of bone density and structure, left hand
CPT/HCPCS: 36415; 73130; 80053; 80061; 84443; 85025

== ENCOUNTER → 2021-10-01 12:20 | Outpatient (CLI) | payer MEDICARE, OTHER, SELFPAY | PROVIDERS: PCP Pediatrics; Referring Provider Pediatrics; Visit Provider Pediatrics | DX: Z78.0 Asymptomatic menopausal state (principal); M81.0 Age-related osteoporosis without current pathological fracture; E55.9 Vitamin D deficiency, unspecified; Z13.820 Encounter for screening for osteoporosis; Z92.23 Personal history of estrogen therapy | CPT/HCPCS: 77080 ==

== ENCOUNTER → 2022-02-04 15:37 | Outpatient (CLI) | payer MEDICARE, OTHER, SELFPAY | PROVIDERS: Visit Provider Physician Assistant Medical | DX: R30.0 Dysuria (principal) | CPT/HCPCS: 87077; 87086; 87186 ==

== ENCOUNTER → 2022-02-25 15:25 | Outpatient (CLI) | payer MEDICARE, OTHER, SELFPAY | PROVIDERS: Visit Provider Registered Nurse | DX: R30.0 Dysuria (principal) | CPT/HCPCS: 87077; 87086; 87186 ==

== ENCOUNTER 2022-03-11 15:28 | Emergency (ER) | payer MEDICARE, OTHER, SELFPAY ==
[2022-03-11] VITALS (8 sets, daily range): BP systolic 125–151; BP diastolic 61–75; PULSE 60–76; RESP 16–24; TEMP 36.2; O2SAT 97–99; BMI 23.1
--- NOTE | 2022-03-11 15:52 | DI.CT.S_ITS ---
PROCEDURE: CT HEAD/BRAIN WO CON INDICATIONS: blurry vision, headache TECHNIQUE: Noncontrast 4.5 mm thick angled axial sections acquired from the foramen magnum to the vertex, with coronal and sagittal reformats. For radiation dose reduction, the following was used: automated exposure control, adjustment of mA and/or kV according to patient size. COMPARISON: [facility], CT, HEAD WITHOUT CONTRAST, 11/25/2016, 15:40. FINDINGS: Image quality: Excellent. CSF spaces: Basal cisterns are patent. No extra-axial fluid collections. The ventricles are symmetric in size and shape. Brain: No intracranial bleeds or masses. There is cerebral volume loss for age, with resultant ventricular and sulcal prominence. There are periventricular and deep white matter chronic small vessel ischemic changes. There is intracranial internal carotid artery atherosclerosis. Skull and face: Calvarium and visualized facial bones appear intact, without suspicious lesions. Sinuses: Visualized sinuses and mastoids are clear. IMPRESSION: No acute intracranial disease process. Dictated by: Cherelle Bustillos MD, PhD on 03/11/2022 at 16:07 Approved by: Cherelle Bustillos MD, PhD on 03/11/2022 at 16:09
--- NOTE | 2022-03-11 15:52 | DI.RAD.S_ITS ---
PROCEDURE: XR CHEST 1V INDICATIONS: chest pain TECHNIQUE: One view of the chest was acquired. COMPARISON: [facility], CR, XR CHEST 1V, 06/29/2021, 19:17. FINDINGS: Surgical changes and devices: None. Lungs and pleura: Lungs are clear. No pleural effusions or pneumothorax. Mediastinum: Mediastinal contours appear normal. Heart size is normal. Bones and chest wall: No suspicious bony lesions. Overlying soft tissues appear unremarkable. IMPRESSION: No acute cardiopulmonary pathology. Dictated by: Mitch Johnson M.D. on 03/11/2022 at 16:14 Approved by: Mitch Johnson M.D. on 03/11/2022 at 16:14
[2022-03-11 16:42] LABS: Add Manual Diff / Slide Review NO; Basophils Absolute Auto 100 /uL (0-100); Eosinophils Absolute Auto 200 /uL (0-450); Eosinophils Percent Auto 3.1 % (2-4); Hemoglobin 13.6 g/dL (12.0-16.0); Lymphocytes Absolute Auto 1300 /uL (1100-4500); Lymphocytes Percent Auto 24.4 % (25-40); Mean Corpuscular HGB Conc 33.3 % (30-36); Mean Corpuscular Hemoglobin 30.3 PG (26-34); Mean Corpuscular Volume 91.1 fL (80-100); Monocytes Absolute Auto 400 /uL (0-900); Neutrophils Absolute Auto 3400 /uL (1500-7000); Neutrophils Percent Auto 63.5 % (50-75); Platelet Count 274 X10^3/uL (150-400); Red Blood Cell Count 4.49 X10^6/uL (4.0-5.2); Red Cell Distribution Width 14.7 % (11.6-14.8); White Blood Cell Count 5.4 X10^3/uL (4.5-11.0)
[2022-03-11 16:46] LABS: Alanine Aminotransferase 24 IU/L (<35); Albumin Globulin Ratio 1.4 (1.0-2.8); Alkaline Phosphatase 77 U/L (38-126); Aspartate Aminotransferase 27 IU/L (14-36); BUN Creatinine Ratio 18.9 (6-22); Bilirubin Total 0.8 mg/dL (0.2-1.3); Blood Urea Nitrogen 14 mg/dL (7-17); Calcium 8.4 mg/dL (8.4-10.2); Carbon Dioxide 23 mmol/L (22-32); Chloride 109 mmol/L (98-107); Creatine Kinase 52 U/L (30-135); Estimated Glomerular Filt Rate > 60 mL/min (>60); Globulin 2.8 g/dL (1.7-4.1); Glucose 101 mg/dL (80-110); HEMOLYSIS < 15 (0-50); INR 1.3 (0.9-1.3); Lipase 66 U/L (23-300); Magnesium 2.1 mg/dL (1.6-2.3); Potassium 4.1 mmol/L (3.4-5.1); Prothrombin Time 15.2 SECONDS (10.1-12.7); Sodium 139 mmol/L (137-145); Total Protein 6.8 g/dL (6.3-8.2)
[2022-03-11 16:49] LABS: PTT Partial Thromboplastin Tim 37 SECONDS (26-36)
[2022-03-11 16:57] LABS: Troponin I < 0.012 ng/mL (0.01-0.034)
--- NOTE | 2022-03-11 20:13 | PC.NURSE ---
Takes Eliquis for history of blood clot.
[2022-03-11 20:36] LABS: Troponin I 0.013 ng/mL (0.01-0.034)
--- NOTE | 2022-03-11 20:57 | ED.CHESTPAIN ---
HPI - Chest Pain General Chief Complaint: Chest Pain Stated Complaint: waves of pain in head, arm, chest Time Seen by Provider: 03/11/22 19:15 History of Present Illness HPI narrative: 86-year-old female nonsmoker with history of elevated LFTs, tubular adenoma of the colon, degenerative cervical spine, long-term use of anticoagulants presents with various vague symptoms that have been present for many months. She states that she is been having waves of pain across her scalp for many months without obvious provocation or palliation. She has no symptoms regarding headache right now. She denies any trauma, fever chills and has no neck pain. When present she denies other symptoms such as dizziness, weakness or lightheadedness. She has no blurred vision, trouble speech or extremity numbness, tingling or weakness. Additionally she has been having wandering episodes of sharp and stabbing, very brief chest pain without obvious provocation, palliation for many months. She denies any shortness of breath, cough or hemoptysis. She has no nausea, vomiting or diarrhea. She denies any change in medications or diet Related Data Home Medications Medication Instructions Recorded Confirmed cyanocobalamin (vitamin B-12) 1,000 mcg PO DAILY 08/20/17 02/25/22 1,000 mcg tablet (Vitamin B-12) esomeprazole magnesium 40 mg 40 mg PO BID 12/28/17 02/25/22 capsule,delayed release (Nexium) colesevelam 625 mg tablet (WelChol) 2 tab PO BID 01/20/18 02/25/22 melatonin 10 mg capsule 10 mg PO BEDTIME PRN 10/12/20 02/25/22 theanine 200 mg capsule 400 mg PO BID 10/12/20 02/25/22 alprazolam 0.25 mg tablet 0.25 mg PO BEDTIME 02/11/21 02/25/22 Previous Rx's Medication Instructions Recorded arginine (L-arginine) 500 mg 500 mg PO .QHS #30 caps 08/28/17 capsule calcium carbonate 500 mg calcium 500 mg PO BID #60 caps 08/28/17 (1,250 mg) capsule cholecalciferol (vitamin D3) 10 400 unit PO DAILY #30 caps 08/28/17 mcg (400 unit) capsule multivitamin 1 tab PO DAILY #30 tabs 08/28/17 FISH OIL 2,800 mg PO .QD #60 caps 02/11/21 ezetimibe 10 mg tablet 10 mg PO DAILY #30 tabs 10/04/21 alendronate 70 mg tablet (Fosamax) 70 mg PO QWEEK #12 tabs 11/13/21 apixaban 5 mg tablet (Eliquis) 5 mg PO BID #180 tabs 01/24/22 ciprofloxacin HCl 500 mg tablet 500 mg PO BID #10 tabs 02/04/22 Allergies Allergy/AdvReac Type Severity Reaction Status Date / Time Sulfa (Sulfonamide Allergy Severe TROUBLE Verified 02/25/22 15:31 Antibiotics) BREATHING [SULFA (SULFONAMIDE ANTIBIOTICS)] morphine [MORPHINE] Allergy Unknown Verified 02/25/22 15:31 Penicillins [PENICILLINS] Allergy Unknown Shakiness Verified 02/25/22 15:48 nitrofurantoin AdvReac Intermediate elevated Verified 02/25/22 15:31 liver enzymes Review of Systems Review of Systems Narrative: GENERAL: Denies chills, fatigue, malaise, fever, sweats. HEENT: Denies sinus pain, ear pain, sore throat, difficulty swallowing, dizziness. RESPIRATORY: Denies dyspnea, cough, wheezing, hemoptysis, sputum. CARDIOVASCULAR: Denies chest pain, palpitations, orthopnea, edema, GASTROINTESTINAL: Denies nausea, vomiting, abdominal pain, diarrhea, constipation, melena. : Denies dysuria, frequency, incontinence, hematuria, urinary retention. MUSCULOSKELETAL: denies weakness, joint pain, or bony pain SKIN: Denies rash, skin lesions, or other NEUROLOGIC: Denies weakness, headache, numbness, change in speech, confusion, seizures, incoordination. PSYCHIATRIC: No concerning psychosocial issues. 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/08/15) Measles Painful menstrual periods Peptic ulcer disease (1982) Plantar warts (1952) Plantar warts 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) Thumb pain Thyroid nodule (05/24/15) Tubular adenoma of colon (~04/2016) Whiplash injury Surgical History Anesthesia History of cataract removal with insertion of prosthetic lens (03/22/14) History of cataract removal with insertion of prosthetic lens (04/12/14) History of fundoplication (2000) History of phacoemulsification of cataract of left eye with intraocular lens implantation (04/12/14) History of phacoemulsification of cataract of right eye with intraocular lens implantation (03/22/14) History of tonsillectomy (~1941) Status post appendectomy Status post cholecystectomy Status post hysterectomy (1995) Status post knee surgery (1994) Family History Son Age: 62 CAD (coronary artery disease) Heart attack Son Age: 57 Prostate cancer Father Heart disease Cardiac aneurysm Sister Age: 81 Malignant neoplasm of female breast, unspecified laterality, unspecified site of breast Brother No problems noted. Son No problems noted. Grandfather Heart attack Grandmother Cancer Mother Ovarian cancer Social History Smoking Status: Never smoker Smoking Status: Never smoker alcohol intake frequency: 0-2 drinks per day Substance Use Type: does not use Exam Narrative Exam Narrative: GENERAL: [86] year old patient appears stated age. Well-developed patient, in mild distress. HEAD: Atraumatic. Normocephalic. EYES: Pupils equal round and reactive. Extraocular motions intact. No scleral icterus. No injection or drainage. ENT: Nose without bleeding, purulent drainage. Throat without erythema, tonsillar hypertrophy or exudate. Airway patent. NECK: Trachea midline. Non tender CARDIOVASCULAR: Regular rate and rhythm without murmurs, gallops, or rubs. RESPIRATORY: Clear to auscultation. Breath sounds equal bilaterally. No wheezes, rales, or rhonchi. GASTROINTESTINAL: Abdomen soft, non-tender, nondistended. EXTREMITIES: No edema or joint tenderness. BACK: Nontender without deformity or crepitance. No flank tenderness. NEURO: AOx3. SKIN: No rash or erythema of visible areas NIH Stroke Scale 1a. LOC: Patient is alert and keenly responsive (0) 1b. LOC Questions: Patient answers both LOC questions accurately (0) 1c. LOC Commands: Patient performs both tasks correctly (0) 2. Best Gaze: Normal (0) 3. Visual: No visual loss (0) 4. Facial palsy: Normal symmetrical movements (0) 5. Motor arm: No drift (0) 6. Motor leg: No drift (0) 7. Limb ataxia: Absent (0) 8. Sensory: Normal (0) 9. Best language: No aphasia; normal (0) 10. Dysarthria: Normal (0) 11. Extinction and inattention: No abnormality (0) NIHSS: 0 Initial Vital Signs Initial Vital Signs: Vital Signs Temperature 97.2 F L 03/11/22 15:46 Pulse Rate 76 03/11/22 15:46 Respiratory Rate 16 03/11/22 15:46 Blood Pressure 151/70 H 03/11/22 15:46 Pulse Oximetry 98 03/11/22 15:46 Oxygen Delivery Method 03/11/22 15:46 Course Orders Ordered: ED Orders 03/11/22 21:22 Urine Culture Stat Urine Microscopic Stat Discontinued Medications Cyclobenzaprine HCl (Cyclobenzaprine 10 Mg Prepack) 1 bottle MISC SEEINSTR ONE Stop: 03/11/22 21:53 Last Admin: 03/11/22 21:57 Dose: 1 bottle Documented By: NEHEMIAS Lidocaine (Lidocaine Patch 1 Each Adh..Patch) 1 each TOP NOW ONE Stop: 03/11/22 21:53 Last Admin: 03/11/22 21:57 Dose: 1 each Documented By: NEHEMIAS Vital Signs Vital signs: Vital Signs - 8 hr 03/11/22 22:05 Pulse Rate 66 Respiratory Rate 18 Blood Pressure 135/75 Pulse Oximetry 97 Oxygen Delivery Method Room Air MDM - Chest Pain Lab Data Result diagrams: 03/11/22 16:20 03/11/22 16:20 Labs: Lab Results 03/11/22 03/11/22 03/11/22 Range/Units 16:20 16:20 16:20 WBC 5.4 (4.5-11.0) X10^3/uL RBC 4.49 (4.0-5.2) X10^6/uL Hgb 13.6 (12.0-16.0) g/dL Hct 41.0 (36-46) % MCV 91.1 (80-100) fL MCH 30.3 (26-34) PG MCHC 33.3 (30-36) % RDW 14.7 (11.6-14.8) % Plt Count 274 (150-400) X10^3/uL Neut % (Auto) 63.5 (50-75) % Lymph % (Auto) 24.4 L (25-40) % Dickson % (Auto) 8.0 (3-14) % Eos % (Auto) 3.1 (2-4) % Baso % (Auto) 1.0 (0-2) % Neut # (Auto) 3400 (1091-9063) /uL Lymph # (Auto) 1300 (4875-1582) /uL Dickson # (Auto) 400 (0-900) /uL Eos # (Auto) 200 (0-450) /uL Baso # (Auto) 100 (0-100) /uL PT 15.2 H (10.1-12.7) SECONDS INR 1.3 (0.9-1.3) APTT 37 H (26-36) SECONDS Sodium 139 (137-145) mmol/L Potassium 4.1 (3.4-5.1) mmol/L Chloride 109 H (98-107) mmol/L Carbon Dioxide 23 (22-32) mmol/L BUN 14 (7-17) mg/dL Creatinine 0.74 (0.52-1.04) mg/dL Estimated GFR > 60 (>60) mL/min BUN/Creatinine Ratio 18.9 (6-22) Glucose 101 (80-110) mg/dL Calcium 8.4 (8.4-10.2) mg/dL Magnesium 2.1 (1.6-2.3) mg/dL Total Bilirubin 0.8 (0.2-1.3) mg/dL AST 27 (14-36) IU/L ALT 24 (<35) IU/L Alkaline Phosphatase 77 (38-126) U/L Total Creatine Kinase 52 (30-135) U/L CK-MB (CK-2) TNP CK-MB (CK-2) Rel Index TNP Troponin I < 0.012 (0.01-0.034) ng/mL Total Protein 6.8 (6.3-8.2) g/dL Albumin 4.0 (3.5-5.0) g/dL Globulin 2.8 (1.7-4.1) g/dL Albumin/Globulin Ratio 1.4 (1.0-2.8) Lipase 66 (23-300) U/L Urine RBC (0-5/HPF) Urine WBC (0-5/HPF) Ur Squamous Epith Cells (0-5/HPF) Ur Transition Epith Cell (0-5/HPF) Urine Bacteria (None) Ur Culture Indicated? 03/11/22 03/11/22 Range/Units 19:54 21:22 WBC (4.5-11.0) X10^3/uL RBC (4.0-5.2) X10^6/uL Hgb (12.0-16.0) g/dL Hct (36-46) % MCV (80-100) fL MCH (26-34) PG MCHC (30-36) % RDW (11.6-14.8) % Plt Count (150-400) X10^3/uL Neut % (Auto) (50-75) % Lymph % (Auto) (25-40) % Dickson % (Auto) (3-14) % Eos % (Auto) (2-4) % Baso % (Auto) (0-2) % Neut # (Auto) (3008-3810) /uL Lymph # (Auto) (3040-1793) /uL Dickson # (Auto) (0-900) /uL Eos # (Auto) (0-450) /uL Baso # (Auto) (0-100) /uL PT (10.1-12.7) SECONDS INR (0.9-1.3) APTT (26-36) SECONDS Sodium (137-145) mmol/L Potassium (3.4-5.1) mmol/L Chloride (98-107) mmol/L Carbon Dioxide (22-32) mmol/L BUN (7-17) mg/dL Creatinine (0.52-1.04) mg/dL Estimated GFR (>60) mL/min BUN/Creatinine Ratio (6-22) Glucose (80-110) mg/dL Calcium (8.4-10.2) mg/dL Magnesium (1.6-2.3) mg/dL Total Bilirubin (0.2-1.3) mg/dL AST (14-36) IU/L ALT (<35) IU/L Alkaline Phosphatase (38-126) U/L Total Creatine Kinase (30-135) U/L CK-MB (CK-2) CK-MB (CK-2) Rel Index Troponin I 0.013 (0.01-0.034) ng/mL Total Protein (6.3-8.2) g/dL Albumin (3.5-5.0) g/dL Globulin (1.7-4.1) g/dL Albumin/Globulin Ratio (1.0-2.8) Lipase (23-300) U/L Urine RBC 0-1/hpf D (0-5/HPF) Urine WBC 1-5/hpf (0-5/HPF) Ur Squamous Epith Cells 1-5 /hpf (0-5/HPF) Ur Transition Epith Cell 0-1/hpf (0-5/HPF) Urine Bacteria Occasional (0-1) (None) Ur Culture Indicated? Specimen cultured Urine Dip Bedside Urine Glucose Negative Bedside Urine Bilirubin - Negative Bedside Urine Ketone - Negative Urine Specific [place] 1.015 Bedside Urine Occult Blood - Negative Bedside Urine pH 6.0 Bedside Urine Protein - Negative Bedside Urine Urobilinogen - Negative Bedside Urine Nitrite - Negative Bedside Urine Leukocytes +/- 15 Esterase Discharge Plan Departure Patient Disposition: Home Clinical Impression: Headache, Atypical chest pain Instructions: DI for Atypical Chest Pain Activity Restrictions/Additional Instructions: *You have been diagnosed with [headache and atypical chest pain. As we discussed your history and physical exam as well as labs, EKG and imaging are very reassuring and there is no evidence of stroke, heart attack or other specific diagnosis that would require a specific or immediate intervention] *What to do: *Please continue to take your regular medications as directed. [ x] you were given a prepack of Flexeril 10 mg tablets. As we discussed please use your pill cutter to cut this in half and take a dose tonight to see if it helps with any of your symptoms. If so you may take it up to 3 times a day as needed and please discuss this as a potential option to take moving forward with your primary care provider *Please follow up with your primary care provider in 2-3 days, call for an appointment. Let them know you were seen in the Emergency Department and that we ask that you be seen in follow up. We will electronically transmit a record of today's note if your PCP is in our system *If you do not have a primary care provider please contact the [facility] Resource line at [phone]. They will ask some questions about your medical history and help get you set up with a doctor in the community. *Return to Emergency Department if you should have any new, worsening or concerning symptoms, such as [fever greater than 101 F, shaking chills, worsening pain, persistent vomiting or other bothersome symptoms] Prescriptions: No Action ciprofloxacin HCl 500 mg tablet 500 mg PO BID Qty: 10 0RF ezetimibe 10 mg tablet 10 mg PO DAILY Qty: 30 0RF alendronate [Fosamax] 70 mg tablet 70 mg PO QWEEK Qty: 12 4RF Eliquis 5 mg tablet 5 mg PO BID Qty: 180 3RF esomeprazole magnesium [Nexium] 40 mg capsule,delayed release(DR/EC) 40 mg PO BID melatonin 10 mg capsule 10 mg PO BEDTIME PRN theanine 200 mg capsule 400 mg PO BID cyanocobalamin (vitamin B-12) [Vitamin B-12] 1,000 mcg tablet 1,000 mcg PO DAILY multivitamin tablet 1 tab PO DAILY Qty: 30 0RF calcium carbonate 500 mg calcium (1,250 mg) capsule 500 mg PO BID Qty: 60 0RF Rx Instructions: give after food/meal arginine (L-arginine) 500 mg capsule 500 mg PO .QHS Qty: 30 0RF cholecalciferol (vitamin D3) 400 unit capsule 400 unit PO DAILY Qty: 30 0RF alprazolam 0.25 mg tablet 0.25 mg PO BEDTIME FISH OIL 1,400 mg 2,800 mg PO .QD Qty: 60 0RF colesevelam [WelChol] 625 mg tablet 2 tab PO BID Rx Instructions: give with food (meal/snack) Referrals: Keyanna Dixon DO [Primary Care Provider] - Visit Report Forms: Patient Portal/API
[2022-03-11 21:51] LABS: Bacteria Urine Occasional (0-1); Culture Indicated Urine Specimen Cultured; RBC Urine 0-1/HPF (0-5/HPF); Squamous Epithelial Cell Urine 1-5 /HPF (0-5/HPF); Transitional Epi Cells Urine 0-1/HPF (0-5/HPF); WBC Urine 1-5/HPF (0-5/HPF)
[2022-03-11] MEDS: CYCLOBENZAPRINE 10 MG PREPACK 1 BOTTLE MISC (21:57)
[2022-03-11] MEDS: LIDOCAINE PATCH 1 EACH ADH..PATCH TOP (21:57)
== END 2022-03-11 22:06 | disposition home or self-care (01) ==
PROVIDERS: Emergency Medicine; Emergency Provider Emergency Medicine; PCP Family Medicine
DX: R51.9 Headache, unspecified (principal); R07.89 Other chest pain; Z79.01 Long term (current) use of anticoagulants; Z79.899 Other long term (current) drug therapy
CPT/HCPCS: 36415; 70450; 71045; 80053; 81003; 81015; 82550; 83690; 83735; 84484; 85025; 85610; 85730; 87086; 93005; 99284

== ENCOUNTER → 2022-03-19 11:26 | Outpatient (CLI) | payer MEDICARE, OTHER, SELFPAY ==
[2022-03-19 13:08] LABS: Alanine Aminotransferase 22 IU/L (<35); Albumin Globulin Ratio 1.5 (1.0-2.8); Alkaline Phosphatase 77 U/L (38-126); Aspartate Aminotransferase 29 IU/L (14-36); BUN Creatinine Ratio 25.3 (6-22); Bilirubin Total 0.9 mg/dL (0.2-1.3); Bilirubin Unconjugated 0.6 mg/dL (0.0-1.1); Blood Urea Nitrogen 20 mg/dL (7-17); Calcium 8.9 mg/dL (8.4-10.2); Carbon Dioxide 28 mmol/L (22-32); Chloride 106 mmol/L (98-107); Estimated Glomerular Filt Rate > 60 mL/min (>60); Globulin 2.7 g/dL (1.7-4.1); Glucose 70 mg/dL (80-110); HEMOLYSIS 31 (0-50); Potassium 4.7 mmol/L (3.4-5.1); Sodium 139 mmol/L (137-145); Total Protein 6.7 g/dL (6.3-8.2)
== END ==
PROVIDERS: PCP Family Medicine; Referring Provider Psychiatry & Neurology Psychiatry; Visit Provider Psychiatry & Neurology Psychiatry
DX: Z79.899 Other long term (current) drug therapy (principal); F41.1 Generalized anxiety disorder
CPT/HCPCS: 36415; 80053; 80076

== ENCOUNTER → 2022-04-16 12:09 | Outpatient (CLI) | payer MEDICARE, OTHER, SELFPAY ==
--- NOTE | 2022-04-16 12:09 | DI.US.S_ITS ---
PROCEDURE: US CAROTID DOPPLER BI INDICATIONS: ASYMPTOMATIC CAROTID ARTERY STENOSIS/HYPERLIPID TECHNIQUE: Color and pulse Doppler interrogation was performed of both carotid systems, with image documentation and velocity measurements. COMPARISON: [facility], , CAROTID ARTERY DOPPLER BILAT, 07/08/2017, 13:08. [facility], , US CAROTID DOPPLER BI, 08/04/2018, 12:56. FINDINGS: Stenosis calculations are based on SRU (Society of Radiologists in Ultrasound) criteria. The flow velocities and the arterial waveforms are normal within both carotid arterial systems. Atherosclerotic plaque is seen on both sides. The estimated degree of internal carotid artery stenosis is less than 50%. Antegrade flow is confirmed within both vertebral arteries. IMPRESSION: No hemodynamically significant stenosis is seen. Atherosclerotic plaque is noted bilaterally. Dictated by: Julio Pina M.D. on 04/16/2022 at 11:58 Approved by: Julio Pina M.D. on 04/16/2022 at 11:59
== END ==
PROVIDERS: PCP Family Medicine; Referring Provider Family Medicine; Visit Provider Family Medicine
DX: I65.23 Occlusion and stenosis of bilateral carotid arteries (principal); E78.2 Mixed hyperlipidemia
CPT/HCPCS: 93880

== ENCOUNTER → 2022-10-22 08:37 | Outpatient (CLI) | payer MEDICARE, OTHER, SELFPAY ==
[2022-10-22 10:04] LABS: Blood Urea Nitrogen 23 mg/dL (7-17); Calcium 8.7 mg/dL (8.4-10.2); Carbon Dioxide 26 mmol/L (22-32); Chloride 108 mmol/L (98-107); Cholesterol 192 mg/dL (140-199); Estimated Glomerular Filt Rate > 60 mL/min (>60); Glucose 104 mg/dL (80-110); HDL Cholesterol 77 mg/dL (40-60); HEMOLYSIS < 15 (0-50); LDL Cholesterol Calculated 92 mg/dL (<100); Potassium 4.6 mmol/L (3.4-5.1); Sodium 139 mmol/L (137-145); Triglycerides 114 mg/dL (35-150)
== END ==
PROVIDERS: PCP Family Medicine; Referring Provider Family Medicine; Visit Provider Family Medicine
DX: E78.5 Hyperlipidemia, unspecified (principal); Z79.899 Other long term (current) drug therapy; R30.0 Dysuria
CPT/HCPCS: 36415; 80048; 80061; 87077; 87086; 87186

== ENCOUNTER → 2022-11-05 09:20 | Outpatient (CLI) | payer MEDICARE, OTHER, SELFPAY | PROVIDERS: PCP Family Medicine; Visit Provider Family Medicine | DX: N39.0 Urinary tract infection, site not specified (principal) | CPT/HCPCS: 87086 ==

== ENCOUNTER 2023-03-11 19:47 | Emergency (ER) | payer MEDICARE, OTHER, SELFPAY ==
[2023-03-11] VITALS (11 sets, daily range): BP systolic 132–179; BP diastolic 63–80; PULSE 52–67; RESP 16–22; TEMP 36.4; O2SAT 96–99; BMI 22.3
--- NOTE | 2023-03-11 19:58 | DI.RAD.S_ITS ---
PROCEDURE: XR CHEST 1V INDICATIONS: chest pain TECHNIQUE: One view of the chest was acquired. COMPARISON: [facility], CR, XR CHEST 1V, 03/11/2022, 15:58. FINDINGS: Surgical changes and devices: None. Lungs and pleura: Lungs are clear. No pleural effusions or pneumothorax. Mediastinum: Mediastinal contours appear normal. Heart size is normal. Bones and chest wall: No suspicious bony lesions. Overlying soft tissues appear unremarkable. IMPRESSION: No acute cardiopulmonary abnormality is seen. Dictated by: Amparo Menon M.D. on 03/11/2023 at 20:45 Approved by: Amparo Menon M.D. on 03/11/2023 at 20:46
[2023-03-11 20:22] LABS: Add Manual Diff / Slide Review NO; Basophils Absolute Auto 100 /uL (0-100); Basophils Percent Auto 1.3 % (0-2); Eosinophils Absolute Auto 300 /uL (0-450); Eosinophils Percent Auto 4.5 % (2-4); Hematocrit 39.7 % (36-46); Hemoglobin 13.4 g/dL (12.0-16.0); Lymphocytes Absolute Auto 2000 /uL (1100-4500); Lymphocytes Percent Auto 32.3 % (25-40); Mean Corpuscular HGB Conc 33.9 % (30-36); Mean Corpuscular Hemoglobin 30.9 PG (26-34); Mean Corpuscular Volume 91.2 fL (80-100); Monocytes Absolute Auto 400 /uL (0-900); Monocytes Percent Auto 7.3 % (3-14); Neutrophils Absolute Auto 3300 /uL (1500-7000); Neutrophils Percent Auto 54.6 % (50-75); Platelet Count 301 X10^3/uL (150-400); Red Blood Cell Count 4.35 X10^6/uL (4.0-5.2); Red Cell Distribution Width 14.5 % (11.6-14.8); White Blood Cell Count 6.1 X10^3/uL (4.5-11.0)
[2023-03-11 20:28] LABS: INR 1.2 (0.9-1.3); Prothrombin Time 13.5 SECONDS (9.4-12.5)
[2023-03-11 20:31] LABS: PTT Partial Thromboplastin Tim 32 SECONDS (25.1-36.5)
[2023-03-11 20:33] LABS: Alanine Aminotransferase 20 IU/L (<35); Albumin Globulin Ratio 1.4 (1.0-2.8); Alkaline Phosphatase 67 U/L (38-126); Aspartate Aminotransferase 25 IU/L (14-36); BUN Creatinine Ratio 17.6 (6-22); Bilirubin Total 0.8 mg/dL (0.2-1.3); Blood Urea Nitrogen 18 mg/dL (7-17); Calcium 9.1 mg/dL (8.4-10.2); Carbon Dioxide 24 mmol/L (22-32); Chloride 109 mmol/L (98-107); Creatine Kinase 49 U/L (30-135); Estimated Glomerular Filt Rate 54 mL/min (>60); Globulin 2.8 g/dL (1.7-4.1); Glucose 156 mg/dL (80-110); HEMOLYSIS < 15 (0-50); Lipase 77 U/L (23-300); Potassium 3.8 mmol/L (3.4-5.1); Sodium 138 mmol/L (137-145); Total Protein 6.8 g/dL (6.3-8.2)
[2023-03-11 20:44] LABS: Troponin I < 0.012 ng/mL (0.01-0.034)
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
[2023-03-11 22:56] LABS: Creatine Kinase 49 U/L (30-135)
[2023-03-11 23:09] LABS: Troponin I 0.015 ng/mL (0.01-0.034)
== END 2023-03-11 23:44 | disposition home or self-care (01) ==
PROVIDERS: Emergency Provider Emergency Medicine; PCP Family Medicine
DX: R07.89 Other chest pain (principal); I10 Essential (primary) hypertension; R00.1 Bradycardia, unspecified; Z79.01 Long term (current) use of anticoagulants
CPT/HCPCS: 36415; 71045; 80053; 82550; 83690; 83735; 84484; 85025; 85610; 85730; 93005; 99284

== ENCOUNTER → 2023-04-16 08:50 | Outpatient (CLI) | payer MEDICARE, SELFPAY ==
[2023-04-16 10:19] LABS: BUN Creatinine Ratio 19.6 (6-22); Blood Urea Nitrogen 18 mg/dL (7-17); Calcium 9.5 mg/dL (8.4-10.2); Carbon Dioxide 26 mmol/L (22-32); Chloride 107 mmol/L (98-107); Estimated Glomerular Filt Rate > 60 mL/min (>60); Glucose 95 mg/dL (80-110); HEMOLYSIS < 15 (0-50); Potassium 4.7 mmol/L (3.4-5.1); Sodium 138 mmol/L (137-145)
== END ==
PROVIDERS: PCP Family Medicine; Referring Provider Family Medicine; Visit Provider Family Medicine
DX: E78.5 Hyperlipidemia, unspecified (principal); I10 Essential (primary) hypertension
CPT/HCPCS: 36415; 80048

== ENCOUNTER → 2023-04-18 11:01 | Outpatient (CLI) | payer MEDICARE, SELFPAY ==
--- NOTE | 2023-04-18 | DI.MRI.S_ITS ---
PROCEDURE: MR CERVICAL SPINE WO CON INDICATIONS: Spinal stenosis, cervical region TECHNIQUE: Noncontrast sagittal T1 spin echo and T2 fast spin echo, sagittal STIR, foraminal oblique sagittal T2 fast spin echo, and axial gradient echo or T2 fast spin echo through the cervical spine. COMPARISON: None. FINDINGS: Image quality: Excellent. Alignment and Curvature: There is normal bony alignment. Bone Marrow: Marrow demonstrates normal overall signal. Spinal Cord: Visualized spinal cord has normal size and signal. No cerebellar tonsillar herniation. Paraspinous Soft Tissues: No paravertebral masses. Prevertebral soft tissues are normal in thickness. C2-C3: Normal appearance. C3-C4: Normal appearance. C4-C5: Normal appearance. C5-C6: Mild disc space narrowing and hypertrophic uncovertebral joints present. No central stenosis. Moderate right and no left foraminal stenosis C6-C7: Normal appearance. C7-T1: Normal appearance. 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 on 04/20/2023 at 11:00
== END ==
LOC: MRI 11:02
PROVIDERS: PCP Family Medicine; Referring Provider Physical Medicine & Rehabilitation Pain Medicine; Visit Provider Physical Medicine & Rehabilitation Pain Medicine
DX: M48.02 Spinal stenosis, cervical region (principal); M47.812 Spondylosis without myelopathy or radiculopathy, cervical region; M50.322 Other cervical disc degeneration at C5-C6 level
CPT/HCPCS: 72141

== ENCOUNTER → 2023-05-20 08:58 | Outpatient (CLI) | payer MEDICARE, SELFPAY ==
--- NOTE | 2023-05-20 08:59 | DI.US.S_ITS ---
PROCEDURE: US ABDOMEN LIMITED INDICATIONS: LOWER ABDOMINAL PELVIC PAIN. R/O HERNIA AND FREE FLUID TECHNIQUE: Real-time focused scanning was performed of the abdomen, with image documentation. COMPARISON: None. FINDINGS: Scanning is performed of the areas of clinical concern involving both groins as well as the midline of the pelvis. No findings of groin all femoral hernias can be seen. No free fluid can be seen. IMPRESSION: Negative ultrasound, without findings of hernia. Dictated by: Julio Pina M.D. on 05/20/2023 at 9:49 Approved by: Julio Pina M.D. on 05/20/2023 at 9:49
== END ==
LOC: US 08:58
PROVIDERS: PCP Family Medicine; Referring Provider Family Medicine; Visit Provider Family Medicine
DX: R10.30 Lower abdominal pain, unspecified (principal)
CPT/HCPCS: 76705

== ENCOUNTER → 2023-05-22 14:29 | Outpatient (CLI) | payer MEDICARE, SELFPAY ==
[2023-05-22 15:21] LABS: White Blood Cell Count 5.8 X10^3/uL (4.5-11.0)
[2023-05-22 15:22] LABS: Add Manual Diff / Slide Review NO; Basophils Absolute Auto 0 /uL (0-100); Basophils Percent Auto 0.4 % (0-2); Eosinophils Absolute Auto 200 /uL (0-450); Eosinophils Percent Auto 3.2 % (2-4); Hematocrit 39.6 % (36-46); Hemoglobin 13.3 g/dL (12.0-16.0); Lymphocytes Absolute Auto 1900 /uL (1100-4500); Lymphocytes Percent Auto 33.5 % (25-40); Mean Corpuscular HGB Conc 33.6 % (30-36); Mean Corpuscular Hemoglobin 30.2 PG (26-34); Mean Corpuscular Volume 89.9 fL (80-100); Monocytes Absolute Auto 600 /uL (0-900); Monocytes Percent Auto 9.9 % (3-14); Neutrophils Absolute Auto 3100 /uL (1500-7000); Platelet Count 313 X10^3/uL (150-400); Red Cell Distribution Width 14.6 % (11.6-14.8)
[2023-05-22 15:33] LABS: Alanine Aminotransferase 24 IU/L (<35); Albumin Globulin Ratio 1.4 (1.0-2.8); Alkaline Phosphatase 69 U/L (38-126); Aspartate Aminotransferase 30 IU/L (14-36); BUN Creatinine Ratio 17.7 (6-22); Blood Urea Nitrogen 17 mg/dL (7-17); Carbon Dioxide 22 mmol/L (22-32); Chloride 112 mmol/L (98-107); Estimated Glomerular Filt Rate 58 mL/min (>60); Globulin 2.8 g/dL (1.7-4.1); Glucose 98 mg/dL (80-110); HEMOLYSIS < 15 (0-50); Potassium 3.9 mmol/L (3.4-5.1); Sodium 141 mmol/L (137-145); Total Protein 6.8 g/dL (6.3-8.2)
[2023-05-22 15:37] LABS: High Sensitivity CRP - Cardiac 1.5 mg/L (1.0-3.0)
[2023-05-22 15:38] LABS: Rheumatoid Factor < 8.6 IU/mL (<12.0)
[2023-05-22 16:27] LABS: Erythrocyte Sedimentation Rate 1 MM/HR (0-20)
[2023-05-28 17:49] LABS: ANA Screen, IFA Negative (.)
== END ==
PROVIDERS: PCP Family Medicine; Referring Provider Ophthalmology; Visit Provider Ophthalmology
DX: H53.8 Other visual disturbances (principal); E07.89 Other specified disorders of thyroid; H10.13 Acute atopic conjunctivitis, bilateral
CPT/HCPCS: 36415; 80053; 84443; 85025; 85651; 86038; 86140; 86430

== ENCOUNTER → 2023-10-23 08:37 | Outpatient (CLI) | payer MEDICARE, SELFPAY ==
[2023-10-23 09:24] LABS: Add Manual Diff / Slide Review NO; Basophils Absolute Auto 0 /uL (0-100); Basophils Percent Auto 0.8 % (0-2); Eosinophils Absolute Auto 300 /uL (0-450); Eosinophils Percent Auto 5.2 % (2-4); Hemoglobin 13.5 g/dL (12.0-16.0); Lymphocytes Absolute Auto 1500 /uL (1100-4500); Lymphocytes Percent Auto 27.3 % (25-40); Mean Corpuscular Hemoglobin 29.5 PG (26-34); Mean Corpuscular Volume 89.5 fL (80-100); Monocytes Absolute Auto 500 /uL (0-900); Monocytes Percent Auto 9.6 % (3-14); Neutrophils Absolute Auto 3100 /uL (1500-7000); Neutrophils Percent Auto 57.1 % (50-75); Platelet Count 321 X10^3/uL (150-400); Red Blood Cell Count 4.58 X10^6/uL (4.0-5.2); Red Cell Distribution Width 15.7 % (11.6-14.8); White Blood Cell Count 5.5 X10^3/uL (4.5-11.0)
[2023-10-23 09:43] LABS: Alanine Aminotransferase 19 IU/L (<35); Albumin Globulin Ratio 1.8 (1.0-2.8); Alkaline Phosphatase 80 U/L (38-126); Aspartate Aminotransferase 25 IU/L (14-36); BUN Creatinine Ratio 22.7 (6-22); Blood Urea Nitrogen 20 mg/dL (7-17); Carbon Dioxide 24 mmol/L (22-32); Chloride 111 mmol/L (98-107); Cholesterol 189 mg/dL (140-199); Estimated Glomerular Filt Rate > 60 mL/min (>60); Globulin 2.2 g/dL (1.7-4.1); Glucose 97 mg/dL (80-110); HDL Cholesterol 76 mg/dL (40-60); HEMOLYSIS < 15 (0-50); LDL Cholesterol Calculated 90 mg/dL (<100); Potassium 4.6 mmol/L (3.4-5.1); Sodium 138 mmol/L (137-145); Total Protein 6.2 g/dL (6.3-8.2); Triglycerides 113 mg/dL (35-150)
[2023-10-23 09:46] LABS: High Sensitivity CRP - Cardiac 0.8 mg/L (1.0-3.0)
== END ==
PROVIDERS: PCP Family Medicine; Referring Provider Family Medicine; Visit Provider Family Medicine
DX: E78.5 Hyperlipidemia, unspecified (principal); Z79.01 Long term (current) use of anticoagulants
CPT/HCPCS: 36415; 80053; 80061; 85025; 86140

== ENCOUNTER 2024-07-06 11:37 | Emergency (ER) | payer MEDICARE, SELFPAY ==
[2024-07-06 11:40] VITALS: BP 146/66; PULSE 66; RESP 20; TEMP 36.6; O2SAT 98; BMI 23.1
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
[2024-07-06] MEDS: LIDOCAINE 5% PATCH 1 EACH TOP (12:21)
[2024-07-06] MEDS: ACETAMINOPHEN 325 MG TABLET 975 MG PO (12:21)
[2024-07-06] MEDS: predniSONE 20 MG TABLET 40 MG PO (12:21)
[2024-07-06 13:57] VITALS: BP 130/62; PULSE 65; RESP 16; TEMP 36.4; O2SAT 97
== END 2024-07-06 13:58 | disposition home or self-care (01) ==
PROVIDERS: Emergency Provider Physician Assistant; PCP Family Medicine
DX: M54.12 Radiculopathy, cervical region (principal); R51.9 Headache, unspecified; Z79.01 Long term (current) use of anticoagulants
CPT/HCPCS: 72125; 99283; 99284

== ENCOUNTER → 2024-11-18 13:53 | Outpatient (CLI) | payer MEDICARE, SELFPAY ==
--- NOTE | 2024-11-18 13:55 | DI.MG.S_ITS ---
MM screening mammo BI: 11/18/2024. BI-RADS: 2 CLINICAL: 89-year old female for bilateral screening mammogram. No Tyrer-Cuzick risk score calculation due to patient's age being over 85 years old. Current reported family history of breast cancer: sister. History of ovarian cancer in one first-degree relative. The patient had a prior left breast biopsy. PRIOR EXAMS: 11/04/2023, 08/14/2022, 06/20/2021, 05/29/2020. MAMMOGRAPHY TECHNIQUE: 2D and 3D (tomosynthesis) digital mammographic views obtained, with additional images as needed for full coverage. Current study was also evaluated with a Computer Aided Detection (CAD) system. DENSITY C. The breasts are heterogeneously dense, which may obscure small masses. MAMMOGRAPHY FINDINGS Right: Benign-appearing calcifications noted on the right. There are no suspicious masses, calcifications, or other findings in the breast. Left: Biopsy marker present on the left. Benign-appearing calcifications noted on the left. There are no suspicious masses, calcifications, or other findings in the breast. IMPRESSION: * No evidence of malignancy with benign findings. RECOMMENDATIONS Bilateral * Annual screening mammography. OVERALL ASSESSMENT CATEGORY BI-RADS-2: Benign. The [employer] recommends annual screening mammography beginning at age 40 for women with average risk of breast cancer. ELECTRONICALLY SIGNED: Charles Ansari M.D. on 11/20/2024 at 08:21:33 PM PT Interpreting Station ID: [id number]
== END ==
PROVIDERS: PCP Family Medicine; Referring Provider Family Medicine; Visit Provider Family Medicine
DX: Z12.31 Encounter for screening mammogram for malignant neoplasm of breast (principal); Z80.3 Family history of malignant neoplasm of breast; Z80.41 Family history of malignant neoplasm of ovary; R92.333 Mammographic heterogeneous density, bilateral breasts
CPT/HCPCS: 77063; 77067